=== PATIENT | male | born 1940 | race Caucasian/White ===

== ENCOUNTER 2018-04-14 22:26 | Emergency (ER) | payer MEDICARE, OTHER, SELFPAY ==
[2018-04-14 22:28] VITALS: BP 180/85; PULSE 66; RESP 18; TEMP 36.8; O2SAT 96; BMI 27.4
--- NOTE | 2018-04-14 22:33 | ED.RN ---
CALLED FOR EKG PER RN REQUEST, NO OLD EKG'S IN MUSE
--- NOTE | 2018-04-14 23:12 | EKG12_ITS ---
Test Reason : DIZZINESS Blood Pressure : / mmHG Vent. Rate : 067 BPM Atrial Rate : 067 BPM P-R Int : 178 ms QRS Dur : 096 ms QT Int : 416 ms P-R-T Axes : 013 018 026 degrees QTc Int : 439 ms Normal sinus rhythm Nonspecific ST abnormality Abnormal ECG Confirmed by DINESH STARKS, LUIS ([id number]), news editor SARAN MIN ([id number]) on 04/16/2018 3:02:18 PM Referred By: Confirmed By:LUIS MONTIEL MD
--- NOTE | 2018-04-14 23:12 | CT_ITS ---
STUDY: CT BRAIN WITHOUT CONTRAST REASON FOR EXAM: Male, 77 years old. Vertigo, nausea and elevated blood pressure. History of hypothyroidism. RADIATION DOSAGE (If Supplied By Facility): CTDIvol = ( 44.99 ) mGy, DLP = ( 846.73 ) mGycm TECHNIQUE: Transaxial CT imaging of the brain was performed without administration of intravenous contrast material. Individualized dose optimization techniques were used for this CT. COMPARISON: None. FINDINGS: Normal soft tissue structures. Normal calvarium. Normal size ventricles and extra-axial spaces for the patient's age. There are minimal areas of decreased attenuation within the white matter tracts of the supratentorial brain, consistent with microvascular disease changes. There are small punctate calcifications of the basal ganglia which are seen in the aging brain as a normal variant. Normal brainstem. Normal cerebellum. There is no intracranial hemorrhage. There are no findings of an acute ischemic infarction. Normal visualized paranasal sinuses. CT/Brain/Head without Contrast IMPRESSION: Normal unenhanced CT scan of the brain for age. Electronically Signed: Josie Mccarthy MD at 23:46 EDT , Service support ,
--- NOTE | 2018-04-14 23:15 | ED.DCSUM_ITS ---
- ER Visit Summary Date of Service: 04/14/18 Chief Complaint: [] Dizziness and vertigo History of Present Illness: The patient is a 77 M planing of vertigo that started an hour and a half ago lasted 5 minutes. It was sudden onset when he was trying to look for a screw at his work bench. He had 2 episodes of emesis and felt like the room was spinning. Currently his symptoms resolved. He has had benign vertigo in the past. 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 He has never had a stroke or TIA. No home treatment. Physical Examination: Vital signs reviewed General: Well-nourished well-developed Head: Normocephalic atraumatic Eyes: Pupils equal round and reactive to light extraocular movements intact ENT: TMs clear no hemotympanum no trauma Neck: Nontender full range of motion Cardiovascular: Regular rate rhythm no murmurs normal S1-S2 Respiratory: No distress clear to auscultation bilaterally chest nontender Abdomen: Soft nontender nondistended normal bowel sounds no masses Back: Nontender no CVA tenderness Extremities: Nontender active range of motion ?4 extremities no trauma Skin: Normal color no trauma Neuro alert oriented cranial nerves II through XII intact normal strength sensation reflexes Test Results: [] Emergency Department Course and Treatment: [] Patient ambulated without problem. At this time I think he likely had otolith that got blocked and semicircular canals of his inner ear. Symptoms are resolved likely dislodged. EKG shows sinus at 67 without ischemia. Lab work and CT head obtained. Lab work essentially normal except chloride 109. CT had showed nothing acute. Patient remains asymptomatic. Again I feel this is peripheral vertigo. Symptoms resolved. He will follow-up as an outpatient. Do not feel this is central Treatment Plan: [] Disposition: [] Impression: [] Peripheral vertigo This note was generated with [employer] dictation software. It may contain incorrect words, spelling, and punctuation that were not noted in review of the chart prior to signing ED Disposition - Plan for ED Patient: Chief Complaint: Dizziness
[2018-04-14 23:25] LABS: Absolute Lymphocyte Count 2.34 X10^3/ul (0.83-4.51); Anion Gap 4 (5-15); BUN 12 mg/dL (7-18); BUN/Creat Ratio 12.7 RATIO (10-20); Basophil# 0.04 X10^3/uL; Basophil% 0.5 % (0-1); Calcium,Total 8.7 mg/dL (8.5-10.1); Chloride 109 mmol/L (98-107); Creatinine, Serum 0.94 mg/dL (0.70-1.30); EST Glomerular Filtration Rate 83 mL/min (>60); Eosinophil# 0.27 X10^3/uL; Eosinophils% 3.7 % (0-5); Est Glom Filt Rate - Afr Amer 100 mL/min (>60); Estimated Creatinine Clearance 70.11 ml/min; Glucose 108 mg/dL (74-106); Hematocrit 43.7 % (40-54); Hemoglobin 14.1 g/dl (13.0-16.5); Lymphocyte # 2.34 X10^3/ul (4.0); Lymphocyte % 31.7 % (19-41); Mean Corp Hgb Conc 32.3 g/gl (32-36); Mean Corpuscular Hgb 27.7 pg (27.0-32.0); Mean Corpuscular Volume 85.9 fL (80-94); Mean Platelet Vol. 10.1 fl (6.2-12.0); Monocyte% 9.5 % (0-10); Neutrophil # 4.02 X10^3/uL (2.7-7.7); Neutrophil % 54.5 % (47-70); Platelet Count 299 K/mm3 (150-450); Potassium 3.5 mmol/L (3.5-5.1); RBC Distribution Width CV 13.7 % (11.6-14.6); RBC Distribution Width SD 43.4 fl (35.1-43.9); Red Blood Count 5.09 M/mm3 (4.6-6.2); Sodium Level 141 mmol/L (136-145); White Blood Count 7.4 K/mm3 (4.4-11.0)
[2018-04-14 23:26] LABS: POSITIVE COUNT NO; POSITIVE DIFFERENTIAL NO; POSITIVE MORPHOLOGY NO
--- NOTE | 2018-04-15 00:05 | ED.DEP ---
ED Disposition - Plan for ED Patient: Chief Complaint: Dizziness Instructions: ED Vertigo Unspecified Referrals: Care Physician,No Primary [Primary Care Provider] - Nayan Sagastume DO [NON CLINICAL AFFILIATE] -
[2018-04-15 00:25] VITALS: BP 163/79; PULSE 73; RESP 20; O2SAT 99
== END 2018-04-15 00:26 | disposition home or self-care (01) ==
LOC: ED 23:39
PROVIDERS: Emergency Provider Emergency Medicine
DX: H81.399 Other peripheral vertigo, unspecified ear (principal); K21.9 Gastro-esophageal reflux disease without esophagitis; E03.9 Hypothyroidism, unspecified; N40.0 Benign prostatic hyperplasia without lower urinary tract symptoms; I49.5 Sick sinus syndrome; Z95.0 Presence of cardiac pacemaker; Z79.899 Other long term (current) drug therapy
CPT/HCPCS: 70450; 80048; 85025; 93005; 99284; A4216

== ENCOUNTER 2018-07-03 15:24 | Emergency (ER) | payer MEDICARE, OTHER, SELFPAY ==
[2018-07-03 15:25] VITALS: BP 158/78; PULSE 73; RESP 18; TEMP 36.2; O2SAT 98; BMI 25.1
--- NOTE | 2018-07-03 15:42 | RAD_ITS ---
STUDY: X-RAY - LEFT HAND REASON FOR EXAM: Table saw injury of the distal ring finger. TECHNIQUE: 3 view(s) of the hand. COMPARISON: None. FINDINGS: Normal radiocarpal articulation. Normal distal radioulnar joint. Normal visualized carpal bones. Normal carpal articulations Normal carpometacarpal articulation of the thumb. Normal second through fifth carpometacarpal joints. Normal metacarpi. There is mild joint space narrowing of the metacarpophalangeal joint of the thumb. Normal interphalangeal joint of the thumb. Normal proximal and distal phalanges of the thumb. There is joint space narrowing and subchondral cystic change of the third metacarpophalangeal joint. There is flexion deformity of the fifth digit at the proximal interphalangeal joint. Normal phalanges of the second through fifth fingers. There is a soft tissue defect of the ulnar aspect of the distal ring finger. RAD/Hand Min 3 Views IMPRESSION: Soft tissue defect at the ulnar aspect of the distal ring finger without demonstrated fracture. 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 Flexion deformity of the fifth digit. Electronically Signed: Manny Dickey MD at 16:24 EDT Tel , Service support ,
--- NOTE | 2018-07-03 15:43 | ED.VISSUMM ---
- ER Visit Summary Date of Service: 07/03/18 Chief Complaint: Laceration History of Present Illness: The patient is a 78 M presenting with a laceration to the palmar surface of his left ring finger tip. This happened on a table saw at home 1 hour ago. He is visiting from [place]. Last tetanus unknown. Denies paresthesias or chance of foreign body. He went to the urgent care and a dressing was placed. Physical Examination: He has a 1 cm full-thickness laceration/skin avulsion with on the mid aspect of the left ring fingertip distal phalanx. No active bleeding. Normal 2 point examination at 6 mm distally. No evidence of foreign body when examined under direct lighting with good hemostasis. Test Results: Left hand x-ray was negative for fracture. Emergency Department Course and Treatment: No evidence of fracture. The wound was irrigated extensively and examined under direct lighting with good hemostasis. There is no evidence of foreign body. It was repaired with 3 size 5 nylon sutures simple interrupted without difficulty. No immediate complications. Normal distal neurovascular examination after repair. No evidence of flexor tendon laceration. Treatment Plan: Follow-up for suture removal Disposition: Home in stable condition Impression: Initial encounter complicated left ring finger laceration from table saw This note was generated with [employer] dictation software. It may contain incorrect words, spelling, and punctuation that were not noted in review of the chart prior to signing ED Disposition - Plan for ED Patient: Chief Complaint: Laceration Instructions: ED Laceration Hand Prescriptions: Cephalexin [Keflex] 500 mg PO Q6 3 Days #12 capsule Referrals: Lamont Myers [Primary Care Provider] -
[2018-07-03] MEDS: Cephalexin 250 MG Capsule 500 MG PO (15:46)
[2018-07-03] MEDS: Diphth,Pertuss(Acell),Tet Vac 0.5 ML Vial IM (15:46)
[2018-07-03 16:45] VITALS: PULSE 75; RESP 15; O2SAT 98
== END 2018-07-03 16:46 | disposition home or self-care (01) ==
PROVIDERS: Emergency Provider Emergency Medicine
DX: S61.215A Laceration without foreign body of left ring finger without damage to nail, initial encounter (principal); W27.0XXA Contact with workbench tool, initial encounter; Y93.9 Activity, unspecified; Y92.9 Unspecified place or not applicable
CPT/HCPCS: 12001; 73130; 90471; 90715; 99284; J7030

== ENCOUNTER 2018-09-03 10:30 | Outpatient (RCR) | payer MEDICARE, OTHER, SELFPAY ==
--- NOTE | 2018-08-08 16:44 | HP.PTEVAL_ITS ---
Patient's Visit Information CARLENE IRWIN is a 78 year old M referred to Physical Therapy by Sonia Hoyos MD with a diagnosis of VERTIGO. Date of Evaluation: 08/08/18 Physical Therapist: Sonia Velasco DPT, OC - Visit Plan Frequency: 2-3x /Week Duration: 4-6 Weeks Plan: POSTURE CORRECTION/STRENGTHENING. VESTIBULAR REHAB. BALANCE TRAINING. WILL CONSIDER NEUROCOM TESTING. Next session: test positional and FGA for balance, treat with positional and balance considering balance testing as needed. - Subjective Subjective: Diagnosis: VERTIGO. Work/Leisure: RETIRED ON DISABILY BUT NOT ON DISABILITY NOW. RECENTLY MOVED HERE FROM [facility]. Disability: NO. Present symptoms: VERTIGO AND BALANCE PROBLEMS. Present since: ABOUT 2-3 YEARS STARTED INCREASED BALANCE PROBLEMS AND VERTIGO RETURNED ABOUT 2 MONTHS AGO. Commenced as a result of: NO APPARENT REASON. Symptoms at onset: BALANCE BEING OFF. Disturbed sleep: NO. Previous history/Previous treatment: PT IN THE PAST. Dizziness: YES. Tinnitis: CONSTANT. Nausea: NO. Difficulty Swollowing: ALWAYS - ASPIRATES. Gait: NOT USING ANY ASSISTIVE DEVICES NOW BUT CANE RANDOMLY NEEDED FOR BALANCE. Accidents: NO. Unexplained weight loss: NO. Imaging: CAT SCAN IN ED ABOUT 2-3 WEEKS AGO - NORMAL. PMH/Recent major surgery: DEAFNESS. H/O POLIO (CHILDHOOD) AND POST POLIO SYNDROME (2000) . *PACEMAKER* - FOR SICK SA NODE. PATIENT SOMETIMES PASSES OUT BUT HASN'T SINCE PACEMAKER PLACEMENT. PATIENT REPORTS POSSIBLE NEURAL TUMOR CAUSING BALANCE /PROPRIOCEPTION CHANGES IN STANDING WITH EYES CLOSED. PROSTATE PROBLEMS, THRYROIDECTOMY, DEPRESSION, BARRETS REFLUX, NARCOLEPSY. - Objective EXAM INFORMATION, GOALS AND BILLING TO BE COMPLETED BY SONIA VELASCO DPT: Sonia Velasco pt COMPLETED THE FOLLOWING i HELPED WITH THE OBJECTIVE TREATMENT OF THIS PATIENT:]. - R HALLPIKE LEON TEST. + L hallpike leon test for up torsional 8 second nystagmus with dizzyness, treated with L lester then a negative test. Walked and transferred I out of room today without acute balance deficits. Cervical AROM WFL for positional testing at least 45 degrees rotation without pain. - Goals Goal 1:: Abolish dizzyness rolling in bed Goal Time Frame: 2 Weeks Goal 2:: Balance feel normal to patient and score at least 24/30 FGA to minimize fall risk. Goal Time Frame: 4-6 Weeks Goal 3:: I approp HEP as necessary for balance and/or positional vertigo. Goal Time Frame: 4-6 Weeks Goal 4:: Patient feel like his problem is 90% better overall. Goal Time Frame: 4-6 Weeks - Rehabilitation Potential Physical Therapy Diagnosis: BPPV Rehabilitation Potential: Questionable - Anticipated Interventions Patient/Client Instruction: Educate patient on: Condition, Plan of Care, Risk Factors, Benefits of Fitness Program For the Purpose of:: To improve self management Therapeutic Exercise to Include: Postural training, Gait and locomotor training , Neuromotor development, via [employer] Balance Mas Comment: VESTIBULAR REHAB For the Purpose of:: To increase tolerance to activity/condition/position, To improve gait and locomotor functions, To improve balance, To improve safety with gait Thank you for the opportunity to evaluate your patient. For Medicare and Medicare HMO plans, please review the plan of care and approve it. It will need to be FAXED BACK to us at [phone] for Medicare purposes. Please let me know if there are questions or concerns regarding this plan of care. Physician Signature: Date:
--- NOTE | 2018-08-20 10:39 | HP.PTCOM ---
PT Communication Note 08/20/[address] oJrge L Hoyos MD , Thank you for the referral of Minh to [facility] for vestibular and balance management. He has been treated with positional treatments and spinning is gone. Steadiness remains questionable for patient hence the attached balance test. In summation, he score low on the visual and vestibualr portions of the Sensory Organization Test. He scored low on the forward excursions on the Limits of Stability Test. With these results in mind, I plan to see him for 3-4 visits to instruct in a home ex program to address these deficits and monitor his dizzy/unsteady symptoms for need for further treatment. Please let me know if there are questions regarding his therapy or testing. Thank you. Sincerely, Jorge L Velasco DPT, OC Contact Information
--- NOTE | 2018-09-03 10:59 | HP.PTDCSUM ---
HP - PT D/C Summary It has been my pleasure to treat CARLENE IRWIN under orders from Jorge L Hoyos MD, for the diagnosis of VERTIGO for a total of 6 visit(s). Discharge Date: Please see the following information for a summary of their discharge status. - Subjective Subjective: No spinning for 3 weeks. Balance might be a little better. Doing exercises at home and they will help. No falls. activities are normal. Steep stairs require care. - Overall Improvement % Improvement: 60 - Objective Objective/Function: FGA is +4 and FW weight shift is noticeably better. Romberg ec on foam is improving. - Goals Goal 1:: Abolish dizzyness rolling in bed Goal Progress: Goal Met Goal 2:: Balance feel normal to patient and score at least 24/30 FGA to minimize fall risk. Goal Progress: Goal Met Goal 3:: I approp HEP as necessary for balance and/or positional vertigo. Goal Progress: Goal Met Goal 4:: Patient feel like his problem is 90% better overall. Goal Progress: Progressing - Plan Plan: D/C - D/C Information If there are questions or concerns regarding this patient's physical therapy, please feel free to call me at [phone]. Thank you for the referral of this patient. Sincerely, Jorge L Velasco, SINANT, OC
== END 2018-09-03 19:00 | disposition home or self-care (01) ==
LOC: PT 10:30
PROVIDERS: Visit Provider Otolaryngology
DX: R42 Dizziness and giddiness (principal)
CPT/HCPCS: 97110; 97162; 97530; 97750

== ENCOUNTER 2018-12-28 16:21 | Inpatient (IN) | payer MEDICARE, OTHER, SELFPAY ==
[2018-12-28] VITALS (10 sets, daily range): BP systolic 139–166; BP diastolic 61–96; PULSE 60–61; RESP 13–22; TEMP 35–37.2; O2SAT 93–99; BMI 27.1; BMI 24.8
--- NOTE | 2018-12-28 16:32 | EKG12_ITS ---
Test Reason : NEURO Blood Pressure : / mmHG Vent. Rate : 060 BPM Atrial Rate : 060 BPM P-R Int : 246 ms QRS Dur : 098 ms QT Int : 422 ms P-R-T Axes : 013 028 051 degrees QTc Int : 422 ms Atrial-paced rhythm with prolonged AV conduction Nonspecific ST abnormality Abnormal ECG Confirmed by DINESH STARKS, LUIS ([id number]), dictionary editor SARAN MIN ([id number]) on 01/01/2019 1:32:00 PM Referred By: EBENEZER Confirmed By:LUIS MONTIEL MD
--- NOTE | 2018-12-28 16:34 | CT_ITS ---
We are attempting to reach Ricardo Alfaro MD to discuss findings. An addendum with communication details will be sent when the communication is complete. STUDY: CT BRAIN WITHOUT CONTRAST REASON FOR EXAM: Male, 78 years old. CVA. RADIATION DOSAGE (If Supplied By Facility): CTDIvol = ( 44.99 ) mGy, DLP = ( 829.85 ) mGycm TECHNIQUE: Transaxial CT imaging of the brain was performed without administration of intravenous contrast material. Individualized dose optimization techniques were used for this CT. COMPARISON: 04/14/2018. FINDINGS: Normal soft tissue structures. Normal calvarium. Normal size ventricles and extra-axial spaces for the patient's age. There are areas of decreased attenuation within the white matter tracts of the supratentorial brain, consistent with microvascular disease changes. Normal basal ganglia and thalami. Normal brainstem. Normal cerebellum. There is no intracranial hemorrhage. There are no findings of an acute ischemic infarction. Normal visualized paranasal sinuses. CT/Brain/Head without Contrast IMPRESSION: No definite acute abnormality or change. Mild diffuse chronic white matter disease. This is stable. Electronically Signed: Reynaldo Singh MD at 16:58 EST , Service support ,
--- NOTE | 2018-12-28 16:38 | RAD_ITS ---
STUDY: X-RAY CHEST REASON FOR EXAM: Male, 78 years old. Stroke symptoms. Altered speech. TECHNIQUE: Portable chest. COMPARISON: None. FINDINGS: Dual lead cardiac pacemaker is noted on the left. The lungs are clear and expanded. There is no demonstrated pleural abnormality. Normal size heart. Normal mediastinum and jorge. Normal visualized pulmonary arteries. Normal visualized aortic arch and descending thoracic aorta. The patient is status post cervical discectomy and fusion with hardware in place. Moderate degenerative changes of the shoulders are noted bilaterally. Soft tissues are unremarkable. RAD/Chest 1 View IMPRESSION: No acute findings. Electronically Signed: Santa López MD at 18:11 EST Tel , Service support ,
[2018-12-28 16:52] LABS: Absolute Lymphocyte Count 1.65 X10^3/ul (0.83-4.51); Absolute Neutrophil Count 4.1 X10^3/uL (2.0-7.7); Basophil# 0.02 X10^3/uL; Basophil% 0.3 % (0-1); Eosinophil# 0.12 X10^3/uL; Eosinophils% 1.8 % (0-5); Hematocrit 42.5 % (40-54); Hemoglobin 14.7 g/dl (13.0-16.5); Lymphocyte # 1.65 X10^3/ul (4.0); Lymphocyte % 25.4 % (19-41); Mean Corp Hgb Conc 34.6 g/gl (32-36); Mean Corpuscular Hgb 29.3 pg (27.0-32.0); Mean Corpuscular Volume 84.7 fL (80-94); Monocyte# 0.64 X10^3/uL; Monocyte% 9.9 % (0-10); Neutrophil # 4.05 X10^3/uL (2.7-7.7); Neutrophil % 62.4 % (47-70); Platelet Count 261 K/mm3 (150-450); RBC Distribution Width CV 14.4 % (11.6-14.6); RBC Distribution Width SD 43.8 fl (35.1-43.9); Red Blood Count 5.02 M/mm3 (4.6-6.2); White Blood Count 6.5 K/mm3 (4.4-11.0)
[2018-12-28 16:53] LABS: POSITIVE COUNT NO; POSITIVE DIFFERENTIAL NO; POSITIVE MORPHOLOGY NO
[2018-12-28 17:00] LABS: Partial Thromboplast Time 27.5 Seconds (24.1-36.2)
[2018-12-28 17:12] LABS: Anion Gap 8 (5-15); BUN 16 mg/dL (7-18); BUN/Creat Ratio 13.3 RATIO (10-20); Calcium,Total 9.1 mg/dL (8.5-10.1); Chloride 102 mmol/L (98-107); EST Glomerular Filtration Rate 63 mL/min (>60); Est Glom Filt Rate - Afr Amer 76 mL/min (>60); Estimated Creatinine Clearance 54.07 ml/min; Glucose 110 mg/dL (74-106); Potassium 3.7 mmol/L (3.5-5.1); Sodium Level 136 mmol/L (136-145)
--- NOTE | 2018-12-28 17:52 | ED.DCSUM_ITS ---
- ER Visit Summary Date of Service: 12/28/18 Chief Complaint: Speech changes History of Present Illness: The patient is a 78 M with speech changes that started suddenly around 3:45 PM today. His noted that he was not making sense when he spoke. He denies any vision changes or facial droop. 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 He fell 2 days ago and thinks this is related to a vasovagal event. He injured his back and right arm but did not hit his head or neck. He has been having headaches ongoing for days. No history of stroke. Physical Examination: Afebrile and vital signs unremarkable. Alert and oriented but he does have some issues with a mild expressive aphasia. Cranial nerves otherwise unremarkable. No facial droop. Heart regular. Lungs clear. Abdomen soft. No focal or lateralizing neurologic abnormalities. NIH stroke scale is 1. Test Results: EKG showed a paced rhythm with nonspecific changes. No sign of ischemia or infarction. Chest x-ray pending. CT brain showed chronic changes. CBC, metabolic panel, coags, troponin unremarkable. Emergency Department Course and Treatment: Patient had an NIH stroke scale of 1. No indication for team. His symptoms were already improving per his on arrival to the ED. He was placed on a monitor. EKG, labs, imaging performed. Workup was fairly unremarkable. On reevaluation, his aphasia had improved. He did complain of some left side decreased sensation for nursing and he did not know where he was transiently for nursing, but this had resolved when I r eevaluated him. I discussed with the hospitalist for admission for further care. Treatment Plan: As above Disposition: Admission Impression: 1. Expressive aphasia This note was generated with [employer] dictation software. It may contain incorrect words, spelling, and punctuation that were not noted in review of the chart prior to signing ED Disposition - Plan for ED Patient: Referrals: Lamont Myers MD [Primary Care Provider] -
--- NOTE | 2018-12-28 17:59 | PCM.HP.STD ---
Problem List (1) Hypothyroidism Status: Chronic (2) BPH (benign prostatic hyperplasia) Status: Chronic (3) GERD (gastroesophageal reflux disease) Status: Chronic (4) Depression Status: Chronic (5) Anxiety Status: Chronic (6) Status post placement of cardiac pacemaker Status: Chronic History of Present Illness Date of Admission: 12/28/18 Chief Complaint: Speech difficulty. The patient is a 78 year old M who presents emergency room due to speech difficulty. Patient reports he had garbled speech and difficulty getting words out at approximately 3:45 this afternoon. Symptoms lasted until arriving in the emergency room. Symptoms have since resolved. witnessed this event. He denies other neurologic symptoms. Denies vision changes, slurred speech, weakness. No history of CVA. Patient reports he fell 2 days ago which he thinks was secondary to vasovagal event. He also reports intermittent sharp headaches over the past 2 weeks. Patient reports he recently moved to the area and is working on establishing with local physicians. He has a past medical history of hypothyroidism, BPH, GERD, anxiety, depression, status post pacemaker, post polio syndrome, TABATHA. Past Medical History Past Medical History (Chronic Problems): Chronic Problems Hypothyroidism (Chronic) BPH (benign prostatic hyperplasia) (Chronic) GERD (gastroesophageal reflux disease) (Chronic) Depression (Chronic) Anxiety (Chronic) Status post placement of cardiac pacemaker (Chronic) Allergies No Known Allergies Allergy (Verified 07/03/18 15:26) Home Medications: Ambulatory Orders Medication Instructions Recorded Alprazolam [Xanax] 0.5 mg PO Q12H PRN PRN 04/14/18 Esomeprazole Magnesium 40 mg PO DAILY 04/14/18 Levothyroxine [Synthroid] 88 mcg PO DAILY 04/14/18 Meloxicam 7.5 mg PO PRN PRN 04/14/18 Tamsulosin HCl [Flomax] 0.4 mg PO DAILY 04/14/18 Testosterone Cypionate 100 mg IM QWEEK 04/14/18 [Depo-Testosterone] Vortioxetine Hydrobromide 20 mg PO DAILY 04/14/18 [Brintellix] Nitroglycerin 0.4 mg SL X1 PRN 12/28/18 Ranitidine HCl [Acid Television Presenter] 150 mg PO DAILY 12/28/18 Surgical History: - - Bilateral cataract surgery, cervical spine fusion, thyroidectomy, sinus surgery, pacemaker. Psychiatric History: Anxiety, Depression Lives: Spouse/ Significant Other Smoking Status: Never smoker Alcohol: None Drugs: None - *Family History Maternal History Items: - - MVA Paternal History Items: - - COPD Review of Systems Constitutional: Denies: Chills, Fever, Weight Change HEENT: Denies: Head Aches, Sinus Congestion, Sinus Drainage Cardiovascular: Denies: Chest Pain, Palpitations Respiratory: Denies: Cough, Shortness of breath at rest, Sputum production Gastrointestinal: Denies: Abdominal Pain, Nausea, Vomiting Genitourinary: Denies: Dysuria Musculoskeletal: Denies: Joint Pain, Joint Tenderness Skin: Denies: Rash, Wounds Neurological: Reports: Change in Speech. Denies: Blurred vision, Confusion, Focal weakness, Numbness, Tingling Psychiatric: Reports: Anxiety, Depression Hematologic/ Lymphatic: Denies: Easy Bruising, Easy Bleeding VTE Information - Inpt Only VTE Present on Admission: No VTE Mechan Device Prophylaxis: None VTE Pharm Prophylaxis ordered?: Yes - Physical Exam General: Alert, Oriented x3, Cooperative HEENT: Atraumatic, PERRLA, EOMI, Normocephalic Neck: Supple, No JVD, Negative Carotid Bruits Lungs: Clear to auscultation, Normal air movement Cardiovascular: Regular rate, Regular Rhythm, Normal S1, Normal S2, No murmurs Abdomen: Bowel Sounds Present, Soft, Non Tender, Non-Distended Extremities: No clubbing, No cyanosis, No edema, Capillary Refill Less than 3 Seconds Skin: No rashes, No breakdown Musculoskeletal: No Tenderness to Palpation of Joints or Extremities Neurological: Cranial nerves II-XII grossly intact, Neuro grossly intact Psych/Mental Status: Normal Affect, Appropriate Vital Signs Temp Pulse Resp BP Pulse Ox 98.1 F 60 17 139/61 H 95 12/28/18 16:24 12/28/18 17:22 12/28/18 17:22 12/28/18 17:22 12/28/18 17:22 Oxygen Flow Rate (L/min) 97 Oxygen Delivery Method Room Air Weight: 188 lb 14.978 oz Body Mass Index (BMI) 27.1 Finger Stick Blood Glucose 112 Laboratory Tests Past 24 Hrs 12/28/18 12/28/18 12/28/18 16:35 16:35 16:35 WBC 6.5 RBC 5.02 Hgb 14.7 Hct 42.5 MCV 84.7 MCH 29.3 MCHC 34.6 RDW 14.4 RDW Differential 43.8 Plt Count 261 MPV 10.0 Immature Gran % (Auto) 0.200 Neut % (Auto) 62.4 Lymph % (Auto) 25.4 Archuleta % (Auto) 9.9 Eos % (Auto) 1.8 Baso % (Auto) 0.3 Absolute Neuts (auto) 4.1 Absolute Lymphs (auto) 1.65 Total Counted Not Reportable PT 13.0 INR 1.0 APTT 27.5 Sodium 136 Potassium 3.7 Chloride 102 Carbon Dioxide 26.0 Anion Gap 8 BUN 16 Creatinine 1.20 Estim Creat Clear Calc 54.07 Est GFR (MDRD) Af Amer 76 Est GFR (MDRD) Non-Af 63 BUN/Creatinine Ratio 13.3 Glucose 110 H Calcium 9.1 Troponin I < 0.015 Assessment/Plan 1. Speech difficulty-rule out CVA. Neurology consulted. Brain CT negative for acute process. Obtain CTA of head and neck. Aspirin, statin, Plavix. Obtain MRI of brain, MRA of head and neck if pacemaker is compatible. PT/OT/ST. lipid panel in a.m. [facility] Q4. 2. Elevated blood pressure without history of hypertension-permissive given #1. Continue to monitor. 3. 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 Acquired hypothyroidism status post thyroidectomy-continue Synthroid regimen. 5. BPH-continue Flomax. Follows with Dr. Ravi. 6. TABATHA-states he wore CPAP for 20 years. Working on repeat sleep study to obtain a new CPAP. 7. GERD-continue PPI 8. Anxiety/Depression-continue home regimen. 9. 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 Alarcon, [facility] cardiology. DVT prophylaxis-lovenox sc This patient was seen by aTlia New, [facility] under the supervision of Dr. Arboleda.
--- NOTE | 2018-12-28 18:42 | CT_ITS ---
STUDY: CTA NECK WITH CONTRAST REASON FOR EXAM: Male, 78 years old. TIA. Stroke. RADIATION DOSAGE (If Supplied By Facility): CTDIvol = ( 26.48 ) mGy, DLP = ( 1438.92 ) mGycm TECHNIQUE: CT angiography with multi-detector data acquisition was performed from the aortic arch to the skull base following intravenous administration of 100ml ml of Isovue 370 contrast. MIP images were reconstructed from the axial data set. Post-processing of the angiographic images was performed, with multiplanar reformation and 3D reconstruction. Individualized dose optimization techniques were used for this CT. COMPARISON: None. FINDINGS: AORTIC ARCH: Normal visualized aortic arch. Normal origins of the brachiocephalic, left common carotid, and left subclavian arteries. RIGHT CAROTID ARTERIES: Normal right common carotid artery (CCA). Normal right common carotid bulb. Normal origin of the right internal carotid (ICA) artery without a hemodynamically significant stenosis. Normal visualized cervical portion of the right internal carotid artery. Normal origin of the right external carotid artery (ECA). LEFT CAROTID ARTERIES: Normal left common carotid artery (CCA). Normal left common carotid bulb. Normal origin of the left internal carotid (ICA) artery without a hemodynamically significant stenosis. Normal visualized cervical portion of the left internal carotid artery. Normal origin of the left external carotid artery (ECA). VERTEBRAL ARTERIES: Normal bilateral vertebral arteries. CT/CTA Neck W/WO Contrast IMPRESSION: Normal bilateral cervical carotid and vertebral arteries. Electronically Signed: Reynaldo Singh MD at 20:38 EST , Service support ,
--- NOTE | 2018-12-28 18:42 | CT_ITS ---
STUDY: CTA OF THE BRAIN REASON FOR EXAM: Male, 78 years old. Stroke, garbled speech. RADIATION DOSAGE (If Supplied By Facility): CTDIvol = ( 26.48 ) mGy, DLP = ( 1438.92 ) mGycm TECHNIQUE: CT angiography was performed with a multi-detector CT scanner. Data acquisition was obtained from the skull base through the vertex following intravenous administration of ml of . MIP images were reconstructed from the axial data set. Post-processing of the angiographic images was performed, with multiplanar reformation and 3D reconstruction. Individualized dose optimization techniques were used for this CT. COMPARISON: CT brain 12/28/2018. FINDINGS: CT brain: There is no intracranial mass, hemorrhage, or acute territorial infarct. Ventricles are normal in size. There is no osseous abnormality. Sinuses are clear. CTA brain: Normal bilateral petrous carotid arteries. Normal right cavernous carotid artery with a normal supraclinoid bifurcation. Normal left cavernous carotid artery with a normal supraclinoid bifurcation. Normal right A1 segments of the anterior cerebral artery. Normal left A1 segments of the anterior cerebral artery. There is non-visualization of the anterior communicating artery (ACOM). Normal bilateral A2 segments of the anterior cerebral arteries. Normal right M1 and M2 segments of the middle cerebral arteries, with a normal M1 bifurcation. Normal left M1 and M2 segments of the middle cerebral arteries, with a normal M1 bifurcation. Normal right posterior communicating artery (PCOM). Normal left posterior communicating artery (PCOM). There is a dominant left vertebral artery. The right vertebral artery terminates as the posterior inferior cerebellar artery. This is a normal variant. Normal basilar artery with a normal basilar bifurcation. The visualized bilateral superior cerebellar (SCA) arteries are normal. There is a hypoplastic P1 segment of the right posterior cerebral artery, with a well demonstrated posterior communicating artery. Normal bilateral P2 and visualized P3 segments of the posterior cerebral arteries. There is no demonstrated aneurysm of the [place]. CT/CTA Head W/WO Contrast IMPRESSION: Normal [place] without a demonstrated aneurysm or significant stenosis. Electronically Signed: Santa López MD at 21:45 EST Tel , Service support ,
[2018-12-28] MEDS: Clopidogrel Bisulfate 75 MG Tablet PO (22:18)
[2018-12-28] MEDS: Aspirin 81 MG TAB.CHEW PO (22:18)
[2018-12-28] MEDS: Atorvastatin Calcium 80 MG Tablet PO (22:18)
[2018-12-29] VITALS (13 sets, daily range): BP systolic 121–158; BP diastolic 56–78; PULSE 60; RESP 16–18; TEMP 36.9–37.3; O2SAT 93–95; BMI 24.8
[2018-12-29] MEDS: Enoxaparin 40 MG/0.4 ML Syringe SC (06:08)
[2018-12-29] MEDS: Levothyroxine 88 MCG Tablet PO (06:08)
[2018-12-29 07:12] LABS: Cholesterol 138 mg/dL (200); High Density Lipoprotein 43 mg/dL; Thyroid Stim Hormone (TSH) 0.75 uIU/mL (0.358-3.74); Triglycerides 121 mg/dL; Very Low Density Lipoprotein 24 mg/dL (5-40)
--- NOTE | 2018-12-29 09:31 | CON.PCM_ITS ---
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 History is obtained from the patient as well as medical records. Per patient his speech disturbance started yesterday (12/28/2018) in the morning around 9 AM when he was talking to his and he was not making any sense, he thought he was making sense but actually he was not per patient, then he started to write something and he realized that he was not making any sense while writing and per patient the episode lasted until he came to the emergency room around 3:45 PM to 4 PM yesterday. But per documentation of the ED notes as well as hospitalist documentation speech disturbances started around 3:45 PM yesterday evening. And probably the speech disturbance lasted for more than 1 hour before resolving. There is no documentation of facial droop, new onset focal motor weakness, denies any sensory loss, visual disturbances. Patient has history of migraines in the past, at present does not get the headaches as he used to get in the past but sometimes gets visual aura. Per patient he is more forgetful, does not remember things and has memory issues for the past 6 months or so, also had some issues with driving and has not been driving for the past few weeks, complains of intermittent visual hallucinations, denies any resting tremors bradykinesia and gait difficulty or frequent falls. Denies any REM behavior sleep disorders, denies any vision loss, jaw claudication or temporal tenderness. Per patient he does not use any cane or walker to ambulate, denies any frequent falls and per patient recently has stopped driving. Per patient he had a history of vasovagal episodes in the past which improved following pacemaker insertion. CT head on admission reported nothing acute. The CT angiogram head and neck done on admission did not show any hemodynamically significant stenosis or occlusion. Per patient he does not take any aspirin at baseline. Past Medical History Past Medical History (Chronic Problems): Chronic Problems Hypothyroidism (Chronic) BPH (benign prostatic hyperplasia) (Chronic) GERD (gastroesophageal reflux disease) (Chronic) Depression (Chronic) Anxiety (Chronic) Status post placement of cardiac pacemaker (Chronic) Allergies No Known Allergies Allergy (Verified 07/03/18 15:26) Home Medications: Ambulatory Orders Medication Instructions Recorded Alprazolam [Xanax] 0.5 mg PO Q12H PRN PRN 04/14/18 Esomeprazole Magnesium 40 mg PO DAILY 04/14/18 Levothyroxine [Synthroid] 88 mcg PO DAILY 04/14/18 Meloxicam 7.5 mg PO PRN PRN 04/14/18 Tamsulosin HCl [Flomax] 0.4 mg PO DAILY 04/14/18 Testosterone Cypionate 100 mg IM QWEEK 04/14/18 [Depo-Testosterone] Vortioxetine Hydrobromide 20 mg PO DAILY 04/14/18 [Brintellix] Amoxicillin [Amoxil] 500 mg PO TID 12/28/18 Nitroglycerin 0.4 mg SL X1 PRN 12/28/18 Ranitidine HCl [Acid Electric Locomotive Firer/Fireman] 150 mg PO DAILY 12/28/18 Surgical History: - - Bilateral cataract surgery, cervical spine fusion, thyroidectomy, sinus surgery, pacemaker. Psychiatric History: Anxiety, Depression Lives: Spouse/ Significant Other Smoking Status: Never smoker Alcohol: None Drugs: None - *Family History Maternal History Items: - - MVA Paternal History Items: - - COPD Review of Systems Constitutional: Reports: - - Complete ROS negative except as documented in HPI Patient Problems: Active and Suspected Problems TIA (transient ischemic attack) (Acute) - Physical Exam General: Alert HEENT: Normocephalic Neck: Supple Lungs: Normal air movement Cardiovascular: Normal S1, Normal S2 Abdomen: Bowel Sounds Present Extremities: No cyanosis Neurological: - - Consious, alert, CN II-XII grossly intact, power 5/5 right UE/LE, left UE 4/5 strength, left LE -5/5, muscle wasting and atrophy noticed in the left arm (chronic due to polio), denies any sensory loss, no cerebellar signs, reflexes + B/L B/S/T/K/A, gait mildly wide-based, no rigidity or bradykinesia appreciated at present,? Mild fine tremors bilateral upper extremities on outstretched hands intermittently. NIHSS 0 at present, mRS 0 at baseline Psych/Mental Status: Normal Affect Vital Signs Temp Pulse Resp BP Pulse Ox 99.0 F 60 18 121/56 H 95 12/29/18 06:03 12/29/18 08:00 12/29/18 06:03 12/29/18 06:03 12/29/18 06:03 Oxygen Flow Rate (L/min) 97 Oxygen Delivery Method Room Air Weight: 78.471 kg Body Mass Index (BMI) 24.8 Finger Stick Blood Glucose 112 Intake and Output for Last 24 Hours 12/27/18 12/28/18 12/29/18 23:59 23:59 23:59 Intake Total 240 / 240 120 / 120 Balance 240 / 240 120 / 120 Laboratory Tests Past 24 Hrs 12/28/18 12/28/18 12/28/18 16:35 16:35 16:35 WBC 6.5 RBC 5.02 Hgb 14.7 Hct 42.5 MCV 84.7 MCH 29.3 MCHC 34.6 RDW 14.4 RDW Differential 43.8 Plt Count 261 MPV 10.0 Immature Gran % (Auto) 0.200 Neut % (Auto) 62.4 Lymph % (Auto) 25.4 [place] % (Auto) 9.9 Eos % (Auto) 1.8 Baso % (Auto) 0.3 Absolute Neuts (auto) 4.1 Absolute Lymphs (auto) 1.65 Total Counted Not Reportable PT 13.0 INR 1.0 APTT 27.5 Sodium 136 Potassium 3.7 Chloride 102 Carbon Dioxide 26.0 Anion Gap 8 BUN 16 Creatinine 1.20 Estim Creat Clear Calc 54.07 Est GFR (MDRD) Af Amer 76 Est GFR (MDRD) Non-Af 63 BUN/Creatinine Ratio 13.3 Glucose 110 H Calcium 9.1 Troponin I < 0.015 Triglycerides Cholesterol LDL Cholesterol VLDL Cholesterol HDL Cholesterol TSH 12/29/18 05:42 WBC RBC Hgb Hct MCV MCH MCHC RDW RDW Differential Plt Count MPV Immature Gran % (Auto) Neut % (Auto) Lymph % (Auto) [place] % (Auto) Eos % (Auto) Baso % (Auto) Absolute Neuts (auto) Absolute Lymphs (auto) Total Counted PT INR APTT Sodium Potassium Chloride Carbon Dioxide Anion Gap BUN Creatinine Estim Creat Clear Calc Est GFR (MDRD) Af Amer Est GFR (MDRD) Non-Af BUN/Creatinine Ratio Glucose Calcium Troponin I Triglycerides 121 Cholesterol 138 LDL Cholesterol 71 VLDL Cholesterol 24 HDL Cholesterol 43 TSH 0.75 Assessment/Plan All Active Problems TIA (transient ischemic attack) (Acute) Speech disturbance (Resolved) The patient is a 78 year old M with PMH of sick sinus syndrome status post cardiac pacemaker, history of poliomyelitis with left upper extremity weakness and left arm muscle wasting anxiety/depression, H/O migraines, hypothyroidism, BPH admitted with acute onset speech disturbances. History is obtained from the patient as well as medical records. Per patient his speech disturbance started yesterday (12/28/2018) in the morning around 9 AM when he was talking to his and he was not making any sense, he thought he was making sense but actually he was not per patient, then he started to write something and he realized that he was not making any sense while writing and per patient the episode lasted until he came to the emergency room around 3:45 PM to 4 PM yesterday. But per documentation of the ED notes as well as hospitalist documentation speech disturbances started around 3:45 PM yesterday evening. And probably the speech disturbance lasted for more than 1 hour before resolving. There is no documentation of facial droop, new onset focal motor weakness, denies any sensory loss, visual disturbances. Patient has history of migraines in the past, at present does not get the headaches as he used to get in the past but sometimes gets visual aura. Per patient he is more forgetful, does not remember things and has memory issues for the past 6 months or so, also had some issues with driving and has not been driving for the past few weeks, complains of intermittent visual hallucinations, denies any resting tremors bradykinesia and gait difficulty or frequent falls. Denies any REM behavior sleep disorders, denies any vision loss, jaw claudication or temporal tenderness. Per patient he does not use any cane or walker to ambulate, denies any frequent falls and per patient recently has stopped driving. Per patient he had a history of vasovagal episodes in the past which improved following pacemaker insertion. CT head on admission reported nothing acute. The CT angiogram head and neck done on admission did not show any hemodynamically significant stenosis or occlusion. Per patient he does not take any aspirin at baseline. Impression TIA vs rule out stroke Memory loss H/O migraines Plan ?Aspirin 81 mg p.o. once daily and Plavix 75 mg p.o. once daily. Dual antiplatelet for 3 weeks, then switch to single antiplatelet with aspirin. Bleeding risk discussed in detail with the patient. ABCD2 score atleast 5. ?Lipitor 40 mg p.o. nightly ?MRI brain without contrast if no contraindication. If MRI brain cannot be done given the history of pacemaker insertion repeat CT head in 24 hours. ?CT angiogram head and neck did not report to show any hemodynamically significant stenosis or occlusion ?LDL 71, HbA1c pending ?TSH 0.75, check vitamin B12 -Labs reviewed. Await UA ?Check TTE -Frequent neurochecks. ?Pacer interrogation by cardiology ?Would need neurocognitive evaluation as outpatient as well as possible PET scan evaluation for further determination of memory issues/dementia. ?Patient currently not driving. Would recommend not to drive. Per patient he had issues with driving recently. ?PT/OT/ST ?Fall precautions ?GI/DVT prophylaxis ?Further medical management per hospitalist team ?Follow-up with neurology as outpatient in 2-3 weeks. ?Please call with questions if any. -Thank you for allowing us to participate in patient's current management Code Visit Inpatient E&M: [id number] Init Hosp L3
--- NOTE | 2018-12-29 09:41 | ECHOD_ITS ---
Reason For Study: TIA/Stroke Procedure This was a 2D Doppler, Color Flow transthoracic echocardiogram. Exam performed portable in patient room. Left Ventricle Normal LV size. Left ventricular systolic function is normal. The estimated ejection fraction is 60 %. Stage 1 diastolic dysfunction. No regional wall motion abnormalities noted. Right Ventricle Normal RV size. ICD or pacer leads identified within the right ventricle. Normal systolic function. Atria Normal left atrium. Normal right atrium. Patent foramen ovale. Mitral Valve Normal mitral valve. Mild (1+) eccentric mitral valve insufficiency. Tricuspid Valve Normal tricuspid valve. Mild tricuspid valve insufficiency. Pulmonary artery systolic pressure is 22 mmHg. Aortic Valve Trisinus/trileaflet aortic valve. Mild-Moderate (1-2+) eccentric aortic valve insufficiency. Pulmonic Valve Normal pulmonic valve. Great Vessels Normal aortic root. The pulmonary artery is normal size. Inferior vena cava collapse with respiration. Pericardium/Pleural No pericardial effusion. Medication Performed a rapid injection of agitated mix of 9 cc saline and 1cc air to assess for atrial septal defect. MMode/2D Measurements & Calculations LVIDd: 3.7 cm IVSd: 1.2 cm Ao root diam: 3.2 cm LVIDs: 2.7 cm LVPWd: 0.94 cm RVDd: 4.1 cm FS: 27.8 % LAV(MOD-bp): 30.9 ml LVAd ap4: 28.4 cm2 SV(MOD-sp4): 53.7 ml LAV(MOD-bp) Indexed: 15.8 ml/m2 EDV(MOD-sp4): 84.0 ml LAV(MOD-sp2): 27.7 ml EDV(sp4-el): 86.9 ml LAV(MOD-sp4): 31.4 ml LVAs ap4: 14.8 cm2 ESV(MOD-sp4): 30.3 ml ESV(sp4-el): 30.3 ml EF(MOD-sp4): 64.0 % EF(sp4-el): 65.1 % SV(sp4-el): 56.6 ml LA A4 area: 13.6 cm2 LA dimension(2D): 3.1 cm RA A4 area: 18.3 cm2 Doppler Measurements & Calculations MV E max jose: 54.5 cm/sec Lat Peak E' Jose: 66.3 cm/sec Med Peak E' Jose: 3.7 cm/sec MV A max jose: 83.6 cm/sec E/E' lat: 0.82 E/E' med: 14.5 MV E/A: 0.65 Ao V2 max: 132.7 cm/sec AI max jose: 431.5 cm/sec PA V2 max: 86.8 cm/sec Ao max P.0 mmHg AI max P.5 mmHg Ao V2 mean: 93.7 cm/sec Ao mean P.9 mmHg AI dec slope: 203.9 cm/sec2 Ao V2 VTI: 26.3 cm AI P1/2t: 619.8 msec TR max jose: 214.8 cm/sec TR max P.5 mmHg Interpretation Summary Normal LV size. Left ventricular systolic function is normal. The estimated ejection fraction is 60 %. Stage 1 diastolic dysfunction. Patent foramen ovale. Ordering Physician: Clifford Ricardo Referring Physician: Lamont Myers Performed By: Sepideh Desai, STANTON, RVT
[2018-12-29 10:15] LABS: Erythrocyte Sedimentation Rate 7 mm/hr (0-20)
[2018-12-29] MEDS: Tamsulosin HCl 0.4 MG Capsule PO (10:25)
[2018-12-29] MEDS: Aspirin 81 MG TAB.CHEW PO (10:25)
[2018-12-29] MEDS: Famotidine 20 MG Tablet PO (10:25)
[2018-12-29] MEDS: Clopidogrel Bisulfate 75 MG Tablet PO (10:26)
[2018-12-29] MEDS: Pantoprazole Sodium 40 MG Tablet PO (10:26)
[2018-12-29 10:48] LABS: Hemoglobin A1c 5.8 % (4.2-6.3)
--- NOTE | 2018-12-29 12:45 | PN_ITS ---
Patient Problems: Active and Suspected Problems TIA (transient ischemic attack) (Acute) Subjective: Patient seen and examined. No acute events overnight. Denies further speech difficulties. - Physical Exam General: Alert, Oriented x3, Cooperative HEENT: Atraumatic, PERRLA, EOMI, Normocephalic Neck: Supple, No JVD, Negative Carotid Bruits Lungs: Clear to auscultation, Normal air movement Cardiovascular: Regular rate, Regular Rhythm, Normal S1, Normal S2, No murmurs Abdomen: Bowel Sounds Present, Soft, Non Tender Extremities: No clubbing, No cyanosis, No edema, Capillary Refill Less than 3 Seconds Skin: No rashes, No breakdown Musculoskeletal: No Tenderness to Palpation of Joints or Extremities Neurological: Cranial nerves II-XII grossly intact, Neuro grossly intact Psych/Mental Status: Normal Affect, Appropriate Vital Signs Temp Pulse Resp BP Pulse Ox 99.1 F 60 17 123/66 H 95 12/29/18 10:20 12/29/18 10:20 12/29/18 10:20 12/29/18 10:20 12/29/18 10:20 Oxygen Flow Rate (L/min) 97 Oxygen Delivery Method Room Air Weight: 173 lb Body Mass Index (BMI) 24.8 Finger Stick Blood Glucose 112 Intake and Output for Last 24 Hours 12/27/18 12/28/18 12/29/18 23:59 23:59 23:59 Intake Total 240 / 240 120 / 120 Balance 240 / 240 120 / 120 Laboratory Tests Past 24 Hrs 12/28/18 12/28/18 12/28/18 16:35 16:35 16:35 WBC 6.5 RBC 5.02 Hgb 14.7 Hct 42.5 MCV 84.7 MCH 29.3 MCHC 34.6 RDW 14.4 RDW Differential 43.8 Plt Count 261 MPV 10.0 Immature Gran % (Auto) 0.200 Neut % (Auto) 62.4 Lymph % (Auto) 25.4 [place] % (Auto) 9.9 Eos % (Auto) 1.8 Baso % (Auto) 0.3 Absolute Neuts (auto) 4.1 Absolute Lymphs (auto) 1.65 Total Counted Not Reportable ESR PT 13.0 INR 1.0 APTT 27.5 Sodium 136 Potassium 3.7 Chloride 102 Carbon Dioxide 26.0 Anion Gap 8 BUN 16 Creatinine 1.20 Estim Creat Clear Calc 54.07 Est GFR (MDRD) Af Amer 76 Est GFR (MDRD) Non-Af 63 BUN/Creatinine Ratio 13.3 Glucose 110 H Hemoglobin A1c Calcium 9.1 Troponin I < 0.015 Triglycerides Cholesterol LDL Cholesterol VLDL Cholesterol HDL Cholesterol TSH 12/29/18 12/29/18 12/29/18 05:42 05:42 05:42 WBC RBC Hgb Hct MCV MCH MCHC RDW RDW Differential Plt Count MPV Immature Gran % (Auto) Neut % (Auto) Lymph % (Auto) [place] % (Auto) Eos % (Auto) Baso % (Auto) Absolute Neuts (auto) Absolute Lymphs (auto) Total Counted ESR 7 PT INR APTT Sodium Potassium Chloride Carbon Dioxide Anion Gap BUN Creatinine Estim Creat Clear Calc Est GFR (MDRD) Af Amer Est GFR (MDRD) Non-Af BUN/Creatinine Ratio Glucose Hemoglobin A1c 5.8 Calcium Troponin I Triglycerides 121 Cholesterol 138 LDL Cholesterol 71 VLDL Cholesterol 24 HDL Cholesterol 43 TSH 0.75 Medical Necessity - Tobacco Use Smoking Status: Never smoker Assessment/Plan All Active Problems TIA (transient ischemic attack) (Acute) Speech disturbance (Resolved) 1. Speech difficulty-TIA vs rule out CVA. Neurology consulted. Brain CT negative for acute process. CTA of head and neck without acute process or significant stenosis. Aspirin, statin, Plavix. Obtain MRI of brain, MRA of head and neck if pacemaker is compatible. PT/OT/[facility] Q4. Pacer RN to confirm compatibility in the morning for MRI. Obtain echo. 2. Elevated blood pressure without history of hypertension-permissive given #1. Improved without intervention. 3. 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 Acquired hypothyroidism status post thyroidectomy-continue Synthroid regimen. 5. BPH-continue Flomax. Follows with Dr. Ravi. 6. TABATHA-states he wore CPAP for 20 years. Working on repeat sleep study to obtain a new CPAP. 7. GERD-continue PPI 8. Anxiety/Depression-continue home regimen. 9. 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 Alarcon, F cardiology. 10. Mild cognitive impairment- further outpatient work-up per neurology. DVT prophylaxis-lovenox sc This patient was seen by Talia New NP-Leatha under the supervision of Dr. Burton.
[2018-12-29 15:41] LABS: Bedside Glucose 112 mg/dL (70-110)
[2018-12-29 17:21] LABS: Red Blood Cells-Urine 0 SEEN /hpf (0-5); Squamous Epithelial Cells - UA 0 SEEN /hpf (0-5); White Blood Cells 0 SEEN /hpf (0-5)
[2018-12-29 17:27] LABS: Color, Urine Yellow (Yellow); Glucose, Dipstick Normal (Normal); Ketone-Dipstick Negative (Negative); Leukocyte Esterase-Dipstick 25 /ul (Negative); Nitrite-Dipstick Negative (Negative); Occult Blood-Urine Negative /ul (Negative); Protein-Dipstick 15 mg/dl (Negative); Specific Gravity, Urine 1.025 (1.002-1.030); Urine Bilirubin Dipstick Negative (Negative); Urine Clarity Clear (Clear); Urine Urobilinogen Normal (Normal)
[2018-12-29 17:33] LABS: Bacteria RARE /hpf (None Seen); Mucous, Urine RARE /hpf (<or=2+)
[2018-12-29] MEDS: VORTIOXETINE HYDROBROMIDE 20 MG TABLET PO (18:06)
[2018-12-29] MEDS: Atorvastatin Calcium 40 MG Tablet PO (22:29)
[2018-12-30] VITALS (12 sets, daily range): BP systolic 124–154; BP diastolic 59–70; PULSE 56–80; RESP 12–18; TEMP 36.6–37.1; O2SAT 91–94; BMI 24.8
[2018-12-30] MEDS: Levothyroxine 88 MCG Tablet PO (05:03)
[2018-12-30] MEDS: Enoxaparin 40 MG/0.4 ML Syringe SC (05:03)
[2018-12-30 06:12] LABS: Absolute Neutrophil Count 3.4 X10^3/uL (2.0-7.7); Basophil# 0.03 X10^3/uL; Basophil% 0.5 % (0-1); Eosinophil# 0.23 X10^3/uL; Eosinophils% 3.8 % (0-5); Hematocrit 41.7 % (40-54); Hemoglobin 14.2 g/dl (13.0-16.5); Lymphocyte % 29.9 % (19-41); Mean Corp Hgb Conc 34.1 g/gl (32-36); Mean Corpuscular Hgb 28.7 pg (27.0-32.0); Mean Corpuscular Volume 84.2 fL (80-94); Mean Platelet Vol. 10.1 fl (6.2-12.0); Monocyte# 0.61 X10^3/uL; Monocyte% 10.1 % (0-10); Neutrophil # 3.35 X10^3/uL (2.7-7.7); Neutrophil % 55.7 % (47-70); Platelet Count 272 K/mm3 (150-450); RBC Distribution Width CV 14.4 % (11.6-14.6); RBC Distribution Width SD 43.3 fl (35.1-43.9); Red Blood Count 4.95 M/mm3 (4.6-6.2)
[2018-12-30 06:15] LABS: POSITIVE COUNT NO; POSITIVE DIFFERENTIAL NO; POSITIVE MORPHOLOGY NO
[2018-12-30 06:36] LABS: Anion Gap 11 (5-15); BUN 14 mg/dL (7-18); BUN/Creat Ratio 14.5 RATIO (10-20); Calcium,Total 8.8 mg/dL (8.5-10.1); Chloride 105 mmol/L (98-107); Creatinine, Serum 0.97 mg/dL (0.70-1.30); EST Glomerular Filtration Rate 80 mL/min (>60); Est Glom Filt Rate - Afr Amer 97 mL/min (>60); Glucose 100 mg/dL (74-106); Potassium 3.7 mmol/L (3.5-5.1); Sodium Level 139 mmol/L (136-145)
--- NOTE | 2018-12-30 09:00 | MRI_ITS ---
STUDY: MRI BRAIN WITHOUT CONTRAST REASON FOR EXAM: Male, 78 years old. aphasia TECHNIQUE: Standardized multiplanar fat and water weighted pulse sequences were obtained. COMPARISON: CT the brain on December 28, 2018 FINDINGS: Moderate atrophy and periventricular white matter ischemic changes without mass effect or restricted diffusion There is a prominent perivascular space within the right pontine body Normal bilateral basal ganglia. Normal thalami. There is no extra-axial fluid accumulation. Normal flow voids within the major intracranial circulation suggesting patency by spin echo criteria. Normal sella turcica, pituitary gland, infundibular stalk, optic chiasm and hypothalamus. Normal tectal plate and pineal gland. Normal midbrain, and medulla. Normal cerebellum. Normal basal cisterns. Normal bilateral temporal bones. Normal bilateral internal auditory canals. There are postsurgical changes of the orbits. There is mild mucosal thickening within the ethmoid and frontal sinuses. Normal calvarium and skull base. Normal visualized soft tissue structures. Normal visualized upper cervical spine. MRI/Brain without Contrast IMPRESSION: Atrophy and periventricular white matter ischemic changes. No evidence for acute infarct Electronically Signed: Chepe Omalley MD at 16:09 EST , Service support ,
[2018-12-30] MEDS: VORTIOXETINE HYDROBROMIDE 20 MG TABLET PO (09:04)
[2018-12-30] MEDS: Tamsulosin HCl 0.4 MG Capsule PO (09:04)
[2018-12-30] MEDS: Clopidogrel Bisulfate 75 MG Tablet PO (09:04)
[2018-12-30] MEDS: Aspirin 81 MG TAB.CHEW PO (09:04)
[2018-12-30] MEDS: Pantoprazole Sodium 40 MG Tablet PO (09:04)
[2018-12-30] MEDS: Famotidine 20 MG Tablet PO (09:04)
[2018-12-30 09:17] LABS: Vitamin B12 402 pg/mL (211-911)
--- NOTE | 2018-12-30 12:00 | CASEMGMT ---
RN JENNIFER ANKLE PATCH MOLDER CM to room to meet with patient for initial transition planning/care coordination assessment. ORA RODRIGUEZ introduced self and role at [facility].? Pt voices understanding and consents to assessment at this time.? Pt resting in bed in no distress at this time.? Pt is A/O at this time and answers all questions appropriately.?? Care providers, pharmacy, and demographics verified/updated at this time. PCP: Lucia Specialists: Kamila: [place] press shop supervisor, Robert: dado operator, Dr Jimenez: EPS specialist, Trav: urologist, Dr Del Valle: Sleep specialist, Romain Raymundo. Preferred Pharmacy: [facility] [place] Insurance: [employer], [employer] Prescription Benefit:? [employer]. Living Will/HPOA:? Has both LW and HCPOA, who is his , [facility] Living Arrangements: Lives with his . Independent with most ADL's prior to admission. Transportation: Pt states was driving until about 3 weeks ago. provides transportation. DME: ? states pt has the following DME: Cane, grab bars, BIPAP. States has an appt 01/05 for new sleep study. Does not have home O2. ?Denies need for further DME at this time.? HHC/SNF: Has never been to a SNF or used HHC. PT eval reviewed. Pt and agreeable to Out-pt therapy. Pt wishes to return home and states has no concerns with going home at time of discharge.?CM to follow for any further discharge planning/needs.? Pt voices no further concerns/needs at this time.? Advised pt to ask for CM if any further questions/concerns/needs arise.? Voices understanding. PLAN: ?Home with spousal support and Out-pt therapy. Jamin PHILIP RN, CM
--- NOTE | 2018-12-30 13:11 | CASEMGMT ---
ORA CM NOTE: Script obtained for Out-pt PT eval and treat. Script given to pt and and they were made aware can take to Out-pt therapy location of their choice. Jamin PHILIP RN CM
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
--- NOTE | 2018-12-30 15:59 | NURSING ---
[id number] report called to Lashanda PAYAN, tolerating well, remained in NSR during MRI
--- NOTE | 2018-12-30 16:59 | PCM.DC ---
- Discharge Diagnoses Current Active Problems: Current Active and Chronic Problems Hypothyroidism (Chronic) BPH (benign prostatic hyperplasia) (Chronic) GERD (gastroesophageal reflux disease) (Chronic) Depression (Chronic) Anxiety (Chronic) Status post placement of cardiac pacemaker (Chronic) TIA (transient ischemic attack) (Acute) You will use the following diet at home:: No restrictions Discharge Activity: May Not Drive - Until cleared by neurology Call your doctor if you observe: Shortness of breath, Dizziness, Fainting spells, Chest pain Allergies/Adverse Reactions: Allergies No Known Allergies Allergy (Verified 07/03/18 15:26) Medications to take at Discharge Alprazolam [Xanax] 0.5 mg PO Q12H PRN PRN 04/14/18 Esomeprazole Magnesium 40 mg PO DAILY 04/14/18 Levothyroxine [Synthroid] 88 mcg PO DAILY 04/14/18 Tamsulosin HCl [Flomax] 0.4 mg PO DAILY 04/14/18 Testosterone Cypionate [Depo-Testosterone] 100 mg IM QWEEK 04/14/18 Vortioxetine Hydrobromide [Trintellix] 20 mg PO DAILY 04/14/18 Amoxicillin [Amoxil] 500 mg PO TID 12/28/18 Nitroglycerin 0.4 mg SL X1 PRN 12/28/18 Ranitidine HCl [Acid Leather Goods Maker] 150 mg PO DAILY 12/28/18 Aspirin [Aspirin, Baby] 81 mg PO DAILY@0800 #30 tab.chew 12/30/18 Atorvastatin Calcium [Lipitor] 40 mg PO QHS #30 tablet 12/30/18 Clopidogrel Bisulfate [Plavix] 75 mg PO DAILY #30 tablet 12/30/18 The following prescriptions were given: Aspirin [Aspirin, Baby] 81 mg PO DAILY@0800 #30 tab.chew Atorvastatin Calcium [Lipitor] 40 mg PO QHS #30 tablet Clopidogrel Bisulfate [Plavix] 75 mg PO DAILY #30 tablet Primary Care Physician: Lamont Myers MD [Primary Care Provider] - Please follow up with your Primary Care Physician in: 1 Week Test Results: Test results from this visit will be discussed in further detail at your follow-up appointment, if applicable. Please Follow Up With: Zander Ricardo MD When: 1-2 Weeks Please Follow Up With: Demario Rosa MD When: Patient would like to establish with [facility]. Please schedule. Proposed Discharge Date: 12/30/18
--- NOTE | 2018-12-30 17:03 | DCINST_ITS ---
- Discharge Diagnoses Current Active Problems: Current Active and Chronic Problems Hypothyroidism (Chronic) BPH (benign prostatic hyperplasia) (Chronic) GERD (gastroesophageal reflux disease) (Chronic) Depression (Chronic) Anxiety (Chronic) Status post placement of cardiac pacemaker (Chronic) TIA (transient ischemic attack) (Acute) You will use the following diet at home:: No restrictions Discharge Activity: May Not Drive - Until cleared by neurology Call your doctor if you observe: Shortness of breath, Dizziness, Fainting spells, Chest pain Allergies/Adverse Reactions: Allergies No Known Allergies Allergy (Verified 07/03/18 15:26) Medications to take at Discharge Alprazolam [Xanax] 0.5 mg PO Q12H PRN PRN 04/14/18 Esomeprazole Magnesium 40 mg PO DAILY 04/14/18 Levothyroxine [Synthroid] 88 mcg PO DAILY 04/14/18 Tamsulosin HCl [Flomax] 0.4 mg PO DAILY 04/14/18 Testosterone Cypionate [Depo-Testosterone] 100 mg IM QWEEK 04/14/18 Vortioxetine Hydrobromide [Trintellix] 20 mg PO DAILY 04/14/18 Amoxicillin [Amoxil] 500 mg PO TID 12/28/18 Nitroglycerin 0.4 mg SL X1 PRN 12/28/18 Ranitidine HCl [Acid Janitorial Services Supervisor] 150 mg PO DAILY 12/28/18 Aspirin [Aspirin, Baby] 81 mg PO DAILY@0800 #30 tab.chew 12/30/18 Atorvastatin Calcium [Lipitor] 40 mg PO QHS #30 tablet 12/30/18 Clopidogrel Bisulfate [Plavix] 75 mg PO DAILY #30 tablet 12/30/18 The following prescriptions were given: Aspirin [Aspirin, Baby] 81 mg PO DAILY@0800 #30 tab.chew Atorvastatin Calcium [Lipitor] 40 mg PO QHS #30 tablet Clopidogrel Bisulfate [Plavix] 75 mg PO DAILY #30 tablet Primary Care Physician: Lamont Myers MD [Primary Care Provider] - Please follow up with your Primary Care Physician in: 1 Week Test Results: Test results from this visit will be discussed in further detail at your follow- up appointment, if applicable. Please Follow Up With: Zander Ricardo MD When: 1-2 Weeks Please Follow Up With: Demario Rosa MD When: [facility] Please schedule. Proposed Discharge Date: 12/30/18
--- NOTE | 2018-12-30 17:04 | PCM.DC.SUM ---
<Talia New - Last Filed: 12/30/18 17:09> Discharge Date and Diagnosis - Problem List Patient Problems: Active and Suspected Problems TIA (transient ischemic attack) (Acute) Date of Admission: 12/28/18 Date of Discharge: 12/30/18 - Primary Discharge Diagnosis Active and Suspected Problems 1. Suspected TIA - Secondary Discharge Diagnosis Chronic Problems Hypothyroidism (Chronic) BPH (benign prostatic hyperplasia) (Chronic) GERD (gastroesophageal reflux disease) (Chronic) Depression (Chronic) Anxiety (Chronic) Status post placement of cardiac pacemaker (Chronic) Hospital Course and Treatment Imaging Results: Diagnostic Data Brain CT 12/28/18 16:34 IMPRESSION: No definite acute abnormality or change. Mild diffuse chronic white matter disease. This is stable. Electronically Signed: Reynaldo Singh MD at 16:58 EST , Service support , ADDENDUM: 12/28/18 1707 IMPRESSION: No definite acute abnormality or change. Mild diffuse chronic white matter disease. This is stable. N.B. : The above information has been verbally conveyed by Reynaldo Singh MD to Dr. Dominic MD, on 12/28/2018 17:00:55 (ET). Electronically Signed: Reynaldo Singh MD at 16:58 EST , Service support , Chest X-Ray 12/28/18 16:38 IMPRESSION: No acute findings. Electronically Signed: Santa López MD at 18:11 EST Tel , Service support , Head CTA 12/28/18 18:42 IMPRESSION: Normal [place] without a demonstrated aneurysm or significant stenosis. Electronically Signed: Santa López MD at 21:45 EST Tel , Service support , Neck CTA 12/28/18 18:42 IMPRESSION: Normal bilateral cervical carotid and vertebral arteries. Electronically Signed: Reynaldo Singh MD at 20:38 EST , Service support , Brain MRI 12/30/18 09:00 IMPRESSION: Atrophy and periventricular white matter ischemic changes. No evidence for acute infarct Electronically Signed: Chepe Omalley MD at 16:09 EST , Service support , Dr. Ricardo- Neurology Operations: None Procedures: 2-D Echocardiogram Summary of Care Provided: The patient is a 78 year old M admitted 12/28/18 due to speech difficulty. 1. Suspected TIA-Neurology consulted. Brain CT negative for acute process. CTA of head and neck without acute process or significant stenosis. Aspirin, statin, Plavix. Echocardiogram with EF 60%, stage 1 diastolic dysfunction, +PFO. MRI of brain showed no evidence of acute infarct. Acute CVA ruled out. Follow-up with primary care physician in 1 week. Follow-up with neurology in 1-2 weeks. 2. Elevated blood pressure without history of hypertension-Improved without intervention. 3. 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 Acquired hypothyroidism status post thyroidectomy-continue Synthroid regimen. 5. BPH-continue Flomax. Follows with Dr. Ravi. 6. TABATHA-states he wore CPAP for 20 years. Working on repeat sleep study to obtain a new CPAP. 7. GERD-continue PPI 8. Anxiety/Depression-continue home regimen. 9. 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 Alarcon, [facility]. Given upcoming [facility], patient would like to transfer to [facility]. 10. Mild cognitive impairment- further outpatient work-up per neurology. General: Alert, Oriented x3, Cooperative HEENT: Atraumatic, PERRLA, EOMI, Normocephalic Neck: Supple, No JVD, Negative Carotid Bruits Lungs: Clear to auscultation, Normal air movement Cardiovascular: Regular rate, Regular Rhythm, Normal S1, Normal S2, No murmurs Abdomen: Bowel Sounds Present, Soft, Non Tender Extremities: No clubbing, No cyanosis, No edema, Capillary Refill Less than 3 Seconds Skin: No rashes, No breakdown Musculoskeletal: No Tenderness to Palpation of Joints or Extremities Neurological: Cranial nerves II-XII grossly intact, Neuro grossly intact Psych/Mental Status: Normal Affect, Appropriate Patient seen and examined prior to discharge. Physical assessment as noted above. Patient is stable for discharge with follow up recommendations as noted above. This patient was seen by ZION Morales under the supervision of Dr. Marvin. Patient Problems: Active and Suspected Problems TIA (transient ischemic attack) (Acute) - Physical Exam Vital Signs Temp Pulse Resp BP Pulse Ox 98.5 F 56 L 16 126/59 H 94 12/30/18 16:30 12/30/18 16:30 12/30/18 16:30 12/30/18 16:30 12/30/18 16:30 Oxygen Flow Rate (L/min) 97 Oxygen Delivery Method Room Air Weight: 171 lb 15.369 oz Body Mass Index (BMI) 24.8 Finger Stick Blood Glucose 112 Intake and Output for Last 24 Hours 12/28/18 12/29/18 12/30/18 23:59 23:59 23:59 Intake Total 240 / 240 840 / 840 440 / 440 Balance 240 / 240 840 / 840 440 / 440 Laboratory Tests Past 24 Hrs 12/29/18 12/30/18 12/30/18 15:25 05:45 05:45 WBC 6.0 RBC 4.95 Hgb 14.2 Hct 41.7 MCV 84.2 MCH 28.7 MCHC 34.1 RDW 14.4 RDW Differential 43.3 Plt Count 272 MPV 10.1 Immature Gran % (Auto) 0.000 Neut % (Auto) 55.7 Lymph % (Auto) 29.9 [place] % (Auto) 10.1 H Eos % (Auto) 3.8 Baso % (Auto) 0.5 Absolute Neuts (auto) 3.4 Absolute Lymphs (auto) 1.80 Total Counted Not Reportable Sodium Potassium Chloride Carbon Dioxide Anion Gap BUN Creatinine Estim Creat Clear Calc Est GFR (MDRD) Af Amer Est GFR (MDRD) Non-Af BUN/Creatinine Ratio Glucose Calcium Vitamin B12 402 Urine Color Yellow Urine Clarity Clear Urine pH 6.0 Ur Specific [place] 1.025 Urine Protein 15 H Urine Glucose (UA) Normal Urine Ketones Negative Urine Occult Blood Negative Urine Nitrite Negative Urine Bilirubin Negative Urine Urobilinogen Normal Ur Leukocyte Esterase 25 H Urine RBC 0 SEEN Urine WBC 0 SEEN Ur Squamous Epith Cells 0 SEEN Urine Bacteria RARE Urine Mucus RARE 12/30/18 05:45 WBC RBC Hgb Hct MCV MCH MCHC RDW RDW Differential Plt Count MPV Immature Gran % (Auto) Neut % (Auto) Lymph % (Auto) [place] % (Auto) Eos % (Auto) Baso % (Auto) Absolute Neuts (auto) Absolute Lymphs (auto) Total Counted Sodium 139 Potassium 3.7 Chloride 105 Carbon Dioxide 23.0 Anion Gap 11 BUN 14 Creatinine 0.97 Estim Creat Clear Calc 66.90 Est GFR (MDRD) Af Amer 97 Est GFR (MDRD) Non-Af 80 BUN/Creatinine Ratio 14.5 Glucose 100 Calcium 8.8 Vitamin B12 Urine Color Urine Clarity Urine pH Ur Specific [place] Urine Protein Urine Glucose (UA) Urine Ketones Urine Occult Blood Urine Nitrite Urine Bilirubin Urine Urobilinogen Ur Leukocyte Esterase Urine RBC Urine WBC Ur Squamous Epith Cells Urine Bacteria Urine Mucus Discharge Diet: No Restrictions Discharge Activity: May Not Drive - Until cleared by neurology Call your doctor if you observe: Shortness of breath, Dizziness, Fainting spells, Chest pain Home Medications: Medications to take at Discharge Alprazolam [Xanax] 0.5 mg PO Q12H PRN PRN 04/14/18 Esomeprazole Magnesium 40 mg PO DAILY 04/14/18 Levothyroxine [Synthroid] 88 mcg PO DAILY 04/14/18 Tamsulosin HCl [Flomax] 0.4 mg PO DAILY 04/14/18 Testosterone Cypionate [Depo-Testosterone] 100 mg IM QWEEK 04/14/18 Vortioxetine Hydrobromide [Trintellix] 20 mg PO DAILY 04/14/18 Amoxicillin [Amoxil] 500 mg PO TID 12/28/18 Nitroglycerin 0.4 mg SL X1 PRN 12/28/18 Ranitidine HCl [Acid Disk Operator] 150 mg PO DAILY 12/28/18 Aspirin [Aspirin, Baby] 81 mg PO DAILY@0800 #30 tab.chew 12/30/18 Atorvastatin Calcium [Lipitor] 40 mg PO QHS #30 tablet 12/30/18 Clopidogrel Bisulfate [Plavix] 75 mg PO DAILY #30 tablet 12/30/18 Following Prescrptions Were Given to Patient: Aspirin [Aspirin, Baby] 81 mg PO DAILY@0800 #30 tab.chew Atorvastatin Calcium [Lipitor] 40 mg PO QHS #30 tablet Clopidogrel Bisulfate [Plavix] 75 mg PO DAILY #30 tablet Primary Care Physician: Lamont Myers MD [Primary Care Provider] - Please follow up with your Primary Care Physician in: 1 Week Please Follow Up With: Zander Ricardo MD When: 1-2 Weeks Please Follow Up With: Demario Rosa MD When: Patient would like to establish with [facility]. Please schedule. Disposition: Home Minutes spent on discharge:: 35 Patient Condition:: Stable Medical Necessity - Tobacco Use Smoking Status: Never smoker Meaningful Use Info Meaningful Use Diagnoses (Choose all that apply): None applicable <Jorge L Marvin - Last Filed: 12/30/18 17:28> Discharge Date and Diagnosis - Secondary Discharge Diagnosis Chronic Problems Hypothyroidism (Chronic) BPH (benign prostatic hyperplasia) (Chronic) GERD (gastroesophageal reflux disease) (Chronic) Depression (Chronic) Anxiety (Chronic) Status post placement of cardiac pacemaker (Chronic) Hospital Course and Treatment Imaging Results: 12/30/18 09:00 Brain without Contrast [MRI] Stat Operations: None Procedures: 2-D Echocardiogram Summary of Care Provided: Patient seen and examined independently. Data reviewed. I agree with the above note by the nurse practitioner. The patient is a 78 year old M presents with a aphasia. Patient is aphasia was receptive and primarily expressive a aphasia. Patient was evaluated and his workup was unremarkable. [place] to be related with TIA but the patient had similar, but less severe episodes. Patient will be on 20+ therapy as well as high intensity statin. He will follow-up with nephrology as outpatient for formal evaluation. [] - Physical Exam Vital Signs Temp Pulse Resp BP Pulse Ox 36.9 C 56 L 16 126/59 H 94 12/30/18 16:30 12/30/18 16:30 12/30/18 16:30 12/30/18 16:30 12/30/18 16:30 Oxygen Flow Rate (L/min) 97 Oxygen Delivery Method Room Air Weight: 78 kg Body Mass Index (BMI) 24.8 Finger Stick Blood Glucose 112 Intake and Output for Last 24 Hours 12/28/18 12/29/18 12/30/18 23:59 23:59 23:59 Intake Total 240 / 240 840 / 840 440 / 440 Balance 240 / 240 840 / 840 440 / 440 Laboratory Tests Past 24 Hrs 12/29/18 12/30/18 12/30/18 15:25 05:45 05:45 WBC 6.0 RBC 4.95 Hgb 14.2 Hct 41.7 MCV 84.2 MCH 28.7 MCHC 34.1 RDW 14.4 RDW Differential 43.3 Plt Count 272 MPV 10.1 Immature Gran % (Auto) 0.000 Neut % (Auto) 55.7 Lymph % (Auto) 29.9 [place] % (Auto) 10.1 H Eos % (Auto) 3.8 Baso % (Auto) 0.5 Absolute Neuts (auto) 3.4 Absolute Lymphs (auto) 1.80 Total Counted Not Reportable Sodium Potassium Chloride Carbon Dioxide Anion Gap BUN Creatinine Estim Creat Clear Calc Est GFR (MDRD) Af Amer Est GFR (MDRD) Non-Af BUN/Creatinine Ratio Glucose Calcium Vitamin B12 402 Urine Color Yellow Urine Clarity Clear Urine pH 6.0 Ur Specific [place] 1.025 Urine Protein 15 H Urine Glucose (UA) Normal Urine Ketones Negative Urine Occult Blood Negative Urine Nitrite Negative Urine Bilirubin Negative Urine Urobilinogen Normal Ur Leukocyte Esterase 25 H Urine RBC 0 SEEN Urine WBC 0 SEEN Ur Squamous Epith Cells 0 SEEN Urine Bacteria RARE Urine Mucus RARE 12/30/18 05:45 WBC RBC Hgb Hct MCV MCH MCHC RDW RDW Differential Plt Count MPV Immature Gran % (Auto) Neut % (Auto) Lymph % (Auto) [place] % (Auto) Eos % (Auto) Baso % (Auto) Absolute Neuts (auto) Absolute Lymphs (auto) Total Counted Sodium 139 Potassium 3.7 Chloride 105 Carbon Dioxide 23.0 Anion Gap 11 BUN 14 Creatinine 0.97 Estim Creat Clear Calc 66.90 Est GFR (MDRD) Af Amer 97 Est GFR (MDRD) Non-Af 80 BUN/Creatinine Ratio 14.5 Glucose 100 Calcium 8.8 Vitamin B12 Urine Color Urine Clarity Urine pH Ur Specific [place] Urine Protein Urine Glucose (UA) Urine Ketones Urine Occult Blood Urine Nitrite Urine Bilirubin Urine Urobilinogen Ur Leukocyte Esterase Urine RBC Urine WBC Ur Squamous Epith Cells Urine Bacteria Urine Mucus Discharge Diet: Low fat/ Low Cholesterol Discharge Activity: May Not Drive Call your doctor if you observe: Shortness of breath, Dizziness, Fainting spells, Chest pain Disposition: Home Minutes spent on discharge:: 35 Patient Condition:: Stable Medical Necessity - Tobacco Use Smoking Status: Never smoker Meaningful Use Info Meaningful Use Diagnoses (Choose all that apply): None applicable Code Visit Inpatient E&M: 61845 Disch Hosp
--- NOTE | 2018-12-30 17:09 | DS.PCM_ITS ---
<Talia New - Last Filed: 12/30/18 17:09> Discharge Date and Diagnosis - Problem List Patient Problems: Active and Suspected Problems TIA (transient ischemic attack) (Acute) Date of Admission: 12/28/18 Date of Discharge: 12/30/18 - Primary Discharge Diagnosis Active and Suspected Problems 1. Suspected TIA - Secondary Discharge Diagnosis Chronic Problems Hypothyroidism (Chronic) BPH (benign prostatic hyperplasia) (Chronic) GERD (gastroesophageal reflux disease) (Chronic) Depression (Chronic) Anxiety (Chronic) Status post placement of cardiac pacemaker (Chronic) Hospital Course and Treatment Imaging Results: Diagnostic Data Brain CT 12/28/18 16:34 IMPRESSION: No definite acute abnormality or change. Mild diffuse chronic white matter disease. This is stable. Electronically Signed: Reynaldo Singh MD at 16:58 EST , Service support , ADDENDUM: 12/28/18 1707 IMPRESSION: No definite acute abnormality or change. Mild diffuse chronic white matter disease. This is stable. N.B. : The above information has been verbally conveyed by Reynaldo Singh MD to Dr. Dominic MD, on 12/28/2018 17:00:55 (ET). Electronically Signed: Reynaldo Singh MD at 16:58 EST , Service support , Chest X-Ray 12/28/18 16:38 IMPRESSION: No acute findings. Electronically Signed: Santa López MD at 18:11 EST Tel , Service support , Head CTA 12/28/18 18:42 IMPRESSION: Normal ute of [place] without a demonstrated aneurysm or significant stenosis. Electronically Signed: Santa López MD at 21:45 EST Tel , Service support , Neck CTA 12/28/18 18:42 IMPRESSION: Normal bilateral cervical carotid and vertebral arteries. Electronically Signed: Reynaldo Singh MD at 20:38 EST , Service support , Brain MRI 12/30/18 09:00 IMPRESSION: Atrophy and periventricular white matter ischemic changes. No evidence for acute infarct Electronically Signed: Chepe Omalley MD at 16:09 EST , Service support , Dr. Ricardo- Neurology Operations: None Procedures: 2-D Echocardiogram Summary of Care Provided: The patient is a 78 year old M admitted 12/28/18 due to speech difficulty. 1. Suspected TIA-Neurology consulted. Brain CT negative for acute process. CTA of head and neck without acute process or significant stenosis. Aspirin, statin, Plavix. Echocardiogram with EF 60%, stage 1 diastolic dysfunction, +PFO. MRI of brain showed no evidence of acute infarct. Acute CVA ruled out. Follow-up with primary care physician in 1 week. Follow-up with neurology in 1- 2 weeks. 2. Elevated blood pressure without history of hypertension-Improved without intervention. 3. 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 Acquired hypothyroidism status post thyroidectomy-continue Synthroid regimen. 5. BPH-continue Flomax. Follows with Dr. Ravi. 6. TABATHA-states he wore CPAP for 20 years. Working on repeat sleep study to obtain a new CPAP. 7. GERD-continue PPI 8. Anxiety/Depression-continue home regimen. 9. 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 Alarcon, F cardiology. Given upcoming chcf, patient would like to transfer to [facility]. 10. Mild cognitive impairment- further outpatient work-up per neurology. General: Alert, Oriented x3, Cooperative HEENT: Atraumatic, PERRLA, EOMI, Normocephalic Neck: Supple, No JVD, Negative Carotid Bruits Lungs: Clear to auscultation, Normal air movement Cardiovascular: Regular rate, Regular Rhythm, Normal S1, Normal S2, No murmurs Abdomen: Bowel Sounds Present, Soft, Non Tender Extremities: No clubbing, No cyanosis, No edema, Capillary Refill Less than 3 Seconds Skin: No rashes, No breakdown Musculoskeletal: No Tenderness to Palpation of Joints or Extremities Neurological: Cranial nerves II-XII grossly intact, Neuro grossly intact Psych/Mental Status: Normal Affect, Appropriate Patient seen and examined prior to discharge. Physical assessment as noted above. Patient is stable for discharge with follow up recommendations as noted above. This patient was seen by ZION Morales under the supervision of Dr. Marvin. Patient Problems: Active and Suspected Problems TIA (transient ischemic attack) (Acute) - Physical Exam Vital Signs Temp Pulse Resp BP Pulse Ox 98.5 F 56 L 16 126/59 H 94 12/30/18 16:30 12/30/18 16:30 12/30/18 16:30 12/30/18 16:30 12/30/18 16:30 Oxygen Flow Rate (L/min) 97 Oxygen Delivery Method Room Air Weight: 171 lb 15.369 oz Body Mass Index (BMI) 24.8 Finger Stick Blood Glucose 112 Intake and Output for Last 24 Hours 12/28/18 12/29/18 12/30/18 23:59 23:59 23:59 Intake Total 240 / 240 840 / 840 440 / 440 Balance 240 / 240 840 / 840 440 / 440 Laboratory Tests Past 24 Hrs 12/29/18 12/30/18 12/30/18 15:25 05:45 05:45 WBC 6.0 RBC 4.95 Hgb 14.2 Hct 41.7 MCV 84.2 MCH 28.7 MCHC 34.1 RDW 14.4 RDW Differential 43.3 Plt Count 272 MPV 10.1 Immature Gran % (Auto) 0.000 Neut % (Auto) 55.7 Lymph % (Auto) 29.9 [place] % (Auto) 10.1 H Eos % (Auto) 3.8 Baso % (Auto) 0.5 Absolute Neuts (auto) 3.4 Absolute Lymphs (auto) 1.80 Total Counted Not Reportable Sodium Potassium Chloride Carbon Dioxide Anion Gap BUN Creatinine Estim Creat Clear Calc Est GFR (MDRD) Af Amer Est GFR (MDRD) Non-Af BUN/Creatinine Ratio Glucose Calcium Vitamin B12 402 Urine Color Yellow Urine Clarity Clear Urine pH 6.0 Ur Specific [place] 1.025 Urine Protein 15 H Urine Glucose (UA) Normal Urine Ketones Negative Urine Occult Blood Negative Urine Nitrite Negative Urine Bilirubin Negative Urine Urobilinogen Normal Ur Leukocyte Esterase 25 H Urine RBC 0 SEEN Urine WBC 0 SEEN Ur Squamous Epith Cells 0 SEEN Urine Bacteria RARE Urine Mucus RARE 12/30/18 05:45 WBC RBC Hgb Hct MCV MCH MCHC RDW RDW Differential Plt Count MPV Immature Gran % (Auto) Neut % (Auto) Lymph % (Auto) [place] % (Auto) Eos % (Auto) Baso % (Auto) Absolute Neuts (auto) Absolute Lymphs (auto) Total Counted Sodium 139 Potassium 3.7 Chloride 105 Carbon Dioxide 23.0 Anion Gap 11 BUN 14 Creatinine 0.97 Estim Creat Clear Calc 66.90 Est GFR (MDRD) Af Amer 97 Est GFR (MDRD) Non-Af 80 BUN/Creatinine Ratio 14.5 Glucose 100 Calcium 8.8 Vitamin B12 Urine Color Urine Clarity Urine pH Ur Specific [place] Urine Protein Urine Glucose (UA) Urine Ketones Urine Occult Blood Urine Nitrite Urine Bilirubin Urine Urobilinogen Ur Leukocyte Esterase Urine RBC Urine WBC Ur Squamous Epith Cells Urine Bacteria Urine Mucus Discharge Diet: No Restrictions Discharge Activity: May Not Drive - Until cleared by neurology Call your doctor if you observe: Shortness of breath, Dizziness, Fainting spells, Chest pain Home Medications: Medications to take at Discharge Alprazolam [Xanax] 0.5 mg PO Q12H PRN PRN 04/14/18 Esomeprazole Magnesium 40 mg PO DAILY 04/14/18 Levothyroxine [Synthroid] 88 mcg PO DAILY 04/14/18 Tamsulosin HCl [Flomax] 0.4 mg PO DAILY 04/14/18 Testosterone Cypionate [Depo-Testosterone] 100 mg IM QWEEK 04/14/18 Vortioxetine Hydrobromide [Trintellix] 20 mg PO DAILY 04/14/18 Amoxicillin [Amoxil] 500 mg PO TID 12/28/18 Nitroglycerin 0.4 mg SL X1 PRN 12/28/18 Ranitidine HCl [Acid Fundraising Specialist] 150 mg PO DAILY 12/28/18 Aspirin [Aspirin, Baby] 81 mg PO DAILY@0800 #30 tab.chew 12/30/18 Atorvastatin Calcium [Lipitor] 40 mg PO QHS #30 tablet 12/30/18 Clopidogrel Bisulfate [Plavix] 75 mg PO DAILY #30 tablet 12/30/18 Following Prescrptions Were Given to Patient: Aspirin [Aspirin, Baby] 81 mg PO DAILY@0800 #30 tab.chew Atorvastatin Calcium [Lipitor] 40 mg PO QHS #30 tablet Clopidogrel Bisulfate [Plavix] 75 mg PO DAILY #30 tablet Primary Care Physician: Lamont Myers MD [Primary Care Provider] - Please follow up with your Primary Care Physician in: 1 Week Please Follow Up With: Zander Ricardo MD When: 1-2 Weeks Please Follow Up With: Demario Rosa MD When: Patient would like to establish with [facility]. Please schedule. Disposition: Home Minutes spent on discharge:: 35 Patient Condition:: Stable Medical Necessity - Tobacco Use Smoking Status: Never smoker Meaningful Use Info Meaningful Use Diagnoses (Choose all that apply): None applicable <Jorge L Marvin - Last Filed: 12/30/18 17:28> Discharge Date and Diagnosis - Secondary Discharge Diagnosis Chronic Problems Hypothyroidism (Chronic) BPH (benign prostatic hyperplasia) (Chronic) GERD (gastroesophageal reflux disease) (Chronic) Depression (Chronic) Anxiety (Chronic) Status post placement of cardiac pacemaker (Chronic) Hospital Course and Treatment Imaging Results: 12/30/18 09:00 Brain without Contrast [MRI] Stat Operations: None Procedures: 2-D Echocardiogram Summary of Care Provided: Patient seen and examined independently. Data reviewed. I agree with the above note by the nurse practitioner. The patient is a 78 year old M presents with a aphasia. Patient is aphasia was receptive and primarily expressive a aphasia. Patient was evaluated and his workup was unremarkable. [place] to be related with TIA but the patient had similar, but less severe episodes. Patient will be on 20+ therapy as well as high intensity statin. He will follow-up with nephrology as outpatient for formal evaluation. [] - Physical Exam Vital Signs Temp Pulse Resp BP Pulse Ox 36.9 C 56 L 16 126/59 H 94 12/30/18 16:30 12/30/18 16:30 12/30/18 16:30 12/30/18 16:30 12/30/18 16:30 Oxygen Flow Rate (L/min) 97 Oxygen Delivery Method Room Air Weight: 78 kg Body Mass Index (BMI) 24.8 Finger Stick Blood Glucose 112 Intake and Output for Last 24 Hours 12/28/18 12/29/18 12/30/18 23:59 23:59 23:59 Intake Total 240 / 240 840 / 840 440 / 440 Balance 240 / 240 840 / 840 440 / 440 Laboratory Tests Past 24 Hrs 12/29/18 12/30/18 12/30/18 15:25 05:45 05:45 WBC 6.0 RBC 4.95 Hgb 14.2 Hct 41.7 MCV 84.2 MCH 28.7 MCHC 34.1 RDW 14.4 RDW Differential 43.3 Plt Count 272 MPV 10.1 Immature Gran % (Auto) 0.000 Neut % (Auto) 55.7 Lymph % (Auto) 29.9 [place] % (Auto) 10.1 H Eos % (Auto) 3.8 Baso % (Auto) 0.5 Absolute Neuts (auto) 3.4 Absolute Lymphs (auto) 1.80 Total Counted Not Reportable Sodium Potassium Chloride Carbon Dioxide Anion Gap BUN Creatinine Estim Creat Clear Calc Est GFR (MDRD) Af Amer Est GFR (MDRD) Non-Af BUN/Creatinine Ratio Glucose Calcium Vitamin B12 402 Urine Color Yellow Urine Clarity Clear Urine pH 6.0 Ur Specific [place] 1.025 Urine Protein 15 H Urine Glucose (UA) Normal Urine Ketones Negative Urine Occult Blood Negative Urine Nitrite Negative Urine Bilirubin Negative Urine Urobilinogen Normal Ur Leukocyte Esterase 25 H Urine RBC 0 SEEN Urine WBC 0 SEEN Ur Squamous Epith Cells 0 SEEN Urine Bacteria RARE Urine Mucus RARE 12/30/18 05:45 WBC RBC Hgb Hct MCV MCH MCHC RDW RDW Differential Plt Count MPV Immature Gran % (Auto) Neut % (Auto) Lymph % (Auto) [place] % (Auto) Eos % (Auto) Baso % (Auto) Absolute Neuts (auto) Absolute Lymphs (auto) Total Counted Sodium 139 Potassium 3.7 Chloride 105 Carbon Dioxide 23.0 Anion Gap 11 BUN 14 Creatinine 0.97 Estim Creat Clear Calc 66.90 Est GFR (MDRD) Af Amer 97 Est GFR (MDRD) Non-Af 80 BUN/Creatinine Ratio 14.5 Glucose 100 Calcium 8.8 Vitamin B12 Urine Color Urine Clarity Urine pH Ur Specific [place] Urine Protein Urine Glucose (UA) Urine Ketones Urine Occult Blood Urine Nitrite Urine Bilirubin Urine Urobilinogen Ur Leukocyte Esterase Urine RBC Urine WBC Ur Squamous Epith Cells Urine Bacteria Urine Mucus Discharge Diet: Low fat/ Low Cholesterol Discharge Activity: May Not Drive Call your doctor if you observe: Shortness of breath, Dizziness, Fainting spells, Chest pain Disposition: Home Minutes spent on discharge:: 35 Patient Condition:: Stable Medical Necessity - Tobacco Use Smoking Status: Never smoker Meaningful Use Info Meaningful Use Diagnoses (Choose all that apply): None applicable Code Visit Inpatient E&M: 20257 Disch Hosp
== END 2018-12-30 17:59 | disposition home or self-care (01) | DRG 69 ==
LOC: ED 17:37 → PCU 18:06
PROVIDERS: Family Medicine; Psychiatry & Neurology Neurology; Admitting Provider Internal Medicine; Emergency Provider Emergency Medicine; Family Provider Family Medicine; PCP Family Medicine
DX: G45.9 Transient cerebral ischemic attack, unspecified (principal); R47.01 Aphasia; K21.9 Gastro-esophageal reflux disease without esophagitis; G47.33 Obstructive sleep apnea (adult) (pediatric); N40.0 Benign prostatic hyperplasia without lower urinary tract symptoms; E89.0 Postprocedural hypothyroidism; B91 Sequelae of poliomyelitis; R53.1 Weakness; Z95.0 Presence of cardiac pacemaker; F41.9 Anxiety disorder, unspecified; F32.9 Major depressive disorder, single episode, unspecified; G31.84 Mild cognitive impairment of uncertain or unknown etiology; R03.0 Elevated blood-pressure reading, without diagnosis of hypertension
CPT/HCPCS: 36415; 70450; 70496; 70498; 70551; 71045; 80048; 80061; 81001; 82607; 82962; 83036; 84443; 84484; 85025; 85610; 85652; 85730; 92523; 93005; 93306; 97161; 97165; 97530; 99283; Q9967; A4216

== ENCOUNTER 2019-02-20 10:30 | Outpatient (RCR) | payer MEDICARE, OTHER, SELFPAY ==
[2018-12-30 13:35] VITALS: BMI 24.8
[2019-01-08 12:53] VITALS: BMI 25.9
--- NOTE | 2019-01-09 13:43 | HP.PTEVAL ---
Patient's Visit Information CARLENE IRWIN is a 78 year old M referred to Physical Therapy by ZION Morales with a diagnosis of TIA. Date of Evaluation: 01/09/19 Physical Therapist: Jorge L Velasco DPT, OCS, CSCS - Visit Plan Frequency: 3x /Week Duration: 4-6 Weeks Plan: Has pacemaker... 3x/week for 3-6 weeks... 1. ankle strength focussing on forward weight shift adn stretch gastroc. 2. stretch quads and hip flexors. 3. gym based machine strength for posture and LE and progress to I. - Subjective Findings: Was in for balance before and it helped but got worse again. Recent other health problems with Bipap and pacemaker made sedentary and now is worse. Had a TIA last week. balance is the main deficit adn not sure it is due to TIA. Balance has gotten worse over the last 3-4 weeks for no apparent reason. Was running into things and banging elbows which continues. Not currently dizzy but was for a few weeks and described as lightheaded. No spinning. Typically with walking at park or up stairs. Not happened in a few weeks. No idea the cause. Pace maker is now fixed to kicking in at a lower level. TIA changed meds last week but not prior to dizzyness/balance setting in. Basic aDLS are OK, but doesn't need to do a lot. He sleeps a helluva lot. No regular exercises. Not working outside of home. Very sedentary in winter. Fills day with sleep, TV, computer. - Objective Walks well and transfers easily. Steps are reciprocal with one rail descending for safety, ascending no rail needed. Poor FW weight shift with balance. Sensation In LE WNL to gross light touch. reflexes 2/3 patella and achilles. Strength LE: hips 4-, knees 4- adn ankles 3+. coordination to LE reciprocal tapping minor deficits. Slow to shift weight forward on foam stance, slow to detect adn hard to shift. - Balance Scores Functional Gait Assessment Score: 25 % Disability: 16.6700 CATSIB Score (Max score 120 seconds): 98 - Goals Goal 1:: FGA too diminish fall risk Goal Time Frame: 4-6 Weeks Goal 2:: Patient feel like he is 100% back to baseline balance and strength. Goal Time Frame: 4-6 Weeks Goal 3:: I approp Gym based ex program to minimize future problems Goal Time Frame: 4-6 Weeks Goal 4:: Patient not sleep more than 8 hours per day Goal Time Frame: 4-6 Weeks - Rehabilitation Potential Physical Therapy Diagnosis: Weakness from sedentarism casuing balance to worsen. Rehabilitation Potential: Fair - Anticipated Interventions Patient/Client Instruction: Educate patient on: Condition, Plan of Care For the Purpose of:: To improve muscle performance and motor function, To improve gait and locomotor functions Therapeutic Exercise to Include: Strength training, Balance training, Flexibilty training, Gait and locomotor training For the Purpose of:: To improve muscle performance and motor function, To improve ability to perform ADL's, To improve ability of physical actions for home/community/work/leisure Thank you for the opportunity to evaluate your patient. For Medicare and Medicare HMO plans, please review the plan of care and approve it. It will need to be FAXED BACK to us at [phone] for Medicare purposes. For Medicare only, by signing this I certify the plan of care. Please let me know if there are questions or concerns regarding this plan of care. Physician Signature: Date:
--- NOTE | 2019-01-31 14:54 | HP.PTREVAL ---
Talia New, CROW-C, It has been my pleasure to treat CARLENE IRWIN over the last 7 visits for TIA. Please see the progress note below for an update on the physical therapy plan of care! Subjective: Making progress. Still get sore after exercises which he likes. Knees wobbly after workout. Feels stronger outside of therapy getting up from chair and moving at home. Still veers at times. Has walked into wall a couple times. Still bored as hell. Objective/Function: Much improved balance and strength with trasnfers out of chair without UE adn steps without rail(slight unsteady descending.). Improving well. Plan Plan: 2x/week for 2-3 weeks, please gain I with gym ex log adn increase balance work with outdoor adn head moving ambulation, steps without support and SLS Goals Goal 1:: FGA too diminish fall risk Goal Time Frame: 4-6 Weeks Goal Progress: Goal Met Goal 2:: Patient feel like he is 100% back to baseline balance and strength. Goal Time Frame: 4-6 Weeks Goal Progress: Progressing Goal 3:: I approp Gym based ex program to minimize future problems Goal Time Frame: 4-6 Weeks Goal Progress: Progressing Goal 4:: Patient not sleep more than 8 hours per day Goal Time Frame: 4-6 Weeks Goal Progress: bored. Anticipated Interventions Patient/Client Instruction: Educate patient on: Condition, Plan of Care For the Purpose of:: To improve muscle performance and motor function, To improve gait and locomotor functions Therapeutic Exercise to Include: Strength training, Balance training, Flexibilty training, Gait and locomotor training For the Purpose of:: To improve muscle performance and motor function, To improve ability to perform ADL's, To improve ability of physical actions for home/community/work/leisure Please do not hesitate to contact me at [phone] by phone or if you have questions or concerns regarding this new plan of care! Sincerely, Jorge L Velasco, DPT, OCS, CSCS
--- NOTE | 2019-02-20 11:07 | HP.PTDCSUM ---
HP - PT D/C Summary It has been my pleasure to treat CARLENE IRWIN under orders from Lamont Myers MD, for the diagnosis of TIA for a total of 11 visit(s). Discharge Date: 02/20/19 Please see the following information for a summary of their discharge status. - Subjective Subjective: Dizzyness was just one day and now is gone. Has SPARROW today which he gets periodically. Balance feels better. Gained strength. If it wasn't SPARROW would be doing well. This is normal SPARROW that he gets a couple times per month. Taking BP meds regularly. Will contact doctor regarding high blood pressure later today. - Overall Improvement % Improvement: 80 - Objective Objective/Function: 185/87 BP today taken by mill and coal transport operator previous to PT recheck. Walking well, feeling good other than SPARROW. Transfers without hands easily, steps without UE. Pt in no acute distress and talking ,laughing normally. Highly recommended he contact his doctor regarding SPARROW and high blood pressure and go to ER if feels other symptoms. He is agreeable and did not want squad called today. OVERALL DOING VERY WELL FUNCTIONALLY - Goals Goal 1:: FGA too diminish fall risk Goal Progress: Goal Met Goal 2:: Patient feel like he is 100% back to baseline balance and strength. Goal Progress: Progressing Goal 3:: I approp Gym based ex program to minimize future problems Goal Progress: Progressing Goal 4:: Patient not sleep more than 8 hours per day Goal Progress: gets lots - Plan Plan: D/C. Pt doing well with mobility adn willc ontact doctor regarding recent symptoms of SPARROW and higher blood pressure today. - D/C Information Discharge Comments: Will continue via gym exercises. Copy given today. Recommended patient call doctor regarding elevated blood pressure which he is agreeable to doing. If there are questions or concerns regarding this patient's physical therapy, please feel free to call me at [phone]. Thank you for the referral of this patient. Sincerely, Jorge L Velasco, DPT, OCS, CSCS
--- NOTE | 2019-02-20 11:40 | HP.PTDCSUM_ITS ---
HP - PT D/C Summary It has been my pleasure to treat CARLENE IRWIN under orders from Lamont Myers MD, for the diagnosis of TIA for a total of 11 visit(s). Discharge Date: 02/20/19 Please see the following information for a summary of their discharge status. - Subjective Subjective: Dizzyness was just one day and now is gone. Has SPARROW today which he gets periodically. Balance feels better. Gained strength. If it wasn't SPARROW would be doing well. This is normal SPARROW that he gets a couple times per month. Taking BP meds regularly. Will contact doctor regarding high blood pressure later today. - Pain SPARROW Pain Intensity (Out of 10): 8 - Overall Improvement % Improvement: 80 - Objective Objective/Function: 185/87 BP today taken by laundry operator wash room previous to PT recheck. Walk ing well, feeling good other than SPARROW. Transfers without hands easily, steps without UE. Pt in no acute distress and talking ,laughing normally. Highly recommended he contact his doctor regarding SPARROW and high blood pressure and go to ER if feels other symptoms. He is agreeable and did not want squad called today. OVERALL DOING VERY WELL FUNCTIONALLY - Goals Goal 1:: FGA too diminish fall risk Goal Progress: Goal Met Goal 2:: Patient feel like he is 100% back to baseline balance and strength. Goal Progress: Progressing Goal 3:: I approp Gym based ex program to minimize future problems Goal Progress: Progressing Goal 4:: Patient not sleep more than 8 hours per day Goal Progress: gets lots - Plan Plan: D/C. Pt doing well with mobility adn willc ontact doctor regarding recent symptoms of SPARROW and higher blood pressure today. - D/C Information Discharge Comments: Will continue via gym exercises. Copy given today. Recommended patient call doctor regarding elevated blood pressure which he is agreeable to doing. If there are questions or concerns regarding this patient's physical therapy, please feel free to call me at [phone]. Thank you for the referral of this patient. Sincerely, Jorge L Velasco, DPT, OCS, CSCS
== END 2019-02-20 19:00 | disposition home or self-care (01) ==
LOC: PT 10:30
PROVIDERS: Family Provider Family Medicine; PCP Family Medicine; Visit Provider Family Medicine
DX: Z86.73 Personal history of transient ischemic attack (TIA), and cerebral infarction without residual deficits (principal)
CPT/HCPCS: 97110; 97162; 97530

== ENCOUNTER → 2019-12-04 13:17 | Outpatient (CLI) | payer MEDICARE, OTHER, SELFPAY ==
[2019-08-26 08:58] VITALS: BMI 27.7
[2019-12-04 14:56] LABS: PSA,Total- Diagnostic 3.95 ng/mL (0.0-4.0)
== END ==
PROVIDERS: Family Provider Family Medicine; PCP Family Medicine; Referring Provider Urology; Visit Provider Urology
DX: R97.20 Elevated prostate specific antigen [PSA] (principal)
CPT/HCPCS: 36415; 84153

== ENCOUNTER → 2020-07-28 12:42 | Outpatient (CLI) | payer MEDICARE, OTHER, SELFPAY ==
[2020-05-04 13:12] VITALS: BMI 26.7
--- NOTE | 2020-07-28 12:43 | ECHOD_ITS ---
Reason For Study: MURMUR Procedure This was a 2D Doppler, Color Flow transthoracic echocardiogram. Exam performed in department. Left Ventricle Normal LV size. Left ventricular systolic function is normal. The estimated ejection fraction is 65 %. Stage 1 diastolic dysfunction. No regional wall motion abnormalities noted. Right Ventricle Normal RV size. ICD or pacer leads identified within the right ventricle. Normal systolic function. Atria Normal left atrium. Normal right atrium. Mitral Valve Normal mitral valve. Tricuspid Valve Normal tricuspid valve. Mild (1+) tricuspid valve insufficiency. Pulmonary artery systolic pressure is 38 mmHg. Aortic Valve Trisinus/trileaflet aortic valve. Mild (1+) eccentric aortic valve insufficiency. Pulmonic Valve The pulmonic valve is not well visualized. Great Vessels Normal aortic root. The pulmonary artery is normal size. Normal inferior vena cava. Pericardium/Pleural No pericardial effusion. MMode/2D Measurements & Calculations LVIDd: 4.2 cm IVSd: 1.1 cm Ao root diam: 3.2 cm LVIDs: 3.0 cm LVPWd: 1.0 cm RVDd: 3.7 cm FS: 28.0 % LAV(MOD-bp): 45.6 ml LVAd ap4: 36.2 cm2 SV(MOD-sp4): 74.1 ml LAV(MOD-bp) Indexed: 22.3 ml/m2 EDV(MOD-sp4): 120.0 ml LAV(MOD-sp2): 55.2 ml EDV(sp4-el): 125.5 ml LAV(MOD-sp4): 36.0 ml LVAs ap4: 20.7 cm2 ESV(MOD-sp4): 45.9 ml ESV(sp4-el): 47.0 ml EF(MOD-sp4): 61.8 % EF(sp4-el): 62.5 % SV(sp4-el): 78.5 ml LA A4 area: 15.3 cm2 LA dimension(2D): 3.4 cm RA A4 area: 12.0 cm2 Time Measurements MV dec time: 0.35 sec Doppler Measurements & Calculations MV E max jose: 64.2 cm/sec Lat Peak E' Jose: 7.0 cm/sec Med Peak E' Jose: 6.2 cm/sec MV A max jose: 94.4 cm/sec E/E' lat: 9.2 E/E' med: 10.3 MV E/A: 0.68 Ao V2 max: 166.8 cm/sec AI max jose: 498.7 cm/sec LV V1 max: 124.1 cm/sec Ao max P.1 mmHg AI max P.5 mmHg LV V1 max P.2 mmHg AI dec slope: 426.0 cm/sec2 AI P1/2t: 342.9 msec PA V2 max: 94.8 cm/sec TR max jose: 290.9 cm/sec TR max P.9 mmHg Interpretation Summary Normal RV size. Normal LV size. Left ventricular systolic function is normal. The estimated ejection fraction is 65 %. Stage 1 diastolic dysfunction. ICD or pacer leads identified within the right ventricle. Ordering Physician: Ti Hoffman Referring Physician: RADHA READ Performed By: Kimberlee Varela RDCS
[2020-07-28 14:01] LABS: Anion Gap 3 (5-15); BUN 11 mg/dL (7-18); BUN/Creat Ratio 9.3 RATIO (10-20); Chloride 108 mmol/L (98-107); Creatinine, Serum 1.18 mg/dL (0.70-1.30); EST Glomerular Filtration Rate 63 mL/min (>60); Est Glom Filt Rate - Afr Amer 77 mL/min (>60); Glucose 116 mg/dL (74-106); Potassium 3.9 mmol/L (3.5-5.1); Sodium Level 141 mmol/L (136-145)
[2020-07-28 14:03] LABS: BNP,B-Type NATRIURETIC PEPTIDE 81.7 pg/mL (0-100)
== END ==
PROVIDERS: PCP Family Medicine; Referring Provider Internal Medicine Cardiovascular Disease; Visit Provider Internal Medicine Cardiovascular Disease
DX: I35.1 Nonrheumatic aortic (valve) insufficiency (principal); R01.1 Cardiac murmur, unspecified
CPT/HCPCS: 36415; 80048; 83880; 93306

== ENCOUNTER 2020-09-04 11:58 | Emergency (ER) | payer MEDICARE, OTHER, SELFPAY ==
[2020-05-04 13:12] VITALS: BMI 26.7
[2020-09-04 11:59] VITALS: BP 142/85; PULSE 81; RESP 18; TEMP 36.3; O2SAT 93; BMI 27.3
--- NOTE | 2020-09-04 12:16 | EKG12_ITS ---
Test Reason : Blood Pressure : / mmHG Vent. Rate : 065 BPM Atrial Rate : 065 BPM P-R Int : 194 ms QRS Dur : 096 ms QT Int : 380 ms P-R-T Axes : 059 018 032 degrees QTc Int : 395 ms Normal sinus rhythm Moderate voltage criteria for LVH, may be normal variant Nonspecific ST abnormality Abnormal ECG Confirmed by ALLAN STARKS, ELIZABETH ([id number]), editor magazine DARWIN BRICENO ([id number]) on 09/07/2020 12:31:39 PM Referred By: ALEJANDRO Confirmed By:ELIZABETH LEMUS MD
--- NOTE | 2020-09-04 12:16 | RAD_ITS ---
STUDY: X-RAY CHEST REASON FOR EXAM: Male, 80 years old. CP? NEURO? TECHNIQUE: Frontal view of the chest COMPARISON: December 28 2018 FINDINGS: Inspiratory volumes are low. There is no pneumothorax. There is possibly minimal pulmonary edema versus technical artifact. The heart is moderately enlarged. Cardiac device is present in the left upper chest with intact leads terminating in the right atrium and right ventricle. Osseous structures are intact with degenerative changes in the right shoulder and cervical ACDF. There is no gas under the diaphragms. RAD/Chest 1 View (Portable) IMPRESSION: Low inspiratory volumes, possibly mild pulmonary edema. Moderate cardiomegaly. Electronically Signed: Eliana Guzman, at 14:16 EDT Tel , Service support ,
--- NOTE | 2020-09-04 12:17 | CT_ITS ---
STUDY: CT BRAIN WITHOUT CONTRAST REASON FOR EXAM: Male, 80 years old. Confusion TIA hypertension pacemaker RADIATION DOSAGE (If Supplied By Facility): CTDIvol = ( 44.99 ) mGy, DLP = ( 846.73 ) mGycm TECHNIQUE: Transaxial CT imaging of the brain was performed without administration of intravenous contrast material. Individualized dose optimization techniques were used for this CT. COMPARISON: Every 2018 FINDINGS: Brain parenchyma is without focal lesions, mass effect, acute intracranial hemorrhage, extra parenchymal fluid collections, hydrocephalus or herniation. There are dilated perivascular spaces in the right cerebral peduncle, visualized as ill-defined hypodensity, corresponding to prior MR image. The skull is intact. CT/Brain/Head without Contrast IMPRESSION: 1. No acute findings. 2. Stable exam. Electronically Signed: Eliana Guzman, at 13:52 EDT Tel , Service support ,
--- NOTE | 2020-09-04 12:18 | ED.VIS.GEN ---
History of Present Illness Chief Complaint: Neuro S/Sx Informant: Patient, Family Onset: Days Maximum Severity: Mild Narrative: Patient presents with son who reports that for the last few days the father has had intermittent sense of confusion. His health is been very good but recently he developed an infection involving his right lower tooth he was really started on amoxicillin and [place] the tooth condition and the pain is improved there are times where he just seems to be confused seeing people in the house were not there. He has had no fever no cough no chest or abdominal pain no numbness weakness paresthesias he is able to execute all of his daily activities he has had poor p.o. intake because of the tooth given all the above he was brought in for evaluation Patient believes at one time he may have had a TIA,, history of cardiac pacemaker all of his general health conditions have been stable, he is awake and alert x3 moving all 4 extremities he has no complaints as he is placed in the bed he is no longer confused Past Medical History - Allergies and Home Meds Allergies/Adverse Reactions: Allergies No Known Allergies Allergy (Verified 09/04/20 11:59) Primary Care Physician: Momo Ureña MD [Primary Care Provider] - Past Medical History: - - Includes as above Surgical History: - - Bilateral cataract surgery, cervical spine fusion, thyroidectomy, sinus surgery, pacemaker. Smoking Status: Never smoker - Family History Maternal Family History: Family History (Last Reviewed 05/04/20 @ 14:[address] Ti Hoffman MD) Father Heart disease Brother Heart disease Mother Heart disease Family History: Reports: - - MVA Paternal Family History: Family History (Last Reviewed 05/04/20 @ 14:[address] Ti Hoffman MD) Father Heart disease Brother Heart disease Mother Heart disease Family History: Reports: - - COPD Review of Systems General: Denies: Chills, Fever, Sweats Eyes: Denies: Visual changes - bilaterally, Diplopia ENT: Denies: Rhinorrhea, Sore throat Cardiovascular: Denies: Chest pain, Palpitations Respiratory: Denies: Dyspnea, Cough, Dyspnea on exertion Gastrointestinal: Denies: Abdominal pain, Nausea, Vomiting, Diarrhea, Melena, Hematochezia Genitourinary: Denies: Dysuria, Hematuria, Frequency Musculoskeletal: Denies: Back pain, Extremity Pain Skin: Denies: Rash, Wounds Neurological: Reports: - - Transient confusion. Denies: Headache, Weakness, Numbness Physical Exam Vital Signs/Narrative: Vital Signs Temp Pulse Resp BP Pulse Ox 09/04/20 11:59 97.4 F L 81 18 142/85 H 93 General: Well nourished, Well developed, No Acute Distress Head: Normocephalic, Atraumatic Eyes: Perrl, EOMI ENT: Moist mucous membranes, No rhinorrhea Neck: Supple, Nontender Cardiovascular: Regular rate, Regular rhythm, No murmurs Respiratory: No distress, CTA bilaterally, Chest nontender Abdomen: Soft, Nontender, Nondistended, Normal bowel sounds Back: Nontender, Normal Inspection Extremities: Nontender, No edema Skin: Normal color, No rash Neurological: Alert, Oriented x3, Cranial nerves II-XII grossly intact, Normal Strength, Normal Sensation Psychological: Normal affect, Normal Mood Diagnostic/Tx/Re-eval - Medical Decision Making His vital signs are all unremarkable he is awake and alert he is oriented x3 to himself his son the president the [facility], he is able to stand and walk without difficulty, his NIH is 0 with no findings on physical exam he assures me there is nothing bothering him now. His HEENT oral cavity exam shows some decaying teeth but nothing acute his airways intact the neck is supple, he does indicate he is had poor p.o. intake because of the tooth, the family stopped the H[place] the other day concern that was causing the transient confusion The patient per the son has had no exposures to coronavirus he does not leave the house when he does he wears an and 95 mask they are not concerned for coronavirus and really do not want him tested Patient's EKG shows a sinus rhythm rate of 65 no acute injury Given the above ED screening evaluation IV fluids ED screening evaluation with labs chest x-ray are generally unremarkable see those reports Reevaluation he remains awake and alert x3 has no complaints no confusional episodes during observation, his MRI scan that he had about a year ago showed no signs of stroke or TIA discussed differential with the patient his son discussed inpatient versus outpatient management they are comfortable discharge home as he is feeling better with just IV fluids he will continue his antibiotics will not use Houghton unless at bedtime and follow-up with his outpatient providers for further management Home stable Final impression transient confusion ED Disposition - Plan for ED Patient: Diagnosis: Transient confusion Instructions: ED Confusion Referrals: Momo Ureña MD [Primary Care Provider] -
[2020-09-04] MEDS: 0.9% Normal Saline 1,000 ML 1000 ML IV (12:55)
--- NOTE | 2020-09-04 13:01 | NURSING ---
pt reports all over weakness and hallucinations - seeing people and having conversations with them on and off since .
[2020-09-04 13:03] LABS: Absolute Lymphocyte Count 1.21 X10^3/uL (0.83-4.51); Absolute Neutrophil Count 4.3 X10^3/uL (2.0-7.7); Basophil# 0.03 X10^3/uL; Basophil% 0.5 % (0-1); Eosinophil# 0.17 X10^3/uL; Eosinophils% 2.6 % (0-5); Hematocrit 44.7 % (40-54); Lymphocyte # 1.21 X10^3/ul (4.0); Lymphocyte % 18.8 % (19-41); Mean Corp Hgb Conc 31.3 g/dL (32-36); Mean Corpuscular Volume 86.3 fL (80-94); Mean Platelet Vol. 9.7 fl (6.2-12.0); Monocyte# 0.66 X10^3/uL; Monocyte% 10.3 % (0-10); NRBC Flagged by Analyzer 0 % (0-5); Neutrophil # 4.33 X10^3/uL (2.7-7.7); Neutrophil % 67.5 % (47-70); Platelet Count 220 K/mm3 (150-450); RBC Distribution Width CV 14.6 % (11.6-14.6); RBC Distribution Width SD 47.2 fl (35.1-43.9); Red Blood Count 5.18 M/mm3 (4.6-6.2); White Blood Count 6.4 K/mm3 (4.4-11.0)
[2020-09-04 13:13] VITALS: BP 149/72; PULSE 64; RESP 20; O2SAT 94
[2020-09-04 13:21] LABS: Color, Urine Yellow (Yellow); Glucose, Dipstick Normal (Normal); Ketone-Dipstick 5 mg/dl (Negative); Leukocyte Esterase-Dipstick 25 /ul (Negative); Nitrite-Dipstick Negative (Negative); Occult Blood-Urine Negative /ul (Negative); Protein-Dipstick 15 mg/dl (Negative); Specific Gravity, Urine 1.015 (1.002-1.030); Urine Clarity Clear (Clear); Urine Urobilinogen 8 mg/dl (Normal)
[2020-09-04 13:22] LABS: Anion Gap 2 (5-15); BUN 7 mg/dL (7-18); BUN/Creat Ratio 6.5 RATIO (10-20); Calcium,Total 9.6 mg/dL (8.5-10.1); Chloride 106 mmol/L (98-107); Creatinine, Serum 1.08 mg/dL (0.70-1.30); EST Glomerular Filtration Rate 70 mL/min (>60); Est Glom Filt Rate - Afr Amer 85 mL/min (>60); Glucose 99 mg/dL (74-106); Potassium 3.8 mmol/L (3.5-5.1); Sodium Level 138 mmol/L (136-145)
[2020-09-04 13:22] LABS: Urine Bilirubin Dipstick 1 mg/dL (Negative)
[2020-09-04 14:14] VITALS: BP 164/66; PULSE 65; RESP 20; O2SAT 95
[2020-09-04 14:29] VITALS: PULSE 68; RESP 16
[2020-09-04 14:40] VITALS: BMI 27.3
== END 2020-09-04 14:42 | disposition home or self-care (01) ==
LOC: ED 12:44
PROVIDERS: Emergency Provider Emergency Medicine; PCP Family Medicine
DX: R41.0 Disorientation, unspecified (principal); K02.9 Dental caries, unspecified; Z95.0 Presence of cardiac pacemaker
CPT/HCPCS: 70450; 71045; 80048; 81002; 84484; 85025; 93005; 96360; 96361; 99284

== ENCOUNTER 2020-09-06 21:48 | Emergency (ER) | payer MEDICARE, OTHER, SELFPAY ==
[2020-09-06 21:49] VITALS: BP 171/80; PULSE 79; RESP 20; TEMP 36.4; O2SAT 96; BMI 27.8
[2020-09-06 21:52] VITALS: BP 171/80; PULSE 79; RESP 20; TEMP 36.4; O2SAT 96
--- NOTE | 2020-09-06 22:15 | EKG12_ITS ---
Test Reason : CONFUSION Blood Pressure : / mmHG Vent. Rate : 075 BPM Atrial Rate : 075 BPM P-R Int : 174 ms QRS Dur : 094 ms QT Int : 370 ms P-R-T Axes : 051 003 049 degrees QTc Int : 413 ms Normal sinus rhythm Voltage criteria for left ventricular hypertrophy Nonspecific ST abnormality Abnormal ECG Confirmed by JEROME STARKS, ARMAAN ([id number]), assistant production editor DEE DEE POLLOCK ([id number]) on 09/13/2020 8:41:28 A M Referred By: YANA Confirmed By:REBEL CANO MD
--- NOTE | 2020-09-06 22:15 | RAD_ITS ---
STUDY: X-RAY CHEST REASON FOR EXAM: Male, 80 years old. CONFUSION TECHNIQUE: Single frontal view of the chest. COMPARISON: 09/04/2020 FINDINGS: There is no new focal consolidation. Normal size heart. There is a cardiac pacer device in place. Normal mediastinum and jorge. Normal visualized pulmonary arteries. Normal visualized aortic arch and descending thoracic aorta. Normal visualized thoracic spine. There are postsurgical changes of the visualized cervical spine. There is degenerative osteoarthritis of the bilateral shoulders. There is no demonstrated abnormality of the visualized soft tissue structures of the upper abdomen. RAD/Chest 1 View (Portable) IMPRESSION: No acute cardiopulmonary process. Electronically Signed: Arielle Roberts MD at 23:02 EDT Tel , Service support ,
--- NOTE | 2020-09-06 22:17 | ED.VIS.GEN ---
History of Present Illness Chief Complaint: Confusion Informant: Patient, Family Onset: Days Timing: Intermittent Narrative: Patient returns to the ER with his son secondary to continued confusion. Patient was diagnosed with a dental abscess on Sunday of last week. He was started on amoxicillin. Son states since that time he has had periods of confusion that would last for couple hours at a time. He was seen in the ER 2 days ago for the same. He was ANO x3 at that time and work-up was unremarkable. Son states that PCP told him of symptoms were not improving to go back to the emergency room so they returned tonight. Patient reportedly had a temperature of 100 at home prior to coming to the emergency room. Patient at this time has no complaints, however does report shortness of breath with mild cough. - Past Medical History (1) Essential (primary) hypertension Status: Chronic (2) History of permanent cardiac pacemaker placement Status: Chronic (3) Hyperlipidemia Status: Chronic (4) SSS (sick sinus syndrome) Status: Chronic (5) TIA (transient ischemic attack) Status: Chronic Past Medical History - Allergies and Home Meds Allergies/Adverse Reactions: Allergies No Known Allergies Allergy (Verified 09/04/20 11:59) Primary Care Physician: Momo Ureña MD [Primary Care Provider] - 3-5 Days if not improving Surgical History: - - Bilateral cataract surgery, cervical spine fusion, thyroidectomy, sinus surgery, pacemaker. Lives: With Family Smoking Status: Never smoker - Family History Maternal Family History: Family History (Last Reviewed 05/04/20 @ 14:[address] Ti Hoffman MD) Father Heart disease Brother Heart disease Mother Heart disease Family History: Reports: - - MVA Paternal Family History: Family History (Last Reviewed 05/04/20 @ 14:[address] Ti Hoffman MD) Father Heart disease Brother Heart disease Mother Heart disease Family History: Reports: - - COPD Review of Systems General: Reports: Fever - Temperature of 100 prior to arrival Eyes: Denies: Visual changes - bilaterally ENT: Denies: Bilateral ear pain Cardiovascular: Denies: Chest pain Respiratory: Reports: Dyspnea, Cough Gastrointestinal: Denies: Abdominal pain, Nausea, Vomiting, Diarrhea Genitourinary: Denies: Dysuria Musculoskeletal: Denies: Extremity Pain Neurological: Denies: Headache Hematologic: Denies: Easy bruising, Easy bleeding Allergy: Denies: Uticaria Physical Exam Vital Signs/Narrative: Vital Signs Temp Pulse Resp BP Pulse Ox 09/06/20 21:52 97.6 F L 79 20 H 171/80 H 96 09/06/20 21:49 97.6 F L 79 20 H 171/80 H 96 Inital Vital Signs reviewed: Yes General: Well nourished, Well developed Head: Normocephalic ENT: Moist mucous membranes Neck: Supple Cardiovascular: Regular rate, Regular rhythm Respiratory: No distress, CTA bilaterally, - - Tachypneic Abdomen: Soft, Nontender Skin: Normal color Neurological: Alert, Normal Strength, Normal Sensation Psychological: Normal affect Diagnostic/Tx/Re-eval Impressions Chest X-Ray 09/06/20 22:15 IMPRESSION: No acute cardiopulmonary process. Electronically Signed: Arielle Roberts MD at 23:02 EDT Tel , Service support , Brain CT 09/06/20 23:22 IMPRESSION: 1. Stable exam. No intracranial hemorrhage or acute intracranial disease identified. 2. Age-appropriate cerebral cortical atrophy. Individualized dose optimization techniques were used for this CT. at 0017 Reported and signed by: Sheng Patrick MD Electronically Signed: Sheng Patrick, at 0:16 EDT Tel , Service support , 09/06/20 22:15 Chest 1 View (Portable) [RAD] Stat 09/06/20 23:22 CT Head [Brain/Head without Contrast] [CT] Stat Laboratory Results 09/06/20 09/06/20 09/06/20 21:50 22:00 22:00 WBC 8.1 RBC 5.20 Hgb 14.3 Hct 44.6 MCV 85.8 MCH 27.5 MCHC 32.1 RDW Std Deviation 44.2 H RDW Coeff of Paulo 14.3 Plt Count 268 MPV 10.1 Immature Gran % (Auto) 0.200 Neut % (Auto) 66.3 Lymph % (Auto) 20.9 Gulf % (Auto) 10.2 H Eos % (Auto) 2.2 Baso % (Auto) 0.2 Absolute Neuts (auto) 5.4 Absolute Lymphs (auto) 1.70 Nucleated RBC % 0 D-Dimer Quant (PE/DVT) 0.35 Sodium Potassium Chloride Carbon Dioxide Anion Gap BUN Creatinine Estim Creat Clear Calc Est GFR (MDRD) Af Amer Est GFR (MDRD) Non-Af BUN/Creatinine Ratio Glucose Lactic Acid Calcium Total Bilirubin Direct Bilirubin AST ALT Alkaline Phosphatase Troponin I B-Natriuretic Peptide Total Protein Albumin Globulin TSH Urine Color Yellow Urine Clarity Clear Urine pH 6.5 Ur Specific [place] 1.010 Urine Protein 15 H Urine Glucose (UA) Normal Urine Ketones Negative Urine Occult Blood Negative Urine Nitrite Negative Urine Bilirubin Negative Urine Urobilinogen 4 H Ur Leukocyte Esterase 25 H Urine RBC 0 SEEN Urine WBC 0 SEEN Ur Squamous Epith Cells 0 SEEN Urine Bacteria 0 SEEN Urine Mucus 0 SEEN COVID-19 (HIRAM) 09/06/20 09/06/20 09/06/20 22:00 22:00 22:20 WBC RBC Hgb Hct MCV MCH MCHC RDW Std Deviation RDW Coeff of Paulo Plt Count MPV Immature Gran % (Auto) Neut % (Auto) Lymph % (Auto) Gulf % (Auto) Eos % (Auto) Baso % (Auto) Absolute Neuts (auto) Absolute Lymphs (auto) Nucleated RBC % D-Dimer Quant (PE/DVT) Sodium 135 L Potassium 3.6 Chloride 102 Carbon Dioxide 28.0 Anion Gap 5 BUN 7 Creatinine 1.14 Estim Creat Clear Calc 55.14 Est GFR (MDRD) Af Amer 80 Est GFR (MDRD) Non-Af 66 BUN/Creatinine Ratio 6.1 L Glucose 102 Lactic Acid Calcium 9.1 Total Bilirubin 1.80 H Direct Bilirubin 0.47 H AST 39 H ALT 27 Alkaline Phosphatase 119 H Troponin I < 0.015 B-Natriuretic Peptide 106.4 H Total Protein 7.2 Albumin 3.5 Globulin 3.7 TSH 0.35 L Urine Color Urine Clarity Urine pH Ur Specific [place] Urine Protein Urine Glucose (UA) Urine Ketones Urine Occult Blood Urine Nitrite Urine Bilirubin Urine Urobilinogen Ur Leukocyte Esterase Urine RBC Urine WBC Ur Squamous Epith Cells Urine Bacteria Urine Mucus COVID-19 (HIRAM) Not Detected 09/06/20 22:25 WBC RBC Hgb Hct MCV MCH MCHC RDW Std Deviation RDW Coeff of Paulo Plt Count MPV Immature Gran % (Auto) Neut % (Auto) Lymph % (Auto) Gulf % (Auto) Eos % (Auto) Baso % (Auto) Absolute Neuts (auto) Absolute Lymphs (auto) Nucleated RBC % D-Dimer Quant (PE/DVT) Sodium Potassium Chloride Carbon Dioxide Anion Gap BUN Creatinine Estim Creat Clear Calc Est GFR (MDRD) Af Amer Est GFR (MDRD) Non-Af BUN/Creatinine Ratio Glucose Lactic Acid 0.9 Calcium Total Bilirubin Direct Bilirubin AST ALT Alkaline Phosphatase Troponin I B-Natriuretic Peptide Total Protein Albumin Globulin TSH Urine Color Urine Clarity Urine pH Ur Specific [place] Urine Protein Urine Glucose (UA) Urine Ketones Urine Occult Blood Urine Nitrite Urine Bilirubin Urine Urobilinogen Ur Leukocyte Esterase Urine RBC Urine WBC Ur Squamous Epith Cells Urine Bacteria Urine Mucus COVID-19 (HIRAM) - Medical Decision Making Patient was observed on monitoring engineer throughout his ED stay. Covid test did return negative. Blood work including urinalysis are all unremarkable. Son describes intermittent periods of confusion, but no focal neuro symptoms such as slurred speech, difficulty with word finding, facial droop, etc. to indicate evidence of TIAs or stroke. It is suspicious that the patient's confusion started when he was diagnosed with a dental abscess and started on antibiotics. Patient has had 2 work-ups in 3 days with unremarkable findings. Patient is not able to undergo MRI secondary to having a pacemaker. I do not know that any further testing will be pertinent in the hospital if he were admitted. At this time we will switch his antibiotics to a different class of medication to see if this may be having some kind of an interaction with his home meds and causing intermittent confusion. Son is in agreement this plan and feels comfortable caring for him at home. ED Disposition - Plan for ED Patient: Disposition: Home or Assisted Living Diagnosis: Confusion Instructions: ED Confusion Prescriptions: Clindamycin [Cleocin] 300 mg PO 4X/DAY #40 cap Transmission Status: Pending to [facility] [place] Referrals: Momo Ureña MD [Primary Care Provider] - 3-5 Days if not improving
[2020-09-06 22:26] LABS: Bacteria 0 SEEN /hpf (None Seen); Mucous, Urine 0 SEEN /hpf (<or=2+); Red Blood Cells-Urine 0 SEEN /hpf (0-5); Squamous Epithelial Cells - UA 0 SEEN /hpf (0-5); White Blood Cells 0 SEEN /hpf (0-5)
[2020-09-06 22:30] LABS: Absolute Neutrophil Count 5.4 X10^3/uL (2.0-7.7); Basophil# 0.02 X10^3/uL; Basophil% 0.2 % (0-1); Eosinophil# 0.18 X10^3/uL; Eosinophils% 2.2 % (0-5); Hematocrit 44.6 % (40-54); Hemoglobin 14.3 g/dL (13.0-16.5); Lymphocyte % 20.9 % (19-41); Mean Corp Hgb Conc 32.1 g/dL (32-36); Mean Corpuscular Hgb 27.5 pg (27.0-32.0); Mean Corpuscular Volume 85.8 fL (80-94); Mean Platelet Vol. 10.1 fl (6.2-12.0); Monocyte# 0.83 X10^3/uL; Monocyte% 10.2 % (0-10); NRBC Flagged by Analyzer 0 % (0-5); Neutrophil # 5.39 X10^3/uL (2.7-7.7); Neutrophil % 66.3 % (47-70); Platelet Count 268 K/mm3 (150-450); RBC Distribution Width CV 14.3 % (11.6-14.6); RBC Distribution Width SD 44.2 fl (35.1-43.9); White Blood Count 8.1 K/mm3 (4.4-11.0)
[2020-09-06 22:35] LABS: Color, Urine Yellow (Yellow); Glucose, Dipstick Normal (Normal); Ketone-Dipstick Negative (Negative); Leukocyte Esterase-Dipstick 25 /ul (Negative); Nitrite-Dipstick Negative (Negative); Occult Blood-Urine Negative /ul (Negative); Protein-Dipstick 15 mg/dl (Negative); Urine Bilirubin Dipstick Negative (Negative); Urine Clarity Clear (Clear); Urine Urobilinogen 4 mg/dl (Normal); Urine pH 6.5 (5.0 - 8.0)
[2020-09-06 22:37] LABS: D-Dimer Quantitative (DVT/PE) 0.35 FEU/ug/m (0.27-0.49)
[2020-09-06 22:51] LABS: AST(SGOT) 39 U/L (15-37); Alanine Aminotransfer ALT/SGPT 27 U/L (16-61); Albumin, Serum 3.5 g/dL (3.2-5.0); Alkaline Phosphatase 119 U/L (45-117); Anion Gap 5 (5-15); BUN 7 mg/dL (7-18); BUN/Creat Ratio 6.1 RATIO (10-20); Bilirubin, Direct 0.47 mg/dL (0.00-0.30); Calcium,Total 9.1 mg/dL (8.5-10.1); Chloride 102 mmol/L (98-107); Creatinine, Serum 1.14 mg/dL (0.70-1.30); EST Glomerular Filtration Rate 66 mL/min (>60); Est Glom Filt Rate - Afr Amer 80 mL/min (>60); Estimated Creatinine Clearance 55.14 ml/min; Globulin 3.7 g/dL (2.2-4.2); Glucose 102 mg/dL (74-106); Potassium 3.6 mmol/L (3.5-5.1); Protein, Total 7.2 g/dL (6.4-8.2); Sodium Level 135 mmol/L (136-145); Thyroid Stim Hormone (TSH) 0.35 uIU/mL (0.358-3.74)
[2020-09-06 22:52] VITALS: BP 151/56; PULSE 81; RESP 22; TEMP 37.2; O2SAT 96
[2020-09-06 22:56] LABS: BNP,B-Type NATRIURETIC PEPTIDE 106.4 pg/mL (0-100)
[2020-09-06 23:00] VITALS: BP 151/56; PULSE 81; RESP 22; TEMP 37.2; O2SAT 96
[2020-09-06 23:04] LABS: Lactic Acid 0.9 mmol/L (0.4-1.9)
--- NOTE | 2020-09-06 23:22 | CT_ITS ---
HISTORY: INCREASED CONFUSION SINCE SUNDAY EXAMINATION: CT Head or Brain W/O Contrast Injection TECHNIQUE: Multiple axial images were obtained of the brain without intravenous contrast. A radiation dose optimization technique was used for this scan. IV Contrast dosage and agent: None COMPARISON: 09/04/2020 FINDINGS: No significant change. Normal ventricles. Age appropriate cerebral cortical atrophy. No intracranial mass, hemorrhage, or acute parenchymal abnormality. Posterior fossa structures are unremarkable. No suspicious extra-axial fluid collection. As visualized, and the mastoids are clear. CT/Brain/Head without Contrast IMPRESSION: 1. Stable exam. No intracranial hemorrhage or acute intracranial disease identified. 2. Age-appropriate cerebral cortical atrophy. Individualized dose optimization techniques were used for this CT. at 0017 Reported and signed by: Sheng Patrick MD Electronically Signed: Sheng Patrick, at 0:16 EDT Tel , Service support ,
[2020-09-06 23:49] VITALS: BP 163/73; PULSE 80; RESP 24; O2SAT 94
[2020-09-07] VITALS: BP 163/73; PULSE 80; RESP 24; TEMP 37.2; O2SAT 94
[2020-09-07 01:07] VITALS: BP 126/82; PULSE 71; RESP 18; O2SAT 98
== END 2020-09-07 01:12 | disposition home or self-care (01) ==
PROVIDERS: Emergency Provider Emergency Medicine; PCP Family Medicine
DX: R41.0 Disorientation, unspecified (principal); R06.00 Dyspnea, unspecified; R05 Cough; R50.9 Fever, unspecified; I10 Essential (primary) hypertension; E78.5 Hyperlipidemia, unspecified; I49.5 Sick sinus syndrome; Z86.73 Personal history of transient ischemic attack (TIA), and cerebral infarction without residual deficits; Z95.0 Presence of cardiac pacemaker; Z79.82 Long term (current) use of aspirin; Z79.899 Other long term (current) drug therapy
CPT/HCPCS: 36415; 70450; 71045; 80048; 80076; 81001; 83605; 83880; 84443; 84484; 85025; 85379; 87040; 87635; 93005; 99281; 99285; A4216; U0003

== ENCOUNTER → 2020-10-06 08:16 | Outpatient (CLI) | payer MEDICARE, OTHER, SELFPAY ==
[2020-09-06 21:49] VITALS: BMI 27.8
--- NOTE | 2020-10-06 08:22 | MRI_ITS ---
STUDY: MRI BRAIN WITHOUT CONTRAST REASON FOR EXAM: Male, 80 years old. delirium, fall, confusion TECHNIQUE: Standardized multiplanar fat and water weighted pulse sequences were obtained. COMPARISON: CT 09/06/2020, MRI FINDINGS: There is mild cerebral atrophy with widening of the extra-axial spaces and ventricular dilatation. There are a limited number of small white matter hyperintensities, distributed throughout the deep white matter tracts of the cerebral hemispheres, consistent with mild chronic white matter ischemic changes. There is no evidence for recent intracranial ischemia or other cause of cytotoxic edema on diffusion weighted imaging (DWI). Normal T2* images of the brain without demonstrated susceptibility artifact. There is no demonstrated hemosiderin stain. Normal bilateral basal ganglia. Normal thalami. There is no extra-axial fluid accumulation. Normal flow voids within the major intracranial circulation suggesting patency by spin echo criteria. Normal sella turcica, pituitary gland, infundibular stalk, optic chiasm and hypothalamus. Normal tectal plate and pineal gland. Normal midbrain, rachell and medulla. Normal cerebellum. Normal basal cisterns. Normal bilateral temporal bones. Normal bilateral internal auditory canals. There are bilateral ocular lens implants with otherwise normal intraorbital contents. Normal visualized paranasal sinuses. Normal calvarium and skull base. Normal visualized soft tissue structures. Normal visualized upper cervical spine. MRI/Brain without Contrast IMPRESSION: Involutional changes of the brain, as described above. No acute infarct. Electronically Signed: Dwight Fountain MD at 9:59 EST Tel , Service support ,
[2020-10-06 08:59] VITALS: BP 127/71; PULSE 80; RESP 14; O2SAT 95
[2020-10-06 09:18] VITALS: BP 123/68; PULSE 79; RESP 14; O2SAT 96
== END ==
PROVIDERS: PCP Family Medicine; Referring Provider Psychiatry & Neurology Neurology; Visit Provider Psychiatry & Neurology Neurology
DX: R41.0 Disorientation, unspecified (principal); W19.XXXD Unspecified fall, subsequent encounter
CPT/HCPCS: 70551

== ENCOUNTER → 2020-10-12 08:48 | Outpatient (CLI) | payer MEDICARE, OTHER, SELFPAY ==
--- NOTE | 2020-10-12 11:16 | TELEMED_ITS ---
[facility] Tele[facility] has confirmed receipt of a request for visit. This document confirms receipt of the order initiating the consult. To find the results of the consultation, please view the patient's reports for the scanned Telemed Consult.
== END ==
PROVIDERS: PCP Family Medicine; Referring Provider Psychiatry & Neurology Neurology; Visit Provider Psychiatry & Neurology Neurology
DX: R41.0 Disorientation, unspecified (principal); W19.XXXD Unspecified fall, subsequent encounter
CPT/HCPCS: 95819

== ENCOUNTER 2020-11-17 13:01 | Emergency (ER) | payer MEDICARE, OTHER, SELFPAY ==
[2020-11-17 13:01] VITALS: BP 149/70; PULSE 63; RESP 17; TEMP 36.4; O2SAT 99; BMI 25.8
--- NOTE | 2020-11-17 13:16 | CT_ITS ---
STUDY: CT ABDOMEN AND PELVIS WITHOUT CONTRAST REASON FOR EXAM: Male, 80 years old. Constipation x 9 days. RADIATION DOSAGE (If Supplied By Facility): CTDIvol = ( 9.90 ) mGy, DLP = ( 482.53 ) mGycm TECHNIQUE: Transaxial images were obtained from the dome of the diaphragm to the symphysis pubis without oral contrast, and without intravenous contrast. Sagittal and coronal images were reconstructed. Individualized dose optimization techniques were used for this CT. COMPARISON: None. FINDINGS: Hyperinflation. Mild scarring at the lung bases. Minimal pericardial thickening. Dual-chamber pacemaker is seen. Normal liver. Multiple small layering gallstones. Normal spleen. Normal pancreas. Normal bilateral adrenal glands. Punctate calculus in the upper pole of the right kidney. There is a 4.9 mm calculus in the upper pole calyx of the left kidney. There is a 1 cm hypodensity in the posterior inferior pole of the left kidney most likely representing a small cyst. Normal visualized stomach. Normal small intestine. There are multiple colonic diverticula consistent with diverticulosis. The appendix is visualized and appears normal. There is diffuse atherosclerotic calcification of the abdominal aorta, without a demonstrated aneurysm. Normal inferior vena cava. Normal retroperitoneum. Mild degree of the bladder wall thickening although the bladder is not completely distended. There is enlargement of the prostate gland. It measures 5.3 cm x 4.5 cm. This causes indentation at the bladder base. Normal abdominal wall. There are mild degenerative changes of the visualized lumbar spine. CT/Abdomen/Pelvis without Cont IMPRESSION: Sigmoid diverticulosis. Nonobstructive bilateral intrarenal calculi. Multiple small gallstones. Electronically Signed: Brenden Kang, at 14:23 EST , Service support ,
--- NOTE | 2020-11-17 13:21 | ED.VISSUMM ---
- ER Visit Summary Date of Service: 11/17/20 Chief Complaint: Constipation History of Present Illness: The patient is a [address] Ureña. He has never had a colonoscopy. He reports that typically has a bowel movement every other day. He is now not had a bowel movement for 9 days. Denies any change in his diet. No new medications. Patient denies abdominal pain. He does report that he has a sensation of fullness. He denies any nausea, vomiting, dysuria, or frequency. His review of systems is negative. Physical Examination: Vitals: Stable. Afebrile. General: Well-nourished and well-developed. Head: Normocephalic atraumatic. Neck: Supple, no lymphadenopathy. No JVD. Nontender. Cardiovascular: Regular rate and rhythm. 2 out of 6 systolic murmur. Respiratory: No respiratory distress. Clear to auscultation bilaterally. Abdominal: Soft, nontender, nondistended, normal bowel sounds. No guarding, rebound, or peritoneal signs. Rectal: No stool in the vault. Nontender. Back: Nontender. Extremities: Nontender, no edema. Skin: Normal color, no rash. Neurologic: Alert and oriented ?3. Cranial nerves II through XII are intact. Normal strength and sensation. Psych: Normal affect. Test Results: CBC is normal. Chem-7 is normal. Clinical Impression(s) from Imaging Studies Abdomen/Pelvis CT 11/17/20 13:16 IMPRESSION: Sigmoid diverticulosis. Nonobstructive bilateral intrarenal calculi. Multiple small gallstones. Electronically Signed: Brenden Kang, at 14:23 EST , Service support , Emergency Department Course and Treatment: Patient is resting comfortably without complaint. Treatment Plan: Patient will be discharged with magnesium citrate and instructed to follow-up with his primary care physician in 1 to 2 days if not improving. Follow-up with Dr. Carranza as soon as possible to have a colonoscopy. Return to the emergency department for any worsening symptoms. Disposition: To home in improved and stable condition. Impression: 1. Constipation. This note was generated with [employer] software. It may contain incorrect words, spelling, and punctuation that were not noted in review of the chart prior to signing ED Disposition - Plan for ED Patient: Instructions: ED Constipation (Adult) Prescriptions: Magnesium Citrate [Citrate Of Magnesia] 300 ml PO X1 #1 bottle Referrals: Momo Ureña MD [Primary Care Provider] - 1-2 Days if not improving Sheela Carranza MD [STAFF PHYSICIAN] - As soon as possible
[2020-11-17 13:42] LABS: Absolute Lymphocyte Count 1.66 X10^3/uL (0.83-4.51); Absolute Neutrophil Count 3.4 X10^3/uL (2.0-7.7); Basophil# 0.03 X10^3/uL; Basophil% 0.5 % (0-1); Eosinophil# 0.16 X10^3/uL; Eosinophils% 2.8 % (0-5); Hematocrit 46.1 % (40-54); Lymphocyte # 1.66 X10^3/ul (4.0); Lymphocyte % 28.8 % (19-41); Mean Corp Hgb Conc 32.5 g/dL (32-36); Mean Corpuscular Hgb 28.2 pg (27.0-32.0); Mean Corpuscular Volume 86.8 fL (80-94); Mean Platelet Vol. 10.2 fl (6.2-12.0); Monocyte% 8.7 % (0-10); NRBC Flagged by Analyzer 0 % (0-5); Neutrophil # 3.39 X10^3/uL (2.7-7.7); Neutrophil % 58.9 % (47-70); Platelet Count 266 K/mm3 (150-450); RBC Distribution Width CV 14.5 % (11.6-14.6); RBC Distribution Width SD 45.6 fl (35.1-43.9); Red Blood Count 5.31 M/mm3 (4.6-6.2); White Blood Count 5.8 K/mm3 (4.4-11.0)
[2020-11-17 13:55] LABS: Anion Gap 6 (5-15); BUN 11 mg/dL (7-18); BUN/Creat Ratio 8.5 RATIO (10-20); Calcium,Total 9.8 mg/dL (8.5-10.1); Chloride 103 mmol/L (98-107); Creatinine, Serum 1.29 mg/dL (0.70-1.30); EST Glomerular Filtration Rate 57 mL/min (>60); Est Glom Filt Rate - Afr Amer 69 mL/min (>60); Estimated Creatinine Clearance 48.73 ml/min; Glucose 105 mg/dL (74-106); Potassium 3.9 mmol/L (3.5-5.1); Sodium Level 138 mmol/L (136-145)
[2020-11-17 14:41] VITALS: BP 131/64; PULSE 61; RESP 18; O2SAT 99
== END 2020-11-17 14:42 | disposition home or self-care (01) ==
PROVIDERS: Emergency Provider Emergency Medicine; PCP Family Medicine
DX: K59.00 Constipation, unspecified (principal); I49.5 Sick sinus syndrome; Z86.73 Personal history of transient ischemic attack (TIA), and cerebral infarction without residual deficits; Z79.82 Long term (current) use of aspirin; Z79.899 Other long term (current) drug therapy
CPT/HCPCS: 74176; 80048; 85025; 99282; A4216

== ENCOUNTER → 2021-02-15 11:19 | Outpatient (CLI) | payer MEDICARE, OTHER, SELFPAY ==
[2020-12-02 08:34] VITALS: BMI 25.4
[2021-02-15 12:12] LABS: PSA,Total - Annual Screen 5.48 ng/mL (0.00-4.00)
== END ==
PROVIDERS: PCP Family Medicine; Referring Provider Urology; Visit Provider Urology
DX: Z12.5 Encounter for screening for malignant neoplasm of prostate (principal)
CPT/HCPCS: 36415; 84153; G0103

== ENCOUNTER → 2021-04-29 14:02 | Outpatient (CLI) | payer MEDICARE, OTHER, SELFPAY ==
[2020-12-02 08:34] VITALS: BMI 25.4
[2021-04-29 15:10] LABS: PSA,Total- Diagnostic 6.55 ng/mL (0.0-4.0)
== END ==
PROVIDERS: PCP Family Medicine; Visit Provider Urology
DX: R97.20 Elevated prostate specific antigen [PSA] (principal)
CPT/HCPCS: 36415; 84153

== ENCOUNTER 2021-06-21 09:33 | Emergency (ER) | payer MEDICARE, OTHER, SELFPAY ==
[2021-06-01 11:37] VITALS: BMI 27.8
[2021-06-21 09:33] VITALS: BP 137/59; PULSE 66; RESP 16; TEMP 37.7; O2SAT 93; BMI 26.1
--- NOTE | 2021-06-21 09:57 | RAD_ITS ---
STUDY: X-RAY CHEST REASON FOR EXAM: Male, 81 years old. Fever and cough TECHNIQUE: Single AP portable view of the chest. COMPARISON: 09/06/2020 FINDINGS: Stable appearance of a left subclavian pacemaker There are interstitial changes of the lungs. There is no demonstrated pleural abnormality. Normal size heart. Normal mediastinum and jorge. Normal visualized pulmonary arteries. Normal visualized aortic arch and descending thoracic aorta. There are diffuse degenerative changes of the visualized thoracic spine. There is degenerative osteoarthritis of the bilateral shoulders. There is no demonstrated abnormality of the visualized soft tissue structures of the upper abdomen. RAD/Chest 1 View (Portable) IMPRESSION: Chronic interstitial changes, no superimposed acute pulmonary process Electronically Signed: Michael Smith MD at 10:57 EDT , Service support ,
--- NOTE | 2021-06-21 09:57 | CT_ITS ---
STUDY: CT BRAIN WITHOUT CONTRAST REASON FOR EXAM: Male, 81 years old. Altered Mental Status RADIATION DOSAGE (If Supplied By Facility): CTDIvol = ( 44.99 ) mGy, DLP = ( 846.73 ) mGycm TECHNIQUE: Transaxial CT imaging of the brain was performed without administration of intravenous contrast material. Individualized dose optimization techniques were used for this CT. COMPARISON: MR brain from 10/06/2020 FINDINGS: Normal soft tissue structures. Normal calvarium. Normal size ventricles and extra-axial spaces for the patient''s age. Normal white matter tracts of the cerebral hemispheres. Normal basal ganglia and thalami. Normal brainstem. Normal cerebellum. There is no intracranial hemorrhage. There are no findings of an acute ischemic infarction. Normal visualized paranasal sinuses. CT/Brain/Head without Contrast IMPRESSION: Chronic involutional changes of the brain. No acute hemorrhage or significant interval change Electronically Signed: Michael Smith MD at 11:06 EDT , Service support ,
--- NOTE | 2021-06-21 09:57 | EX.ED.DYSGE1 ---
HPI History of Present Illness Chief Complaint: Confusion Narrative Narrative: 81-year-old male presents for evaluation with his son. 3 days ago patient started having headache behind his eyes. His son also states that he has been a little bit more confused intermittently. This does appear to be worse in the evenings. Patient has been sleeping more as well. At times the patient has uncontrolled shaking of his arms and his son states that he will talk to him while he is doing this and it does not appear to be a seizure. Patient does have history of TIA but there has been no facial droop, slurred speech, loss of arm or leg sensation or mobility other than the shaking. Patient's temperature at the highest has been 99.8. 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 He does not complain of shortness of breath. Patient does complain of increased urination and his son states he had to help him to the restroom 6 times last night. He does state that it does burn but he has dysuria frequently. His son does state that he has been weaker and needed more assistance. In addition to this the patient had been seen 6 months ago for similar symptoms and at that time he was being treated for dental infection with Augmentin. After 2 work-ups his antibiotics were changed and the son states that once he was placed on clindamycin the symptoms did resolve. In the interim patient has followed up with his neurologist who has concern for Lewy body dementia as well as possibly early Parkinson's. [facility] Medical History Anxiety and depression Ryder's esophagus BPH (benign prostatic hyperplasia) Essential (primary) hypertension GERD (gastroesophageal reflux disease) Hyperlipidemia Hypothyroidism Narcolepsy Obstructive sleep apnea Patent foramen ovale Post-polio syndrome SSS (sick sinus syndrome) TIA (transient ischemic attack) Vasovagal syncope Home Medications levothyroxine 88 mcg PO DAILY 04/14/18 [History Last Taken Unknown] tamsulosin 0.8 mg PO DAILY 04/14/18 [History Last Taken Unknown] aspirin 81 mg PO DAILY@0800 #30 tab.chew 12/30/18 [Rx Last Taken Unknown] testosterone cypionate 100 mg/mL intramuscular oil 200 mg IM Q3W ml 01/08/19 [History Last Taken Unknown] esomeprazole magnesium 40 mg capsule,delayed release 40 mg PO DAILY 05/04/20 [History Last Taken Unknown] nitroglycerin 0.4 mg sublingual tablet 0.4 mg SUBLINGUAL Q5-15M PRN tab 05/04/20 [History Last Taken Unknown] atorvastatin 40 mg tablet 40 mg PO QHS #90 tab 07/16/20 [Rx Last Taken Unknown] cholecalciferol (vitamin D3) 50 mcg (2,000 unit) tablet 50 mcg PO DAILY 06/01/21 [History Last Taken Unknown] citalopram 20 mg tablet 20 mg PO DAILY tab 06/01/21 [History Last Taken Unknown] hydroxyzine pamoate 25 mg capsule 25 mg PO QHS PRN cap 06/01/21 [History Last Taken Unknown] loratadine 10 mg tablet 10 mg PO DAILY 06/01/21 [History Last Taken Unknown] wheat dextrin 3 gram/3.5 gram oral powder packet 1.5 g PO TID ea 06/01/21 [History Last Taken Unknown] clindamycin HCl 450 mg PO TID 7 Days #63 capsule 06/21/21 [Rx Last Taken Unknown] Allergy/AdvReac Type Severity Reaction Status Date / Time No Known Allergies Allergy Verified 06/21/21 09:39 Family History Father Heart disease Brother Heart disease Mother Heart disease Surgical History History of left heart catheterization (02/2016) History of permanent cardiac pacemaker placement (03/03/16) History of thyroidectomy Social History Smoking Status: Never smoker alcohol intake: current alcohol intake frequency: a few times a month substance use type: does not use caffeine: Yes Type: carbonated beverages and coffee ROS ROS ED Constitutional Constitutional ED: Reports daytime sleepiness, fatigue, headache(s) and weakness; Denies chills or fever(s) Eyes Eyes: Denies blurry vision or diplopia ENT ENT ED: Denies rhinorrhea or sore throat Cardiovascular Cardiovascular: Denies chest pain, palpitations or racing heartbeat Respiratory/Chest Respiratory/Chest: Reports cough; Denies dyspnea, dyspnea on exertion or sputum Gastrointestinal Gastrointestinal: Denies abdominal pain, nausea or vomiting Genitourinary Genitourinary ED: Reports dysuria and urinary frequency Musculoskeletal Musculoskeletal: Denies arthralgias or myalgias Integumentary Denies Abrasions or rash Neurologic Neurologic: Reports headache(s); Denies paresthesias Psychiatric Psychiatric: Denies anxiety or depression EXAM Physical Exam Const Vital Signs: 06/21/21 09:33 06/21/21 12:01 06/21/21 12:41 Temperature 99.8 F H Temperature Source Oral Pulse Rate 66 68 82 Respiratory Rate 16 17 16 Blood Pressure 137/59 H 138/77 H 128/77 H Blood Pressure Mean 85 97 Pulse Ox 93 96 97 Oxygen Delivery Method Room Air Room Air Positive well nourished General Appearance ED: NAD HEENT Reports moist mucous membranes Negative for trauma Eyes PERRL and EOMs intact bilaterally Resp normal respiratory effort and clear to auscultation bilaterally Cardio regular rate and regular rhythm GI normal to inspection, nondistended, normoactive bowel sounds Back/Spine no CVA tenderness Extremity normal to inspection General Extremety ED: Negative for edema or tenderness General Extremity: Negative for edema Neuro oriented x3, CN's II-XII intact bilaterally and no sensory deficits noted Sensorium / Orientation: alert Motor Exam: strength 5/5 throughout Psych mental status grossly normal Skin no rashes or lesions noted, no wounds and skin turgor normal MDM MDM MDM Narrative Medical decision making narrative: Patient presenting with multiple symptoms. He does have history of similar symptoms with Augmentin and he is currently on Augmentin from his dentist and states his dentist told him all of his teeth were infected. On examination his dentition do not appear to be tender to palpation. He does have dentures in place of maxillary teeth. He does not have any tongue swelling, sublingual edema, buccal mucosal abnormalities. Patient's headache will be treated with Reglan and Benadryl. CT brain is negative for acute findings. Chest x-ray on my interpretation shows no acute cardiopulmonary process and the radiologist does agree. Patient's lab work is otherwise unremarkable. Urinalysis negative for infection. Troponin is negative. EKG on my interpretation shows an atrial paced rhythm at [address] elevation, depression. Patient and son counseled on findings and since he has similar symptoms to the last time he is on Augmentin we will switch him to clindamycin. He is counseled to follow-up with his PCP to ensure resolution. I do not believe this sounds like stroke. Patient's son also counseled that given concern for Lewy body dementia as well as Parkinson's this could also be a source of his symptoms. Impression: 1. Confusion 2. Medication side effect Lab Data Attestation: I reviewed the patient's lab results. Labs: Laboratory Results - last 24 hr 06/21/21 06/21/21 06/21/21 10:16 10:16 10:16 WBC 8.3 RBC 4.83 Hgb 12.9 L Hct 40.6 MCV 84.1 MCH 26.7 L MCHC 31.8 L RDW Std Deviation 47.5 H RDW Coeff of Paulo 15.5 H Plt Count 221 MPV 10.4 Immature Gran % (Auto) 0.400 Neut % (Auto) 70.1 H Lymph % (Auto) 17.7 L Ward % (Auto) 9.3 Eos % (Auto) 2.1 Baso % (Auto) 0.4 Absolute Neuts (auto) 5.8 Absolute Lymphs (auto) 1.46 Nucleated RBC % 0 Sodium 136 Potassium 3.8 Chloride 104 Carbon Dioxide 27.0 Anion Gap 5 BUN 7 Creatinine 1.17 Estim Creat Clear Calc 52.86 Est GFR (MDRD) Af Amer 77 Est GFR (MDRD) Non-Af 64 BUN/Creatinine Ratio 6.0 L Glucose 102 Calcium 8.5 Total Bilirubin 1.80 H AST 15 ALT 17 Alkaline Phosphatase 92 Troponin I High Sens 12.2 Total Protein 6.3 L Albumin 3.3 Globulin 3.0 Albumin/Globulin Ratio 1.1 Urine Color Yellow Urine Clarity Clear Urine pH 7.0 Ur Specific [place] 1.010 Urine Protein Negative Urine Glucose (UA) Normal Urine Ketones Negative Urine Occult Blood Negative Urine Nitrite Negative Urine Bilirubin Negative Urine Urobilinogen 4 H Ur Leukocyte Esterase 25 H Urine RBC 0 SEEN Urine WBC 0-5 SEEN Ur Squamous Epith Cells 0 SEEN Urine Bacteria 0 SEEN Urine Mucus RARE Radiography Diagnostic Testing: Radiology Impression Brain CT 06/21/21 09:57 IMPRESSION: Chronic involutional changes of the brain. No acute hemorrhage or significant interval change Electronically Signed: Michael Smith MD at 11:06 EDT , Service support , Chest X-Ray 06/21/21 09:57 IMPRESSION: Chronic interstitial changes, no superimposed acute pulmonary process Electronically Signed: Michael Smith MD at 10:57 EDT , Service support , Discharge Plan Triage Chief Complaint: Confusion ED Provider: Jose Daniel Kramer Dx/Rx/DC Orders Instructions: ED ALOC Prescriptions: New clindamycin HCl 150 mg capsule 450 mg PO TID 7 Days Qty: 63 RF: 0 No Action hydroxyzine pamoate 25 mg capsule 25 mg PO QHS PRNRF: 0 Benefiber Clear SF (dextrin) 3 gram/3.5 gram powder in packet 1.5 g PO TID RF: 0 citalopram 20 mg tablet 20 mg PO DAILY RF: 0 loratadine 10 mg tablet 10 mg PO DAILY RF: 0 cholecalciferol (vitamin D3) 50 mcg (2,000 unit) tablet 50 mcg PO DAILY RF: 0 levothyroxine 88 MCG tablet 88 mcg PO DAILY RF: 0 tamsulosin 0.4 MG capsule 0.8 mg PO DAILY RF: 0 testosterone cypionate 100 mg/mL oil 200 mg IM Q3W RF: 0 esomeprazole magnesium 40 mg capsule,delayed release(DR/EC) 40 mg PO DAILY RF: 0 aspirin 81 MG tablet,chewable 81 mg PO DAILY@0800 Qty: 30 RF: 0 nitroglycerin 0.4 mg tablet, sublingual 0.4 mg SUBLINGUAL Q5-15M PRN (Reason: Cardiac/Chest Pain) RF: 0 atorvastatin 40 mg tablet 40 mg PO QHS Qty: 90 RF: 3 Primary Care Provider: Momo Ureña Referrals: Momo Ureña MD [Primary Care Provider] - Disposition Disposition: Home, Self Care Discharge Date/Time: 06/21/21 12:42
--- NOTE | 2021-06-21 09:58 | EKG12_ITS ---
Test Reason : CONFUSON Blood Pressure : / mmHG Vent. Rate : 060 BPM Atrial Rate : 060 BPM P-R Int : 258 ms QRS Dur : 084 ms QT Int : 408 ms P-R-T Axes : -01 009 030 degrees QTc Int : 408 ms Atrial-paced rhythm with prolonged AV conduction Minimal voltage criteria for LVH, may be normal variant Nonspecific ST abnormality Abnormal ECG Confirmed by ALLAN STARKS, ELIZABETH ([id number]), photograph editor DEE DEE POLLOCK ([id number]) on 06/23/2021 9:55:26 AM Referred By: SHAQUILLE Confirmed By:ELIZABETH LEMUS MD
[2021-06-21] MEDS: DiphenhydrAMINE 50 MG/ML Syringe 25 MG IV (10:14)
[2021-06-21] MEDS: Metoclopramide 10 MG/2 ML Vial IV (10:14)
[2021-06-21 10:20] LABS: Bacteria 0 SEEN /hpf (None Seen); Red Blood Cells-Urine 0 SEEN /hpf (0-5); Squamous Epithelial Cells - UA 0 SEEN /hpf (0-5)
[2021-06-21 10:21] LABS: Color, Urine Yellow (Yellow); Glucose, Dipstick Normal (Normal); Ketone-Dipstick Negative (Negative); Leukocyte Esterase-Dipstick 25 /ul (Negative); Nitrite-Dipstick Negative (Negative); Occult Blood-Urine Negative /ul (Negative); Protein-Dipstick Negative (Negative); Urine Bilirubin Dipstick Negative (Negative); Urine Clarity Clear (Clear); Urine Urobilinogen 4 mg/dl (Normal)
[2021-06-21 10:22] LABS: Absolute Lymphocyte Count 1.46 X10^3/uL (0.83-4.51); Absolute Neutrophil Count 5.8 X10^3/uL (2.0-7.7); Basophil# 0.03 X10^3/uL; Basophil% 0.4 % (0-1); Eosinophil# 0.17 X10^3/uL; Eosinophils% 2.1 % (0-5); Hematocrit 40.6 % (40-54); Hemoglobin 12.9 g/dL (13.0-16.5); Lymphocyte # 1.46 X10^3/ul (0.83-4.51); Lymphocyte % 17.7 % (19-41); Mean Corp Hgb Conc 31.8 g/dL (32-36); Mean Corpuscular Hgb 26.7 pg (27.0-32.0); Mean Corpuscular Volume 84.1 fL (80-94); Mean Platelet Vol. 10.4 fl (6.2-12.0); Monocyte# 0.77 X10^3/uL; Monocyte% 9.3 % (0-10); NRBC Flagged by Analyzer 0 % (0-5); Neutrophil # 5.81 X10^3/uL (2.7-7.7); Neutrophil % 70.1 % (47-70); Platelet Count 221 K/mm3 (150-450); RBC Distribution Width CV 15.5 % (11.6-14.6); RBC Distribution Width SD 47.5 fl (35.1-43.9); Red Blood Count 4.83 M/mm3 (4.6-6.2); White Blood Count 8.3 K/mm3 (4.4-11.0)
[2021-06-21 10:29] LABS: Mucous, Urine RARE /hpf (<or=2+); White Blood Cells 0-5 SEEN /hpf (0-5)
[2021-06-21 10:39] LABS: ALB/GLOB Ratio 1.1 RATIO (0.9-2.4); AST(SGOT) 15 U/L (15-37); Alanine Aminotransfer ALT/SGPT 17 U/L (16-61); Albumin, Serum 3.3 g/dL (3.2-5.0); Alkaline Phosphatase 92 U/L (45-117); Anion Gap 5 (5-15); BUN 7 mg/dL (7-18); Calcium,Total 8.5 mg/dL (8.5-10.1); Chloride 104 mmol/L (98-107); Creatinine, Serum 1.17 mg/dL (0.70-1.30); EST Glomerular Filtration Rate 64 mL/min (>60); Est Glom Filt Rate - Afr Amer 77 mL/min (>60); Estimated Creatinine Clearance 52.86 ml/min; Glucose 102 mg/dL (74-106); Potassium 3.8 mmol/L (3.5-5.1); Protein, Total 6.3 g/dL (6.4-8.2); Sodium Level 136 mmol/L (136-145); Troponin-I HS 12.2 pg/mL (3.0-78.5)
[2021-06-21 12:01] VITALS: BP 138/77; PULSE 68; RESP 17; O2SAT 96
[2021-06-21 12:41] VITALS: BP 128/77; PULSE 82; RESP 16; O2SAT 97
== END 2021-06-21 12:42 | disposition home or self-care (01) ==
PROVIDERS: Emergency Provider Student in an Organized Health Care Education/Training Program; PCP Family Medicine
DX: R41.0 Disorientation, unspecified (principal); T50.905A Adverse effect of unspecified drugs, medicaments and biological substances, initial encounter; Z86.73 Personal history of transient ischemic attack (TIA), and cerebral infarction without residual deficits
CPT/HCPCS: 70450; 71045; 80053; 81001; 84484; 85025; 93005; 96374; 96375; 99283; A4216

== ENCOUNTER 2021-07-27 11:14 | Outpatient (RCR) | payer MEDICARE, OTHER, SELFPAY ==
--- NOTE | 2021-07-27 12:24 | HP.PTEVAL_ITS ---
Patient's Visit Information CARLENE IRWIN is a 81 year old M referred to Physical Therapy by Dr. Jason Matos MD with a diagnosis of PD, B shoulder pain. Date of Evaluation: 07/27/21 Physical Therapist: PO Wilcox - Visit Plan Frequency: 2x /Week Duration: 4 Weeks Plan: 2X/ week starting with 30 min and progressing to 60 for B shoulder AROM, stretching, strengthening, scapular strength, gait training, balance, dual tasking for PD, with HEP. HEP: B shoulder supine wand flexion and seated opp arm and leg - Subjective Pt reports that Both shoulders hurt but his R is getting worse now. He can not reach behind his back and struggles with lifting his arms. He reports that his cartilage is gone in his shoulders. He is R handed. At night when he sleeps he has trouble sleeping and he has to lay on either side due to having to wear a c- pap. He has been recently diagnosed with PD. He was diagnosed by Dr Matos. He does not believe that he has it. 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 he could not lift his head or turn and he still has dysphasia. His L arm started to go out again several years ago and he has no strength. He has B hand tremors. He reports that he has more weakness on the L side than the R side. He has broken his legs a few times and now his legs are even in height now. He does not have trouble getting up out of a chair. Stairs: alternates with 1 handrail up and two feet to a stair going down. He has fallen... 2 weeks ago he was kicking gravel and he fell on his head, hip and shoulder. He has had a series of seizures due to dental antibiotic. He falls approx couple times a month. He does get dizzy. His dizziness just comes on random. His son feels that he is dehydrated and he gets a SPARROW across his eyebrows and then he feels really weak but does not pass out. He drives some. He is not on PD meds. He reports that he can not walk as far as he used to. His legs feel weak and draggy - Objective Gait: Pt was SOB after walking and took a few minutes to recover. Pt has good step length. He has decrease all arm swing. He struggles to cook pickled meat his L foot. FGA: 15. LE MMT: R hip flex 4-/5 and L 4/5, R knee ext 4/5 and L knee ext 4-/5, R knee flex 4/5 and L knee flex 4-/5, R hip abd 3+/5 and L hip abd 4/5, pt is able to due a 3/4 normal ROM bridge. Pt has tight gastroc tightness. Pt is able to walk on heels and toes. UE AROM: R shoulder Flexion approx 120 degrees and L flexion approx 150 degrees, R abd approx 120 degrees and started with pain but could go to approx 160 degrees, and L shld abd 160 degrees, R IR to PSIS and L IR to L1.... with increase pain on the R, R ER 20 degrees and L ER 32 degrees. UE MMT: R shoulder flexion 3+/5, L shoulder flex 4-/5, R shld abd 3+/5 and L shld abd 4-/5, B shld IR and ER 4-/5. R shoulder PROM: More ROM Passivly B with less pain. TUG 10.23 - Balance/Special Test Scores Functional Gait Assessment Score: 15 % Disability: 50.0000 Quick DASH Score: 43.1800 - Goals Goal 1:: I HEP Goal 2:: Increase FGA by 5 points to decrease fall risk (score was 15 at time of the eval) Goal Time Frame: 4-6 Weeks Goal 3:: Increase B pain free UE AROM (at time of eval: UE AROM: R shoulder Flexion approx 120 degrees and L flexion approx 150 degrees, R abd approx 120 degrees and started with pain but could go to approx 160 degrees, and L shld abd 160 degrees, R IR to PSIS and L IR to L1.... with increase pain on the R, R ER 20 degrees and L ER 32 degrees). Goal Time Frame: 4-6 Weeks Goal 4:: Increase LE strength by 1/2 muscle grade (at time of the eval: LE MMT: R hip flex 4-/5 and L 4/5, R knee ext 4/5 and L knee ext 4-/5, R knee flex 4/5 and L knee flex 4-/5, R hip abd 3+/5 and L hip abd 4/5, pt is able to due a 3/4 normal ROM bridge). Goal Time Frame: 4-6 Weeks - Rehabilitation Potential Rehabilitation Potential: Good - Anticipated Interventions Patient/Client Instruction: Educate patient on: Condition For the Purpose of:: To decrease pain, To increase ROM, To improve nutrient delivery to tissue, To improve muscle performance and motor function, To improve ability to perform ADL's, To increase tolerance to activity/condition/position, To improve performance and independence with ADL's, To decrease level of supervision to perform tasks, To improve ability of physical actions for home/community/work/leisure, To improve gait and locomotor functions, To improve health of tissue, To increase flexibility/ROM, To improve endurance, To improve balance, To improve safety with gait Therapeutic Exercise to Include: Strength training, Endurance training, Balance training, Coordination, Body mechanics, Postural training, Flexibilty training, Gait and locomotor training, Neuromotor development, Active ROM, Dynamic Lumbar Stabilization, Scapular Strength/Stabilization For the Purpose of:: To decrease pain, To increase ROM, To improve nutrient deli very to tissue, To improve muscle performance and motor function, To improve ability to perform ADL's, To increase tolerance to activity/condition/position, To improve performance and independence with ADL's, To decrease level of supervision to perform tasks, To improve ability of physical actions for home/community/work/leisure, To improve gait and locomotor functions, To improve health of tissue, To decrease soft tissue restriction, To increase flexibility/ROM, To improve balance, To improve safety with gait Functional Training to Include: Gait training For the Purpose of:: To improve gait and locomotor functions Manual Therapy Techniques to Include: Mobilization, Passive ROM For the Purpose of:: To decrease pain, To increase ROM, To improve nutrient delivery to tissue Thank you for the opportunity to evaluate your patient. For Medicare and Medicare HMO plans, please review the plan of care and approve it. It will need to be FAXED BACK to us at [phone] for Medicare purposes. For Medicare only, by signing this I certify the plan of care. Please let me know if there are questions or concerns regarding this plan of care. Physician Signature: Date:
--- NOTE | 2021-08-09 12:42 | HP.PTDCSUM ---
It has been my pleasure to treat CARLENE IRWIN referred by Dr. Jason Matos MD, with the diagnosis of PD, B shoulder pain for a total of 1 visit(s). Discharge Date: 08/09/21 Please see the following information for a summary of their discharge status. Goal 1:: I HEP Goal 2:: Increase FGA by 5 points to decrease fall risk (score was 15 at time of the eval) Goal 3:: Increase B pain free UE AROM (at time of eval: UE AROM: R shoulder Flexion approx 120 degrees and L flexion approx 150 degrees, R abd approx 120 degrees and started with pain but could go to approx 160 degrees, and L shld abd 160 degrees, R IR to PSIS and L IR to L1.... with increase pain on the R, R ER 20 degrees and L ER 32 degrees). Goal 4:: Increase LE strength by 1/2 muscle grade (at time of the eval: LE MMT: R hip flex 4-/5 and L 4/5, R knee ext 4/5 and L knee ext 4-/5, R knee flex 4/5 and L knee flex 4-/5, R hip abd 3+/5 and L hip abd 4/5, pt is able to due a 3/4 normal ROM bridge). Plan: 2X/ week starting with 30 min and progressing to 60 for B shoulder AROM, stretching, strengthening, scapular strength, gait training, balance, dual tasking for PD, with HEP. HEP: B shoulder supine wand flexion and seated opp arm and leg Discharge Comments: DC PT due to COVID If there are questions or concerns regarding this patient's physical therapy, please feel free to call me at [phone]. Thank you for the referral of this patient. Sincerely, Nona Wilcox, MPT Balance/Gait/Functional tests - Balance/Special Test Scores Functional Gait Assessment Score: 15 % Disability: 50.0000 Quick DASH Score: 43.1800
== END 2021-07-27 19:00 | disposition home or self-care (01) ==
LOC: PT 11:14
PROVIDERS: PCP Family Medicine; Referring Provider Psychiatry & Neurology Neurology; Visit Provider Psychiatry & Neurology Neurology
DX: G20 Parkinson's disease (principal); G89.29 Other chronic pain; M25.512 Pain in left shoulder
CPT/HCPCS: 97162

== ENCOUNTER → 2021-11-01 15:11 | Outpatient (CLI) | payer MEDICARE, OTHER, SELFPAY ==
[2021-11-01 16:57] LABS: PSA,Total- Diagnostic 7.71 ng/mL (0.0-4.0)
[2021-11-03 13:13] LABS: PSA, Free 1.94 ng/mL; PSA, Free % 27.3 % (.); PSA, Total Ultrasensitive 7.1 ng/mL (0.0-4.0)
== END ==
PROVIDERS: PCP Family Medicine; Visit Provider Urology
DX: R97.20 Elevated prostate specific antigen [PSA] (principal)
CPT/HCPCS: 36415; 84153; 84154

== ENCOUNTER 2022-07-01 21:57 | Observation (INO) | payer MEDICARE, OTHER, SELFPAY ==
[2022-07-01 21:59] VITALS: BP 139/73; PULSE 73; RESP 15; TEMP 36.6; O2SAT 97; BMI 29.5
[2022-07-01 22:05] VITALS: BP 162/68; PULSE 71; RESP 18; O2SAT 98
--- NOTE | 2022-07-01 22:05 | EKG12_ITS ---
Test Reason : Blood Pressure : / mmHG Vent. Rate : 074 BPM Atrial Rate : 074 BPM P-R Int : 186 ms QRS Dur : 090 ms QT Int : 402 ms P-R-T Axes : 059 029 041 degrees QTc Int : 446 ms Normal sinus rhythm Minimal voltage criteria for LVH, may be normal variant ( Sokolow-Richter ) Nonspecific ST abnormality Abnormal ECG Confirmed by DINESH STARKS, LUIS ([id number]), editorial specialist DEE DEE POLLOCK ([id number]) on 07/03/2022 1:17:16 PM Referred By: Confirmed By:LUIS MONTIEL MD
--- NOTE | 2022-07-01 22:05 | CT_ITS ---
STUDY: CT HEAD STROKE PROTOCOL W/O CONTRAST INJECTION REASON FOR EXAM: Male, 82 years old. Neuro deficit, acute, stroke suspected RADIATION DOSAGE (If Supplied By Facility): CTDIvol = ( ) mGy, DLP = ( ) mGycm TECHNIQUE: Transaxial CT imaging of the brain was performed without administration of intravenous contrast material. Individualized dose optimization techniques were used for this CT. COMPARISON: 06/21/2021 FINDINGS: Normal soft tissue structures. Normal calvarium. There is mild cerebral atrophy with widening of the extra-axial spaces and ventricular dilatation. There are areas of decreased attenuation within the white matter tracts of the supratentorial brain, consistent with microvascular disease changes. Normal basal ganglia and thalami. Normal brainstem. Normal cerebellum. There is no intracranial hemorrhage. There are no findings of an acute ischemic infarction. Normal visualized paranasal sinuses. ASPECT score: CT/STROKE Brain/Head without Cont IMPRESSION: Chronic involutional changes of the brain. N.B. : The above Results were Read Back by Dwight Fountain MD to Paddy Jimenez and understanding confirmed on 07/01/2022 22:31:23 (ET). Electronically Signed: Dwight Fountain MD at 22:32 EDT ,
--- NOTE | 2022-07-01 22:05 | CT_ITS ---
STUDY: CTA HEAD AND NECK WITH CONTRAST REASON FOR EXAM: Male, 82 years old. Neuro deficit, acute, stroke suspected RADIATION DOSAGE (If Supplied By Facility): CTDIvol = ( ) mGy, DLP = ( ) mGycm TECHNIQUE: CT angiography was performed with a multi-detector CT scanner. Data acquisition was obtained from the skull base through the vertex following intravenous administration of IV 100mL [id number]-[id number]. MIP images were reconstructed from the axial data set. Post-processing of the angiographic images was performed, with multiplanar reformation and 3D reconstruction. Individualized dose optimization techniques were used for this CT. COMPARISON: No relevant priors. FINDINGS: Normal bilateral petrous carotid arteries. Normal right cavernous carotid artery with a normal supraclinoid bifurcation. Normal left cavernous carotid artery with a normal supraclinoid bifurcation. Normal right A1 segments of the anterior cerebral artery. Normal left A1 segments of the anterior cerebral artery. Normal intact anterior communicating artery (ACOM). Normal bilateral A2 segments of the anterior cerebral arteries. Normal right M1 and M2 segments of the middle cerebral arteries, with a normal M1 bifurcation. Normal left M1 and M2 segments of the middle cerebral arteries, with a normal M1 bifurcation. There is a persistent origin of the right posterior cerebral artery with absence of the posterior communicating artery (PCOM). Normal left posterior communicating artery (PCOM). There is a small atretic right vertebral artery with a dominant left vertebral artery. Normal basilar artery with a normal basilar bifurcation. The visualized bilateral superior cerebellar (SCA) arteries are normal. Normal bilateral P1, P2 and visualized P3 segments of the posterior cerebral arteries. There is no demonstrated aneurysm of the ambler of [place]. There is no demonstrated abnormality of the visualized brain. AORTIC ARCH: Normal visualized aortic arch. Normal origins of the brachiocephalic, left common carotid, and left subclavian arteries. RIGHT CAROTID ARTERIES: Normal right common carotid artery (CCA). Normal right common carotid bulb. Normal origin of the right internal carotid (ICA) artery without a hemodynamically significant stenosis. Normal visualized cervical portion of the right internal carotid artery. Normal origin of the right external carotid artery (ECA). LEFT CAROTID ARTERIES: Normal left common carotid artery (CCA). Normal left common carotid bulb. Normal origin of the left internal carotid (ICA) artery without a hemodynamically significant stenosis. Normal visualized cervical portion of the left internal carotid artery. Normal origin of the left external carotid artery (ECA). VERTEBRAL ARTERIES: There is enhancement within the bilateral vertebral arteries with a small right vertebral artery, and a dominant left vertebral artery. CT/STROKE CTA Head AND Neck W/Con IMPRESSION: Normal CTA Head and neck with contrast. N.B. : The above Results were Read Back by Dwight Fountain MD to Paddy Jimenez and understanding confirmed on 07/01/2022 22:57:50 (ET). Electronically Signed: Dwight Fountain MD at 22:59 EDT ,
--- NOTE | 2022-07-01 22:06 | ED.VIS.STROK ---
HPI History of Present Illness Chief Complaint: Neuro S/Sx Informant: patient and family Narrative Narrative: Patient seen out in triage initially as a walk-in for concerns for stroke symptoms. Half hour ago [id number], this patient having trouble getting his words out. They were fishing earlier, state he was not feeling well possibly 90 minutes ago report had dizziness and a fall. No trauma from fall. Was talking normally. Went home half hour ago trouble with words. No stroke history. He is on baby aspirin. He does have Lewy body dementia working diagnosis additional Parkinson's with chronic upper extremity tremors. Patient normally talks normal per son. History of pacemaker from sick sinus syndrome placed in 2015. Reported cystoscopy performed this past Sunday with no surgical interventions. He is currently on Cipro for prophylaxis. Son reported previously from an antibiotic with Augmentin he had confusion from it therefore was placed as an allergy. [facility] Medical History (Updated 07/02/22 @ 01:[address] Paddy Jimenez, DO) Anxiety and depression Ryder's esophagus BPH (benign prostatic hyperplasia) CPAP (continuous positive airway pressure) dependence Essential (primary) hypertension GERD (gastroesophageal reflux disease) Hyperlipidemia Hypothyroidism Lewy body dementia Migraines Narcolepsy Obstructive sleep apnea Pacemaker Parkinson's disease Patent foramen ovale Post-polio syndrome SSS (sick sinus syndrome) TIA (transient ischemic attack) Vasovagal syncope Home Medications levothyroxine 88 mcg tablet 88 mcg PO DAILY thyroid 04/14/18 [History Last Taken Unknown] tamsulosin 0.4 mg capsule 0.4 mg PO DAILY prostate 04/14/18 [History Last Taken Unknown] aspirin 81 mg chewable tablet 81 mg PO DAILY@0800 ##30 12/30/18 [Rx Last Taken Unknown] testosterone cypionate 100 mg/mL intramuscular oil 200 mg IM Q3W hormones 01/08/19 [History Last Taken Unknown] esomeprazole magnesium 40 mg capsule,delayed release 40 mg PO DAILY reflux 05/04/20 [History Last Taken Unknown] cholecalciferol (vitamin D3) 50 mcg (2,000 unit) tablet 25 mcg PO DAILY 06/01/21 [History Last Taken Unknown] citalopram 20 mg tablet 20 mg PO DAILY 06/01/21 [History Last Taken Unknown] loratadine 10 mg tablet 10 mg PO DAILY 06/01/21 [History Last Taken Unknown] wheat dextrin 3 gram/3.5 gram oral powder packet (Benefiber Clear Sugar Free(dextrin)) 1.5 g PO TID 06/01/21 [History Last Taken Unknown] atorvastatin 40 mg tablet 40 mg PO QHS #90 tabs 06/06/22 [Rx Last Taken Unknown] ciprofloxacin HCl 500 mg tablet (Cipro) 500 mg PO BID 07/01/22 [History Last Taken Unknown] Allergy/AdvReac Type Severity Reaction Status Date / Time amoxicillin Allergy Severe Convulsions, Verified 07/02/22 00:54 SOB, Hallucinations clavulanic acid Allergy Severe Convulsions, Verified 07/02/22 00:55 [From Augmentin] SOB, Hallucinations Family History Father Heart disease Brother Heart disease Mother Heart disease Surgical History (Updated 07/02/22 @ 01:[address] Paddy Jimenez DO) History of left heart catheterization (02/2016) History of permanent cardiac pacemaker placement (03/03/16) History of thyroidectomy Social History Smoking Status: Never smoker alcohol intake: current alcohol intake frequency: a few times a month substance use type: does not use caffeine: Yes Type: carbonated beverages and coffee ROS ROS ED Constitutional Constitutional ED: Denies chills, fever(s) or sweats Eyes Eyes: Denies change in vision ENT ENT ED: Denies dysphagia or sore throat Cardiovascular Cardiovascular: Denies chest pain, leg edema, palpitations or racing heartbeat Respiratory/Chest Respiratory/Chest: Denies cough, dyspnea or dyspnea on exertion Gastrointestinal Gastrointestinal: Denies abdominal pain, diarrhea, nausea or vomiting Genitourinary Genitourinary ED: Denies dysuria, hematuria or urinary frequency Musculoskeletal Musculoskeletal: Denies back pain, extremity pain or neck pain Integumentary Denies rash or wounds Neurologic Neurologic: Reports other Details: Trouble with speech. ; Denies headache(s), paresthesias or weakness EXAM Physical Exam Const Vital Signs: 07/01/22 21:59 07/01/22 22:16 07/01/22 22:05 Temperature 97.9 F Temperature Source Temporal Pulse Rate 73 71 Respiratory Rate 15 18 Blood Pressure 139/73 H 162/68 H Blood Pressure Mean 95 99 Pulse Ox 97 98 Oxygen Delivery Method Room Air Room Air Room Air 07/01/22 22:35 07/01/22 23:05 07/01/22 23:30 Temperature 97.9 F Temperature Source Temporal Pulse Rate 67 60 60 Respiratory Rate 18 24 H 16 Blood Pressure 159/70 H 159/72 H 159/69 H Blood Pressure Mean 99 101 99 Pulse Ox 98 97 95 Oxygen Delivery Method Room Air Room Air Room Air Positive well nourished and well developed Constitutional Narrative: Stuttering slow speech, new per son. General Appearance ED: well developed and NAD HEENT Reports moist mucous membranes normocephalic and atraumatic Eyes PERRL, EOMs intact bilaterally and conjunctivae normal General Eye ED: Yes normal appearance of both eyes Neck no lymphadenopathy and supple General: Negative for tenderness Chest Wall Chest: Negative for tenderness Resp normal respiratory effort and normal air movement Effort and Inspection: symmetric chest movement; Negative for respiratory distress Cardio regular rate, regular rhythm and no murmurs Peripheral Pulses: pulses 2+ throughout GI normal to inspection, nondistended, normoactive bowel sounds and non-tender Palpation: Negative for guarding or rebound tenderness present Back/Spine no CVA tenderness and no thoracic nor lumbar tenderness Extremity normal to inspection General Extremety ED: Negative for edema or tenderness General Extremity: Negative for edema Neuro Neuro Narrative: Patient with active tremors of upper extremities. Sensorium / Orientation: awake and alert Skin no rashes or lesions noted and no wounds STROKE Vital Signs/Narrative: Vital Signs Temp Pulse Resp BP Pulse Ox O2 Del Method 07/01/22 23:30 97.9 F 60 16 159/69 H 95 Room Air 07/01/22 23:05 60 24 H 159/72 H 97 Room Air 07/01/22 22:35 67 18 159/70 H 98 Room Air 07/01/22 22:05 71 18 162/68 H 98 Room Air 07/01/22 22:16 Room Air 07/01/22 21:59 97.9 F 73 15 139/73 H 97 Room Air Inital Vital Signs reviewed: Yes NIHSS Initial: 1a Level of Consciousness: 0 1b LOC Questions (Score 2 if aphasic/stupor): 1 1c LOC Commands (Only score 1st attempt): 0 2 Best Gaze (If aphasic, use reflexive mvmts.): 0 3 Visual: 0 4 Facial Palsy: 1 5 Motor Arm Right (UN = amputation/fusion): 0 5 Motor Arm Left: 0 6 Motor Leg Right: 0 6 Motor Leg Left: 0 7 Limb ataxia (Only + if out of proportion): 1 8 Sensory (Aphasia/stupor=0 or 1, coma=2): 0 9 Best Language: 1 10 Dysarthria (mute, coma=2, intubated=UN): 1 11 Extinction and Inattention (only scored if +): 0 Total Score: 5 MDM MDM MDM Narrative Medical decision making narrative: Stroke team was activated due to onset of symptoms with new dysarthria. NIH of 5 however there is some chronic component with ataxia with his tremors history. CT head and CTA discussed with radiology returned negative. Upon returning from CAT scan his speech was improving more at baseline. He was eval by stroke neurologist feels with improving symptoms recommend tPA specially with speech improving. He has a pacemaker. Therefore recommended repeat CT in the morning with an echocardiogram. Urine was added due to reported cystoscopy. Urine noted signs of infection culture sent he is asymptomatic. Currently on Cipro. I discussed with hospitalist, Dr. Orr for admission to PCU. Lab Data Attestation: I reviewed the patient's lab results. Labs: Laboratory Results - last 24 hr 07/01/22 07/01/22 07/01/22 22:05 22:05 22:05 WBC 11.1 H RBC 5.22 Hgb 14.9 Hct 46.3 MCV 88.7 MCH 28.5 MCHC 32.2 RDW Std Deviation 45.6 H RDW Coeff of Paulo 14.0 Plt Count 245 MPV 10.9 Immature Gran % (Auto) 0.400 Neut % (Auto) 79.9 H Lymph % (Auto) 11.8 L [place] % (Auto) 7.0 Eos % (Auto) 0.6 Baso % (Auto) 0.3 Absolute Neuts (auto) 8.8 H Absolute Lymphs (auto) 1.31 Nucleated RBC % 0 PT 13.3 INR 1.0 APTT 27.2 Sodium 136 Potassium 4.9 Chloride 105 Carbon Dioxide 27.0 Anion Gap 4 L BUN 12 Creatinine 1.60 H Estim Creat Clear Calc 36.82 Est GFR (MDRD) Af Amer 54 L Est GFR (MDRD) Non-Af 44 L BUN/Creatinine Ratio 7.5 L Glucose 144 H Calcium 9.9 Troponin I High Sens 8 TSH Urine Color Urine Clarity Urine pH Ur Specific [place] Urine Protein Urine Glucose (UA) Urine Ketones Urine Occult Blood Urine Nitrite Urine Bilirubin Urine Urobilinogen Ur Leukocyte Esterase Urine RBC Urine WBC Ur Squamous Epith Cells Urine Bacteria Urine Mucus 07/01/22 07/01/22 22:05 22:55 WBC RBC Hgb Hct MCV MCH MCHC RDW Std Deviation RDW Coeff of Paulo Plt Count MPV Immature Gran % (Auto) Neut % (Auto) Lymph % (Auto) [place] % (Auto) Eos % (Auto) Baso % (Auto) Absolute Neuts (auto) Absolute Lymphs (auto) Nucleated RBC % PT INR APTT Sodium Potassium Chloride Carbon Dioxide Anion Gap BUN Creatinine Estim Creat Clear Calc Est GFR (MDRD) Af Amer Est GFR (MDRD) Non-Af BUN/Creatinine Ratio Glucose Calcium Troponin I High Sens TSH 0.46 Urine Color Yellow Urine Clarity Sl. Cloudy Urine pH 6.0 Ur Specific [place] 1.010 Urine Protein 30 H Urine Glucose (UA) Normal Urine Ketones Negative Urine Occult Blood 10 H Urine Nitrite Negative Urine Bilirubin Negative Urine Urobilinogen Normal Ur Leukocyte Esterase 500 H Urine RBC 0-5 SEEN Urine WBC 10-25 SEEN Ur Squamous Epith Cells 0 SEEN Urine Bacteria 1+ Urine Mucus 0 SEEN Radiography Diagnostic Testing: Clinical Impression(s) from Imaging Studies Brain CT 07/01/22 22:05 IMPRESSION: Chronic involutional changes of the brain. N.B. : The above Results were Read Back by Dwight Fountain MD to Paddy Jimenez and understanding confirmed on 07/01/2022 22:31:23 (ET). Electronically Signed: Dwight Fountain MD at 22:32 EDT Reading Location ID and State: [id number] / [employer] , Service support , ADDENDUM: 07/01/229 IMPRESSION: Chronic involutional changes of the brain. N.B. : The above Results were Read Back by Dwight Fountain MD to Paddy Jimenez and understanding confirmed on 07/01/2022 22:31:23 (ET). Electronically Signed: Dwight Fountain MD at 22:32 EDT Reading Location ID and State: [id number] / [employer] , Service support , Head/Neck CTA 07/01/22 22:05 IMPRESSION: Normal CTA Head and neck with contrast. N.B. : The above Results were Read Back by Dwight Fountain MD to Paddy Jimenez and understanding confirmed on 07/01/2022 22:57:50 (ET). Electronically Signed: Dwight Fountain MD at 22:59 EDT Reading Location ID and State: [id number] , Service support , ADDENDUM: 07/01/22 2305 IMPRESSION: Normal CTA Head and neck with contrast. N.B. : The above Results were Read Back by Dwight Fountain MD to Paddy Jimenez and understanding confirmed on 07/01/2022 22:57:50 (ET). Electronically Signed: Dwight Fountain MD at 22:59 EDT Reading Location ID and State: [id number] / [employer] , Service support , Chest X-Ray 07/01/22 23:00 IMPRESSION: No active disease. Electronically Signed: Dwight Fountain MD at 23:10 EDT Reading Location ID and State: [email or web address] / [employer] , Service support , Critical Care Time Critical Care Time: Yes Critical care time (excluding procedures): 30-74 minutes, Discussing w/Patient &/or Family/[employer]ice [employer], Discussing w/Consultants, Arranging Admission or Transfer, Performing Direct Patient Care at Bedside and - (35 minutes) Discharge Plan Dx/Rx/DC Orders Clinical Impression: Dysarthria, SSS (sick sinus syndrome), History of permanent cardiac pacemaker placement, Lewy body dementia Disposition Disposition: Acute Care Hospital [facility] Discharge Date/Time: 07/02/22 00:28
[2022-07-01 22:21] VITALS: BMI 28.7
[2022-07-01 22:24] LABS: Absolute Lymphocyte Count 1.31 X10^3/uL (0.83-4.51); Absolute Neutrophil Count 8.8 X10^3/uL (2.0-7.7); Basophil# 0.03 X10^3/uL; Basophil% 0.3 % (0-1); Eosinophil# 0.07 X10^3/uL; Eosinophils% 0.6 % (0-5); Hematocrit 46.3 % (40-54); Hemoglobin 14.9 g/dL (13.0-16.5); Lymphocyte # 1.31 X10^3/ul (0.83-4.51); Lymphocyte % 11.8 % (19-41); Mean Corp Hgb Conc 32.2 g/dL (32-36); Mean Corpuscular Hgb 28.5 pg (27.0-32.0); Mean Corpuscular Volume 88.7 fL (80-94); Mean Platelet Vol. 10.9 fl (6.2-12.0); Monocyte# 0.78 X10^3/uL; NRBC Flagged by Analyzer 0 % (0-5); Neutrophil # 8.84 X10^3/uL (2.7-7.7); Neutrophil % 79.9 % (47-70); Platelet Count 245 K/mm3 (150-450); RBC Distribution Width SD 45.6 fl (35.1-43.9); Red Blood Count 5.22 M/mm3 (4.6-6.2); White Blood Count 11.1 K/mm3 (4.4-11.0)
--- NOTE | 2022-07-01 22:24 | ED.RN ---
[facility] paging neurologist and states they will call us back
[2022-07-01 22:27] LABS: Prothrombin Time (Protime)PT. 13.3 SECONDS (11.7-14.9)
[2022-07-01 22:29] LABS: Partial Thromboplast Time 27.2 Seconds (24.1-36.2)
[2022-07-01 22:35] VITALS: BP 159/70; PULSE 67; RESP 18; O2SAT 98
[2022-07-01 22:37] LABS: Anion Gap 4 (5-15); BUN 12 mg/dL (7-18); BUN/Creat Ratio 7.5 RATIO (10-20); Calcium,Total 9.9 mg/dL (8.5-10.1); Chloride 105 mmol/L (98-107); EST Glomerular Filtration Rate 44 mL/min (>60); Est Glom Filt Rate - Afr Amer 54 mL/min (>60); Estimated Creatinine Clearance 36.82 ml/min; Glucose 144 mg/dL (74-106); Potassium 4.9 mmol/L (3.5-5.1); Sodium Level 136 mmol/L (136-145); Troponin-I HS 8 pg/mL (3.0-78.0)
[2022-07-01 22:58] LABS: Mucous, Urine 0 SEEN /hpf (<or=2+); Squamous Epithelial Cells - UA 0 SEEN /hpf (0-5)
--- NOTE | 2022-07-01 23:00 | RAD_ITS ---
STUDY: X-RAY CHEST REASON FOR EXAM: Male, 82 years old. Neuro deficit, acute, stroke suspected TECHNIQUE: Single AP portable view of the chest. COMPARISON: 06/21/2021 FINDINGS: Left subclavian pacemaker. The lungs are clear and expanded. There is no demonstrated pleural abnormality. Normal size heart. Normal mediastinum and jorge. Normal visualized pulmonary arteries. Normal visualized aortic arch and descending thoracic aorta. Normal visualized thoracic spine. Normal visualized ribs, clavicles, and shoulders. There is no demonstrated abnormality of the visualized soft tissue structures of the upper abdomen. RAD/Chest 1 View IMPRESSION: No active disease. Electronically Signed: Dwight Fountain MD at 23:10 EDT ,
[2022-07-01 23:05] VITALS: BP 159/72; PULSE 60; RESP 24; O2SAT 97
[2022-07-01 23:22] LABS: Color, Urine Yellow (Yellow); Glucose, Dipstick Normal (Normal); Ketone-Dipstick Negative (Negative); Leukocyte Esterase-Dipstick 500 /ul (Negative); Nitrite-Dipstick Negative (Negative); Occult Blood-Urine 10 /ul (Negative); Protein-Dipstick 30 mg/dl (Negative); Urine Bilirubin Dipstick Negative (Negative); Urine Clarity Sl. Cloudy (Clear); Urine Urobilinogen Normal (Normal)
[2022-07-01 23:28] LABS: Bacteria 1+ /hpf (None Seen); Red Blood Cells-Urine 0-5 SEEN /hpf (0-5); White Blood Cells 10-25 SEEN /hpf (0-5)
[2022-07-01 23:30] VITALS: BP 159/69; PULSE 60; RESP 16; TEMP 36.6; O2SAT 95
--- NOTE | 2022-07-01 23:47 | HP.PCM.HOS_ITS ---
HPI - General General Date of Admission: 07/01/22 Date of Service: 07/01/22 Chief Complaint: Word finding difficulty - 1 day HPI Narrative CARLENE IRWIN, is a 82 M who presents with the above. Patient is an 82-year-old male with past medical history of Lewy body dementia, hypertension who recently had a cystoscopy done in Dr. Gu's office. Patient stated that he had dysuria, frequency and lower abdominal discomfort after the procedure. He was discharged with oral Cipro. He had gone fishing with his family. He did not feel well, felt dizzy after a while, could not stand, fell, did not hit his head, seen to have trouble speaking. He was rushed to the emergency room when his son carried him to the car. He has had similar episodes like this before. This is her third episode. The previous 2 were related to infections; dental infection versus referral to Augmentin allergy. He stated that he seems to be getting better as he was in the emergency room. He was slowly able to talk. Patient was seen by teleneurology and felt not to be a tPA candidate as he appeared almost recovered at the time he was being seen. Vitals in the ED showed blood pressure 153/83, heart rate 87, SPO2 was 95% on room air, temperature 97.7 F. WBC count 11.1, hemoglobin 14.9, platelet count 245. INR 1.0. Sodium 136, potassium 4.9, chloride 105, bicarbonate 27, BUN 12, creatinine 1.60, previous creatinine a year ago was 1.27. UA was slightly cloudy, nitrite negative, leukocyte esterase 500, +1 bacteria, 10-20 WBCs. \ Initial brain CT showed chronic ambulatory changes. CT of the head is unremarkable. Chest x-ray is negative. COUNTS INCLUDE 234 BEDS AT THE [facility] Medical History Anxiety and depression Ryder's esophagus BPH (benign prostatic hyperplasia) CPAP (continuous positive airway pressure) dependence Essential (primary) hypertension GERD (gastroesophageal reflux disease) Hyperlipidemia Hypothyroidism Lewy body dementia Migraines Narcolepsy Obstructive sleep apnea Pacemaker Parkinson's disease Patent foramen ovale Post-polio syndrome SSS (sick sinus syndrome) TIA (transient ischemic attack) Vasovagal syncope Home Medications levothyroxine 88 mcg tablet 88 mcg PO DAILY thyroid 04/14/18 [History Last Taken Unknown] tamsulosin 0.4 mg capsule 0.4 mg PO DAILY prostate 04/14/18 [History Last Taken Unknown] aspirin 81 mg chewable tablet 81 mg PO DAILY@0800 ##30 12/30/18 [Rx Last Taken Unknown] testosterone cypionate 100 mg/mL intramuscular oil 200 mg IM Q3W hormones 01/08/19 [History Last Taken Unknown] esomeprazole magnesium 40 mg capsule,delayed release 40 mg PO DAILY reflux 05/04/20 [History Last Taken Unknown] cholecalciferol (vitamin D3) 50 mcg (2,000 unit) tablet 25 mcg PO DAILY 06/01/21 [History Last Taken Unknown] citalopram 20 mg tablet 20 mg PO DAILY 06/01/21 [History Last Taken Unknown] loratadine 10 mg tablet 10 mg PO DAILY 06/01/21 [History Last Taken Unknown] wheat dextrin 3 gram/3.5 gram oral powder packet (Benefiber Clear Sugar Free(dextrin)) 1.5 g PO TID 06/01/21 [History Last Taken Unknown] atorvastatin 40 mg tablet 40 mg PO QHS #90 tabs 06/06/22 [Rx Last Taken Unknown] ciprofloxacin HCl 500 mg tablet (Cipro) 500 mg PO BID 07/01/22 [History Last Taken Unknown] Allergy/AdvReac Type Severity Reaction Status Date / Time amoxicillin Allergy Severe Convulsions, Verified 07/02/22 00:54 SOB, Hallucinations clavulanic acid Allergy Severe Convulsions, Verified 07/02/22 00:55 [From Augmentin] SOB, Hallucinations Family History Father Heart disease Brother Heart disease Mother Heart disease Surgical History History of left heart catheterization (02/2016) History of permanent cardiac pacemaker placement (03/03/16) History of thyroidectomy Social History (Updated 07/02/22 @ 04:[address] Yulia Orr MD) household members: family Smoking Status: Never smoker alcohol intake: current alcohol intake frequency: a few times a month substance use type: does not use caffeine: Yes Type: carbonated beverages and coffee ROS ROS Narrative Constitutional: Reports: Malaise, Weakness, Fatigue. Denies: Anorexia, Chills, Fever, Night Sweats, Weight Change Eyes: Denies: Blurred vision, Cataracts, Conjunctivae Inflammation, Pain, Redness, Vision Change HEENT: Denies: Difficulty Hearing, Difficulty Swallowing, Head Aches, Hearing Changes, Sinus Congestion, Sinus Drainage Cardiovascular: Denies: Chest Pain, Orthopnea, Palpitations Respiratory: Denies: Cough, Shortness of breath at rest, Sputum production Gastrointestinal: Denies: Abdominal Pain, Nausea, Vomiting Genitourinary: See HPI Musculoskeletal: Denies: Joint Pain, Joint stiffness, Joint swelling, Joint Tenderness Skin: Denies: Rash, Wounds Neurological: See HPI Vital Signs Vital Signs Vital Signs: 07/01/22 21:59 07/01/22 22:16 07/01/22 22:05 Temperature 97.9 F Temperature Source Temporal Pulse Rate 73 71 Respiratory Rate 15 18 Blood Pressure 139/73 H 162/68 H Blood Pressure Mean 95 99 Pulse Ox 97 98 Oxygen Delivery Method Room Air Room Air Room Air 07/01/22 22:35 07/01/22 23:05 Temperature Temperature Source Pulse Rate 67 60 Respiratory Rate 18 24 H Blood Pressure 159/70 H 159/72 H Blood Pressure Mean 99 101 Pulse Ox 98 97 Oxygen Delivery Method Room Air Room Air Weight Weight: 88.3 kg Body Mass Index (BMI) 28.7 Physical Exam Narrative Physical exam: General: Alert, Oriented x2/3, not to year, Cooperative, No apparent distress HEENT: Atraumatic Oral: Moist Mucosa Neck: Supple Lungs:Diminished to auscultation Cardiovascular: HS I+II, regular, no murmurs Abdomen: Bowel Sounds Present, Soft, Non Tender Extremities: No edema Skin: No rashes, No breakdown Neurological:CN II-XII intact, decreased sensation to touch on right side of face and upper extremity, power is 5/5 in all extremities, normal tone, right upper extremity resting tremor Psych/Mental Status: Appropriate Results Lab / Micro Data Result Diagrams: 07/01/22 22:05 07/01/22 22:05 Labs: Laboratory Results - last 24 hr 07/01/22 22:05: WBC 11.1 H, RBC 5.22, Hgb 14.9, Hct 46.3, MCV 88.7, MCH 28.5, MCHC 32.2, RDW Std Deviation 45.6 H, RDW Coeff of Paulo 14.0, Plt Count 245, MPV 10.9, Immature Gran % (Auto) 0.400, Neut % (Auto) 79.9 H, Lymph % (Auto) 11.8 L, Luce % (Auto) 7.0, Eos % (Auto) 0.6, Baso % (Auto) 0.3, Absolute Neuts (auto) 8.8 H, Absolute Lymphs (auto) 1.31, Nucleated RBC % 0 07/01/22 22:05: PT 13.3, INR 1.0, APTT 27.2 07/01/22 22:05: Sodium 136, Potassium 4.9, Chloride 105, Carbon Dioxide 27.0, Anion Gap 4 L, BUN 12, Creatinine 1.60 H, Estim Creat Clear Calc 36.82, Est GFR (MDRD) Af Amer 54 L, Est GFR (MDRD) Non-Af 44 L, BUN/Creatinine Ratio 7.5 L, Glucose 144 H, Calcium 9.9, Troponin I High Sens 8 07/01/22 22:55: Urine Color Yellow, Urine Clarity Sl. Cloudy, Urine pH 6.0, Ur Specific [place] 1.010, Urine Protein 30 H, Urine Glucose (UA) Normal, Urine Ketones Negative, Urine Occult Blood 10 H, Urine Nitrite Negative, Urine Bilirubin Negative, Urine Urobilinogen Normal, Ur Leukocyte Esterase 500 H, Urine RBC 0-5 SEEN, Urine WBC 10-25 SEEN, Ur Squamous Epith Cells 0 SEEN, Urine Bacteria 1+, Urine Mucus 0 SEEN Radiology Impression Brain CT 07/01/22 22:05 IMPRESSION: Chronic involutional changes of the brain. N.B. : The above Results were Read Back by Dwight Fountain MD to Paddy Jimenez and understanding confirmed on 07/01/2022 22:31:23 (ET). Electronically Signed: Dwight Fountain MD at 22:32 EDT , ADDENDUM: 07/01/22 0816 IMPRESSION: Chronic involutional changes of the brain. N.B. : The above Results were Read Back by Dwight Fountain MD to Paddy Jimenez and understanding confirmed on 07/01/2022 22:31:23 (ET). Electronically Signed: Dwight Fountain MD at 22:32 EDT Reading Location ID and State: [id number] / [employer] Tel , Service support , Head/Neck CTA 07/01/22 22:05 IMPRESSION: Normal CTA Head and neck with contrast. N.B. : The above Results were Read Back by Dwight Fountain MD to Paddy Jimenez and understanding confirmed on 07/01/2022 22:57:50 (ET). Electronically Signed: Dwight Fountain MD at 22:59 EDT Reading Location ID and State: [employer] Tel , Service support , ADDENDUM: 07/01/22 2305 IMPRESSION: Normal CTA Head and neck with contrast. N.B. : The above Results were Read Back by Dwight Fountain MD to Paddy Jimenez and understanding confirmed on 07/01/2022 22:57:50 (ET). Electronically Signed: Dwight Fountain MD at 22:59 EDT Reading Location ID and State: [employer] Tel , Service support , Chest X-Ray 07/01/22 23:00 IMPRESSION: No active disease. Electronically Signed: Dwight Fountain MD at 23:10 EDT Reading Location ID and State: [id number] / [employer] Tel , Service support , Assessment & Plan Assessment/Plan (1) Near syncope: PLAN: Plan 1. Acute onset of word finding difficulty likely secondary to TIA versus acute metabolic encephalopathy This appears to be improving was in the emergency room Not a tPA candidate Admit to PCU, stroke work-up, PT/OT/ST, MRI brain (patient has a pacemaker, recently had an MRI couple weeks ago) Continue prophylaxis for postprocedure UTI with oral Cipro Follow-up on current urine culture 2. Recent cystoscopy, UTI, continue on oral cipro, reported allergy to Augmentin 3. Status post pacemaker, stable 4. Hyperlipidemia, continue on statin 6. TABATHA/narcolepsy 7. Lewy body dementia, complicates care 8. DVT ppx- Heparin SC I discussed and explained in details the various types of CODE STATUS-full code, DNR CCA, DNR CC. Patient chose full code and what aggressive cardiopulmonary resuscitation in the event of cardiopulmonary arrest. Time spent discussing CODE STATUS 16 minutes Charges/Coding Visit Charges OBSV E&M: 70416 Initial observation care L3 Procedures Hospitalists Procedures: 28145 Advncd Care Plan 30 Min
[2022-07-01 23:49] VITALS: BP 159/69; PULSE 60; RESP 16; TEMP 36.6; O2SAT 95
[2022-07-02] VITALS (18 sets, daily range): BP systolic 114–181; BP diastolic 56–87; PULSE 60–104; RESP 18–19; TEMP 36.5–37.5; O2SAT 93–95; BMI 26.9
[2022-07-02 00:40] LABS: Thyroid Stim Hormone (TSH) 0.46 uIU/mL (0.358-3.74)
[2022-07-02] MEDS: 0.9% Normal Saline 1,000 ML 75 ML IV ×2 (01:12→13:07)
[2022-07-02] MEDS: Heparin Injection (Vial) 5,000 UNIT/ML VIAL 5000 UNIT SC ×3 (05:25→21:03)
[2022-07-02] MEDS: Levothyroxine 88 MCG Tablet PO (05:25)
[2022-07-02 06:11] LABS: Absolute Neutrophil Count 6.1 X10^3/uL (2.0-7.7); Basophil# 0.03 X10^3/uL; Basophil% 0.3 % (0-1); Eosinophil# 0.17 X10^3/uL; Hematocrit 40.4 % (40-54); Hemoglobin 13.1 g/dL (13.0-16.5); Lymphocyte % 17.3 % (19-41); Mean Corp Hgb Conc 32.4 g/dL (32-36); Mean Corpuscular Hgb 28.9 pg (27.0-32.0); Mean Corpuscular Volume 89.2 fL (80-94); Monocyte# 0.87 X10^3/uL; NRBC Flagged by Analyzer 0 % (0-5); Neutrophil # 6.06 X10^3/uL (2.7-7.7); Neutrophil % 69.9 % (47-70); Platelet Count 212 K/mm3 (150-450); RBC Distribution Width CV 13.9 % (11.6-14.6); RBC Distribution Width SD 45.1 fl (35.1-43.9); Red Blood Count 4.53 M/mm3 (4.6-6.2); White Blood Count 8.7 K/mm3 (4.4-11.0)
[2022-07-02 06:49] LABS: ALB/GLOB Ratio 1.1 RATIO (0.9-2.4); AST(SGOT) 17 U/L (15-37); Alanine Aminotransfer ALT/SGPT 22 U/L (16-61); Alkaline Phosphatase 89 U/L (45-117); Anion Gap 5 (5-15); BUN 10 mg/dL (7-18); BUN/Creat Ratio 8.5 RATIO (10-20); Calcium,Total 8.7 mg/dL (8.5-10.1); Chloride 105 mmol/L (98-107); Cholesterol 80 mg/dL (200); Creatinine, Serum 1.18 mg/dL (0.70-1.30); EST Glomerular Filtration Rate 63 mL/min (>60); Est Glom Filt Rate - Afr Amer 76 mL/min (>60); Estimated Creatinine Clearance 51.55 ml/min; Globulin 2.8 g/dL (2.2-4.2); Glucose 88 mg/dL (74-106); High Density Lipoprotein 46 mg/dL; Potassium 3.8 mmol/L (3.5-5.1); Protein, Total 5.8 g/dL (6.4-8.2); Sodium Level 137 mmol/L (136-145); Triglycerides 74 mg/dL; Very Low Density Lipoprotein 15 mg/dL (5-40)
--- NOTE | 2022-07-02 08:08 | NURSING ---
Called CT to have MRI staff come in to do MRI. Yari from MRI called back to inform RN that pt has a pacemaker, requested copy of pacemaker card be faxed to MRI, and that MRI could not be done until tomorrow d/t needing to coordinate with a pacemaker rep. Primary RN aware, family to bring in pacemaker card.
[2022-07-02] MEDS: Cholecalciferol (VIT D3) 25 MCG TABLET (1,000 UNITS) PO (09:35)
[2022-07-02] MEDS: Pantoprazole Sodium 40 MG Tablet PO (09:35)
[2022-07-02] MEDS: Ciprofloxacin 500 MG Tablet PO ×2 (09:35→21:01)
[2022-07-02] MEDS: Aspirin 81 MG TAB.CHEW PO (09:35)
[2022-07-02] MEDS: Tamsulosin HCl 0.4 MG Capsule PO (09:35)
[2022-07-02] MEDS: Citalopram 20 MG Tablet PO (09:35)
--- NOTE | 2022-07-02 13:19 | PCM.PN.HOSP ---
Subjective Subjective Patient was seen and examined today, he has no evidence of slurred speech or focal neurological deficits. Objective Data Objective Data Vital Signs: Vital Signs Temp Pulse Resp BP Pulse Ox O2 Del Method 99.0 F 71 18 155/56 H 94 Room Air 07/02/22 13:00 07/02/22 13:00 07/02/22 13:00 07/02/22 13:00 07/02/22 13:00 07/02/22 13:00 Oxygen Delivery Method Room Air Weight: 85.2 kg Body Mass Index (BMI) 26.9 Intake & Output: Intake and Output for Last 24 Hours 06/30/22 07/01/22 07/02/22 23:59 23:59 23:59 Intake Total 1413.75 / 1413.75 Output Total 350 / 350 Balance 1063.75 / 1063.75 Lab / Micro Data Result Diagrams: 07/02/22 05:04 07/02/22 05:04 Labs: Laboratory Results - last 24 hr 07/01/22 22:05: WBC 11.1 H, RBC 5.22, Hgb 14.9, Hct 46.3, MCV 88.7, MCH 28.5, MCHC 32.2, RDW Std Deviation 45.6 H, RDW Coeff of Paulo 14.0, Plt Count 245, MPV 10.9, Immature Gran % (Auto) 0.400, Neut % (Auto) 79.9 H, Lymph % (Auto) 11.8 L, [place] % (Auto) 7.0, Eos % (Auto) 0.6, Baso % (Auto) 0.3, Absolute Neuts (auto) 8.8 H, Absolute Lymphs (auto) 1.31, Nucleated RBC % 0 07/01/22 22:05: PT 13.3, INR 1.0, APTT 27.2 07/01/22 22:05: Sodium 136, Potassium 4.9, Chloride 105, Carbon Dioxide 27.0, Anion Gap 4 L, BUN 12, Creatinine 1.60 H, Estim Creat Clear Calc 36.82, Est GFR (MDRD) Af Amer 54 L, Est GFR (MDRD) Non-Af 44 L, BUN/Creatinine Ratio 7.5 L, Glucose 144 H, Calcium 9.9, Troponin I High Sens 8 07/01/22 22:05: TSH 0.46 07/01/22 22:55: Urine Color Yellow, Urine Clarity Sl. Cloudy, Urine pH 6.0, Ur Specific [place] 1.010, Urine Protein 30 H, Urine Glucose (UA) Normal, Urine Ketones Negative, Urine Occult Blood 10 H, Urine Nitrite Negative, Urine Bilirubin Negative, Urine Urobilinogen Normal, Ur Leukocyte Esterase 500 H, Urine RBC 0-5 SEEN, Urine WBC 10-25 SEEN, Ur Squamous Epith Cells 0 SEEN, Urine Bacteria 1+, Urine Mucus 0 SEEN 07/02/22 05:04: WBC 8.7, RBC 4.53 L, Hgb 13.1, Hct 40.4, MCV 89.2, MCH 28.9, MCHC 32.4, RDW Std Deviation 45.1 H, RDW Coeff of [place] 13.9, Plt Count 212, MPV 11.0, Immature Gran % (Auto) 0.500, Neut % (Auto) 69.9, Lymph % (Auto) 17.3 L, [place] % (Auto) 10.0, Eos % (Auto) 2.0, Baso % (Auto) 0.3, Absolute Neuts (auto) 6.1, Absolute Lymphs (auto) 1.50, Nucleated RBC % 0 07/02/22 05:04: Sodium 137, Potassium 3.8, Chloride 105, Carbon Dioxide 27.0, Anion Gap 5, BUN 10, Creatinine 1.18, Estim Creat Clear Calc 51.55, Est GFR (MDRD) Af Amer 76, Est GFR (MDRD) Non-Af 63, BUN/Creatinine Ratio 8.5 L, Glucose 88, Calcium 8.7, Total Bilirubin 1.80 H, AST 17, ALT 22, Alkaline Phosphatase 89, Total Protein 5.8 L, Albumin 3.0 L, Globulin 2.8, Albumin/Globulin Ratio 1.1, Triglycerides 74, Cholesterol 80, LDL Cholesterol 19, VLDL Cholesterol 15, HDL Cholesterol 46 Radiography Diagnostic Testing: Radiology Impression Brain CT 07/01/22 22:05 IMPRESSION: Chronic involutional changes of the brain. N.B. : The above Results were Read Back by Dwight Fountain MD to Paddy Jimenez and understanding confirmed on 07/01/2022 22:31:23 (ET). Electronically Signed: Dwight Fountain MD at 22:32 EDT Reading Location ID and State: [id number] / [employer] Tel , Service support , ADDENDUM: 07/01/22 2239 IMPRESSION: Chronic involutional changes of the brain. N.B. : The above Results were Read Back by Dwight Fountain MD to Paddy Jimenez and understanding confirmed on 07/01/2022 22:31:23 (ET). Electronically Signed: Dwight Fountain MD at 22:32 EDT Reading Location ID and State: [id number] / [employer] Tel , Service support , Head/Neck CTA 07/01/22 22:05 IMPRESSION: Normal CTA Head and neck with contrast. N.B. : The above Results were Read Back by Dwight Fountain MD to Paddy Jimenez and understanding confirmed on 07/01/2022 22:57:50 (ET). Electronically Signed: Dwight Fountain MD at 22:59 EDT Reading Location ID and State: [id number] / [employer] Tel , Service support , ADDENDUM: 07/01/22 2305 IMPRESSION: Normal CTA Head and neck with contrast. N.B. : The above Results were Read Back by Dwight Fountain MD to Paddy Jimenez and understanding confirmed on 07/01/2022 22:57:50 (ET). Electronically Signed: Dwight Fountain MD at 22:59 EDT Reading Location ID and State: [id number] / [employer] Tel , Service support , Chest X-Ray 07/01/22 23:00 IMPRESSION: No active disease. Electronically Signed: Dwight Fountain MD at 23:10 EDT Reading Location ID and State: [id number] / [employer] Tel , Service support , Physical Exam Const alert, oriented x3, no apparent distress and healthy appearing General Appearance: cooperative, well kempt and well developed Orientation / Consciousness: awake, oriented to person, oriented to place and oriented to time HEENT normocephalic and moist oral mucous membranes Eyes PERRL, EOMs intact bilaterally and conjunctivae normal Neck supple, no JVD and thyroid normal General: trachea midline Resp normal respiratory effort, no retractions, no use of accessory muscles and clear to auscultation bilaterally Auscultation: Negative for rales, rhonchi or wheezes Cardio regular rate, regular rhythm, S1 normal heart sound, S2 normal heart sound, no murmurs, no rub and no gallops GI normal to inspection, nondistended, normoactive bowel sounds, soft to palpation, non-tender and non-distended Extremity no clubbing, cyanosis or edema Skin no rashes or lesions noted General Skin Exam: no breakdown Neuro oriented x3, CN's II-XII intact bilaterally, moves all extremities, no focal motor deficits and no sensory deficits noted Sensorium / Orientation: awake and alert Speech: speech normal Psych affect normal Assessment & Plan Assessment/Plan (1) Dysarthria: PLAN: Plan 1. Dysarthria-resolved at this time, etiology unclear, patient will undergo an MRI of the brain tomorrow, I have canceled the patient's echocardiogram due to the fact that he had an echocardiogram in 2019 which showed a patent foramen ovale which was small. #2 Lewy body dementia-complicates care, medical management, recovery and prognosis, patient today is alert, he appears oriented, and he is appropriate. #3 Parkinson's disease-patient is currently on no medication for this #4 hyperlipidemia-patient is on atorvastatin #5 history of sick sinus syndrome-status post pacemaker insertion 2015 #6 hypothyroidism-patient is on Synthroid Charges/Coding Visit Charges OBSV E&M: 34077 Subsequent observation care L2
--- NOTE | 2022-07-02 20:37 | CT_ITS ---
We are attempting to reach an attending provider to discuss findings. An addendum with communication details will be sent when the communication is complete. INDICATION: Altered mental status EXAMINATION: CT BRAIN - CT Head or Brain W/O Contrast Injection TECHNIQUE: Multiple axial images were obtained of the head without intravenous contrast. A radiation dose optimization technique was used for this scan. IV Contrast dosage and agent: None. COMPARISON: 07/01/2022 CT angiography and unenhanced CT head and brain. FINDINGS: BRAIN PARENCHYMA: No intra- or extra-axial hemorrhage. No intracranial mass or mass effect. Hogan/white matter differentiation is maintained and there is no blurring of the basal ganglia. There is no hyperdense vessel. Mild asymmetric left-sided anterior internal capsule increased hypodensity without obscuration of the adjacent caudate lobe is unchanged compared to prior exam. This likely represents chronic involutional changes. No corollary abnormality on comparison CT angiography. Posterior fossa structures are unremarkable. CSF SPACES: Appropriate for age. No hydrocephalus. Basal cisterns are patent. CALVARIUM, SKULL BASE, PARANASAL SINUSES AND MASTOID AIR CELLS: Clear. No discrete lytic or blastic abnormalities. ORBITS: Both globes, extraocular muscles, optic nerves and retrobulbar fat appear unremarkable. ASPECTS Score for Acute Strokes: 10 CT/STROKE Brain/Head without Cont IMPRESSION: Mild asymmetric left-sided anterior internal capsule increased hypodensity compared to the contralateral right side does not obscure the caudate and this finding likely represents chronic small vessel ischemic changes and is unchanged compared to recent comparison exam 07/01/2022. No acute intracranial pathology. Electronically Signed: Ba Haywood DO at 21:02 EDT ,
--- NOTE | 2022-07-02 20:44 | PCM.PN.BLA ---
Progress Note A stroke alert was called at 20:28 for worsening NIHSS of 7 from a previous of 3. He had worsening confusion, blurred vision, slight drift in the right leg. Patient was LKW at that time. His NIHSS during the day has been about 3 BP 154/73. Blood sugar 110 Patient was alert, other x3. No drift was seen in the upper extremities or lower extremities. Patient stated that he was seeing a tao to purple dog ran through the room. He was seen the sun shining through the room. Suspect patient is sundowning Stroke alert protocol followed -stat CT of the brain has been unremarkable [facility] teleneurology recommended monitoring, delirium protocol Continue on oral Cipro
[2022-07-02] MEDS: Atorvastatin Calcium 40 MG Tablet PO (21:02)
[2022-07-02 22:25] LABS: Bedside Glucose 110 mg/dL (74-106)
[2022-07-03] VITALS (11 sets, daily range): BP systolic 158–181; BP diastolic 47–73; PULSE 60–68; RESP 16–20; TEMP 36.2–37.6; O2SAT 92–96; BMI 26.9
[2022-07-03] MEDS: 0.9% Normal Saline 1,000 ML 75 ML IV ×2 (02:15→14:54)
--- NOTE | 2022-07-03 05:16 | NURSING ---
all documentation completed by Mariah reviewed by this RN
[2022-07-03] MEDS: Levothyroxine 88 MCG Tablet PO (06:11)
[2022-07-03] MEDS: Heparin Injection (Vial) 5,000 UNIT/ML VIAL 5000 UNIT SC ×3 (06:11→23:24)
[2022-07-03] MEDS: Aspirin 81 MG TAB.CHEW PO (10:13)
[2022-07-03] MEDS: Pantoprazole Sodium 40 MG Tablet PO (10:13)
[2022-07-03] MEDS: Ciprofloxacin 500 MG Tablet PO (10:13)
[2022-07-03] MEDS: Citalopram 20 MG Tablet PO (10:13)
[2022-07-03] MEDS: Tamsulosin HCl 0.4 MG Capsule PO (10:13)
[2022-07-03] MEDS: Cholecalciferol (VIT D3) 25 MCG TABLET (1,000 UNITS) PO (10:13)
--- NOTE | 2022-07-03 10:50 | CASEMGMT ---
Pt w/ hx of Lewy body dementia. This RN JENNIFER to room with STAPLETON form, explanation done w/ - voices understanding, and signs STAPLETON form for pt. Original to chart and copy to . Pt has MCR IP vs OBS booklet at bedside. voice no further questions/concerns/needs. SStaten ORA CM
--- NOTE | 2022-07-03 11:55 | CASEMGMT ---
states concerns with pt's presentation, stating that he has done this before after having certain antibx and Dr. Lennon aware per request. Pt was placed on Cipro last week after cysto with Dr. Ravi and call to [facility] Cal[facility]o to clarify script. Per Scott, pt picked up a 3 day supply on 06/30/22. Dr. Lennon aware and states will d/c Cipro at this time. Isra PAYAN CM
--- NOTE | 2022-07-03 12:54 | PN.HOSP_ITS ---
Subjective Subjective Patient seen and examined. He had no active complaints. He had a stroke alert called overnight due to NIHSS increasing to 6; CT of the brain showed no acute intracranial pathology and his symptoms were thought to be due to sundowning. He was alert and oriented this morning, though family is concerned his ciprofloxa aldo he is on may be contributing to his episodic encephalopathy. Review of systems is otherwise negative. He is awaiting an MRI of the brain Objective Data Objective Data Vital Signs: Vital Signs Temp Pulse Resp BP Pulse Ox O2 Del Method 98.2 F 60 20 H 162/73 H 93 Room Air 07/03/22 08:01 07/03/22 08:01 07/03/22 08:01 07/03/22 08:01 07/03/22 08:01 07/03/22 09:33 Oxygen Delivery Method Room Air Weight: 188 lb 11.451 oz Body Mass Index (BMI) 26.9 Intake & Output: Intake and Output for Last 24 Hours 07/01/22 07/02/22 07/03/22 23:59 23:59 23:59 Intake Total 1813.75 / 1813.75 985 / 985 Output Total 350 / 600 250 / 250 Balance 1463.75 / 1213.75 735 / 735 Lab / Micro Data Result Diagrams: 07/02/22 05:04 07/02/22 05:04 Labs: Laboratory Results - last 24 hr 07/02/22 20:28: POC Glucose 110 H Micro: Microbiology 07/01/22 22:55 Urine, Clean Catch Urine Culture - Final Mixed Gram Positive Organisms Radiography Diagnostic Testing: Radiology Impression Brain CT 07/02/22 20:37 IMPRESSION: Mild asymmetric left-sided anterior internal capsule increased hypodensity compared to the contralateral right side does not obscure the caudate and this finding likely represents chronic small vessel ischemic changes and is unchanged compared to recent comparison exam 07/01/2022. No acute intracranial pathology. Electronically Signed: Ba Haywood DO at 21:02 EDT , ADDENDUM: 07/02/22 9541 IMPRESSION: Mild asymmetric left-sided anterior internal capsule increased hypodensity compared to the contralateral right side does not obscure the caudate and this finding likely represents chronic small vessel ischemic changes and is unchanged compared to recent comparison exam 07/01/2022. No acute intracranial pathology. N.B. : The above Results were Read Back by Ba Haywood DO to ANN MARIE Rhodes, and understanding confirmed on 07/02/2022 21:08:21 (ET). Electronically Signed: Ba Haywood DO at 21:02 EDT , Physical Exam Const alert, oriented x3 and no apparent distress HEENT head/scalp atraumatic, moist oral mucous membranes and oropharynx normal Head and Scalp: normocephalic Mouth: oral and palatal mucosa normal Eyes PERRL, EOMs intact bilaterally and conjunctivae normal Neck no lymphadenopathy, supple and no JVD Resp normal respiratory effort, no retractions, no use of accessory muscles and clear to auscultation bilaterally Cardio regular rate, regular rhythm, S1 normal heart sound, S2 normal heart sound and no murmurs GI normal to inspection, nondistended, normoactive bowel sounds, soft to palpation, non-tender and non-distended Extremity normal to inspection, full ROM and no clubbing, cyanosis or edema Neuro oriented x3, CN's II-XII intact bilaterally and moves all extremities Sensorium / Orientation: awake and alert Speech: speech normal Motor Exam: strength 5/5 throughout Psych affect normal Assessment & Plan Assessment/Plan (1) Dysarthria: PLAN: Plan #Dysarthria * concerning for TIA. MRI of the brain pending * will order 2D echo * CT of the brain showed no acute intracranial pathology. * Pt/OT on board. fall precautions * #Lewy body dementia * stable * #HYperlipidemia: on statin #History of sick sinus syndrome: s/p pacemaker in 2016. Stable #Hypothyroidism: on synthroid #BPH: * on flomax. Recently had some instrumentation done by urology and was placed on ciprofloxacin for 3 days. * Family thinks that this may be contributing to his confusion. * Will DC Cipro as he has completed a 3-day course. * DVT prophylaxis: heparin Charges/Coding Visit Charges OBSV E&M: 24396 Subsequent observation care L2
--- NOTE | 2022-07-03 13:04 | ECHOD_ITS ---
Reason For Study: TIA/CVA Procedure This was a 2D Doppler, Color Flow transthoracic echocardiogram. Exam performed portable in patient room. Left Ventricle Normal LV size. Left ventricular systolic function is normal. The estimated ejection fraction is 55 %. No regional wall motion abnormalities noted. Right Ventricle Normal RV size. ICD or pacer leads identified within the right ventricle. Normal systolic function. Atria Normal left atrium. The right atrium is mildly enlarged. Mitral Valve There is mild mitral annular calcification. Mild (1+) eccentric mitral valve insufficiency. Tricuspid Valve Normal tricuspid valve. Mild tricuspid valve insufficiency. Pulmonary artery systolic pressure is 29 mmHg. Aortic Valve Trisinus/trileaflet aortic valve. Pulmonic Valve Normal pulmonic valve. Great Vessels Normal aortic root. The pulmonary artery is normal size. Normal inferior vena cava. Pericardium/Pleural No pericardial effusion. MMode/2D Measurements & Calculations LVIDd: 6.0 cm IVSd: 0.94 cm Ao root diam: 3.2 cm LVIDs: 4.0 cm LVPWd: 1.3 cm FS: 32.4 % LAV(MOD-sp4): 63.8 ml LVAd ap4: 35.5 cm2 SV(MOD-sp4): 65.2 ml LVLd ap4: 8.4 cm EDV(MOD-sp4): 120.5 ml EDV(sp4-el): 127.3 ml LVAs ap4: 21.4 cm2 LVLs ap4: 7.0 cm ESV(MOD-sp4): 55.2 ml ESV(sp4-el): 55.4 ml EF(MOD-sp4): 54.1 % EF(sp4-el): 56.5 % SV(sp4-el): 71.9 ml LA A4 area: 20.5 cm2 LA dimension(2D): 4.1 cm RA A4 area: 23.6 cm2 Doppler Measurements & Calculations MV A max jose: 83.9 cm/sec Lat Peak E' Jose: 6.9 cm/sec Med Peak E' Jose: 39.7 cm/sec Ao V2 max: 145.0 cm/sec LV V1 max: 115.1 cm/sec TR max jose: 253.2 cm/sec Ao max P.4 mmHg LV V1 max P.3 mmHg TR max P.7 mmHg Ao V2 mean: 98.6 cm/sec LV V1 mean P.0 mmHg Ao mean P.5 mmHg LV V1 mean: 81.9 cm/sec Ao V2 VTI: 36.9 cm LV V1 VTI: 27.3 cm ECHO/Echo Complete Interpretation Summary Normal LV size. Left ventricular systolic function is normal. The estimated ejection fraction is 55 %. Mild tricuspid valve insufficiency. Pulmonary artery systolic pressure is 29 mmHg. Ordering Physician: Chichi Lennon Performed By: Matilde Vivar RCS
[2022-07-03] MEDS: Atorvastatin Calcium 40 MG Tablet PO (23:24)
[2022-07-04] VITALS (12 sets, daily range): BP systolic 153–188; BP diastolic 48–76; PULSE 60–87; RESP 18–20; TEMP 36.5–37.1; O2SAT 93–97; BMI 26.9
[2022-07-04] MEDS: 0.9% Normal Saline 1,000 ML 75 ML IV (04:20)
[2022-07-04] MEDS: Levothyroxine 88 MCG Tablet PO (05:41)
[2022-07-04] MEDS: Heparin Injection (Vial) 5,000 UNIT/ML VIAL 5000 UNIT SC ×3 (05:42→20:47)
[2022-07-04] MEDS: Citalopram 20 MG Tablet PO (08:00)
[2022-07-04] MEDS: Aspirin 81 MG TAB.CHEW PO (08:00)
[2022-07-04] MEDS: Cholecalciferol (VIT D3) 25 MCG TABLET (1,000 UNITS) PO (08:00)
[2022-07-04] MEDS: Tamsulosin HCl 0.4 MG Capsule PO (08:00)
[2022-07-04] MEDS: Pantoprazole Sodium 40 MG Tablet PO (08:00)
[2022-07-04 09:12] LABS: Absolute Neutrophil Count 5.1 X10^3/uL (2.0-7.7); Basophil# 0.02 X10^3/uL; Basophil% 0.3 % (0-1); Eosinophil# 0.08 X10^3/uL; Eosinophils% 1.2 % (0-5); Hematocrit 43.2 % (40-54); Hemoglobin 14.2 g/dL (13.0-16.5); Lymphocyte % 11.8 % (19-41); Mean Corp Hgb Conc 32.9 g/dL (32-36); Mean Corpuscular Volume 88.2 fL (80-94); Mean Platelet Vol. 10.6 fl (6.2-12.0); Monocyte# 0.78 X10^3/uL; Monocyte% 11.5 % (0-10); NRBC Flagged by Analyzer 0 % (0-5); Neutrophil # 5.05 X10^3/uL (2.7-7.7); Neutrophil % 74.8 % (47-70); Platelet Count 221 K/mm3 (150-450); RBC Distribution Width CV 13.8 % (11.6-14.6); RBC Distribution Width SD 44.2 fl (35.1-43.9); White Blood Count 6.8 K/mm3 (4.4-11.0)
[2022-07-04 09:29] LABS: Anion Gap 9 (5-15); BUN 8 mg/dL (7-18); BUN/Creat Ratio 7.1 RATIO (10-20); Calcium,Total 9.3 mg/dL (8.5-10.1); Chloride 106 mmol/L (98-107); Creatinine, Serum 1.13 mg/dL (0.70-1.30); EST Glomerular Filtration Rate 66 mL/min (>60); Est Glom Filt Rate - Afr Amer 80 mL/min (>60); Estimated Creatinine Clearance 53.83 ml/min; Glucose 92 mg/dL (74-106); Potassium 3.8 mmol/L (3.5-5.1); Sodium Level 138 mmol/L (136-145)
--- NOTE | 2022-07-04 15:21 | PN.HOSP_ITS ---
Subjective Subjective Patient seen and examined. He complained of urinary retention today and difficulty with urination.He is still awaiting the MRI. Objective Data Objective Data Vital Signs: Vital Signs Temp Pulse Resp BP Pulse Ox O2 Del Method 98.5 F 66 20 H 155/48 H 93 Room Air 07/04/22 12:00 07/04/22 12:00 07/04/22 12:00 07/04/22 12:00 07/04/22 12:00 07/04/22 12:00 Oxygen Delivery Method Room Air Weight: 188 lb 11.451 oz Body Mass Index (BMI) 26.9 Intake & Output: Intake and Output for Last 24 Hours 07/02/22 07/03/22 07/04/22 23:59 23:59 23:59 Intake Total 1813.75 / 1813.75 2653.75 / 2653.75 1271.25 / 1271.25 Output Total 350 / 600 350 / 350 750 / 750 Balance 1463.75 / 1213.75 2303.75 / 2303.75 521.25 / 521.25 Lab / Micro Data Result Diagrams: 07/04/22 08:55 07/04/22 08:55 Labs: Laboratory Results - last 24 hr 07/04/22 08:55: WBC 6.8, RBC 4.90, Hgb 14.2, Hct 43.2, MCV 88.2, MCH 29.0, MCHC 32.9, RDW Std Deviation 44.2 H, RDW Coeff of Paulo 13.8, Plt Count 221, MPV 10.6, Immature Gran % (Auto) 0.400, Neut % (Auto) 74.8 H, Lymph % (Auto) 11.8 L, Iron % (Auto) 11.5 H, Eos % (Auto) 1.2, Baso % (Auto) 0.3, Absolute Neuts (auto) 5.1, Absolute Lymphs (auto) 0.80 L, Nucleated RBC % 0 07/04/22 08:55: Sodium 138, Potassium 3.8, Chloride 106, Carbon Dioxide 23.0, Anion Gap 9, BUN 8, Creatinine 1.13, Estim Creat Clear Calc 53.83, Est GFR (MDRD) Af Amer 80, Est GFR (MDRD) Non-Af 66, BUN/Creatinine Ratio 7.1 L, Glucose 92, Calcium 9.3 07/04/22 08:55: Magnesium 2.0 Micro: Microbiology 07/01/22 22:55 Urine, Clean Catch Urine Culture - Final Mixed Gram Positive Organisms Radiography Diagnostic Testing: Radiology Impression Echocardiogram 07/03/22 13:04 Interpretation Summary Normal LV size. Left ventricular systolic function is normal. The estimated ejection fraction is 55 %. Mild tricuspid valve insufficiency. Pulmonary artery systolic pressure is 29 mmHg. Ordering Physician: Chichi Lennon Performed By: Matilde Vivar RCS Physical Exam Const alert, oriented x3, no apparent distress, average body habitus and healthy appearing General Appearance: cooperative, well kempt and well developed Orientation / Consciousness: awake, oriented to person, oriented to place and oriented to time HEENT normocephalic, head/scalp atraumatic, moist oral mucous membranes and oropharynx normal Eyes PERRL, EOMs intact bilaterally and conjunctivae normal Neck no lymphadenopathy, supple, no JVD and thyroid normal General: trachea midline Resp normal respiratory effort, no retractions, no use of accessory muscles and clear to auscultation bilaterally Auscultation: Negative for rales, rhonchi or wheezes Cardio regular rate, regular rhythm, S1 normal heart sound, S2 normal heart sound, no murmurs, no rub and no gallops GI normal to inspection, nondistended, normoactive bowel sounds, soft to palpation, non-tender and non-distended Extremity normal to inspection, full ROM and no clubbing, cyanosis or edema Skin no rashes or lesions noted General Skin Exam: no breakdown Neuro oriented x3, CN's II-XII intact bilaterally, moves all extremities, no focal motor deficits and no sensory deficits noted Sensorium / Orientation: awake and alert Speech: speech normal Motor Exam: strength 5/5 throughout Psych affect normal Assessment & Plan Assessment/Plan (1) Dysarthria: PLAN: Plan #Dysarthria * concerning for TIA. MRI of the brain still pendingpending * 2D echo showed normal LV size and systolic function. EF is 55%, with pulmonary artery systolic pressure of 29mmhg. * CT of the brain showed no acute intracranial pathology. * Pt/OT on board. fall precautions * pacemaker tech to inactivate pacemaker today for patient to be able to have MRi * #Lewy body dementia * stable * #HYperlipidemia: on statin #History of sick sinus syndrome: s/p pacemaker in 2016. Stable #Hypothyroidism: on synthroid #BPH: * on flomax. complained of urinary retention today. * will straight cath patient to relieve obstruction * * DVT prophylaxis: heparin Charges/Coding Visit Charges OBSV E&M: 15052 Subsequent observation care L2
[2022-07-04] MEDS: Atorvastatin Calcium 40 MG Tablet PO (20:47)
[2022-07-04] MEDS: 0.9% Saline Lock 10 ML Syringe IV (20:47)
[2022-07-05] VITALS (10 sets, daily range): BP systolic 150–177; BP diastolic 59–70; PULSE 60–75; RESP 16–18; TEMP 36.6–37; O2SAT 92–98; BMI 26.9
[2022-07-05 04:42] LABS: Absolute Lymphocyte Count 1.47 X10^3/uL (0.83-4.51); Absolute Neutrophil Count 2.7 X10^3/uL (2.0-7.7); Basophil# 0.02 X10^3/uL; Basophil% 0.4 % (0-1); Eosinophil# 0.29 X10^3/uL; Eosinophils% 5.7 % (0-5); Hematocrit 40.8 % (40-54); Hemoglobin 13.4 g/dL (13.0-16.5); Lymphocyte # 1.47 X10^3/ul (0.83-4.51); Lymphocyte % 28.9 % (19-41); Mean Corp Hgb Conc 32.8 g/dL (32-36); Mean Corpuscular Hgb 28.7 pg (27.0-32.0); Mean Corpuscular Volume 87.4 fL (80-94); Mean Platelet Vol. 10.3 fl (6.2-12.0); Monocyte# 0.56 X10^3/uL; NRBC Flagged by Analyzer 0 % (0-5); Neutrophil # 2.71 X10^3/uL (2.7-7.7); Neutrophil % 53.4 % (47-70); Platelet Count 235 K/mm3 (150-450); RBC Distribution Width CV 13.7 % (11.6-14.6); RBC Distribution Width SD 43.5 fl (35.1-43.9); Red Blood Count 4.67 M/mm3 (4.6-6.2); White Blood Count 5.1 K/mm3 (4.4-11.0)
[2022-07-05 05:11] LABS: Anion Gap 5 (5-15); BUN 7 mg/dL (7-18); BUN/Creat Ratio 7.2 RATIO (10-20); Calcium,Total 8.9 mg/dL (8.5-10.1); Chloride 108 mmol/L (98-107); Creatinine, Serum 0.97 mg/dL (0.70-1.30); EST Glomerular Filtration Rate 79 mL/min (>60); Est Glom Filt Rate - Afr Amer 96 mL/min (>60); Estimated Creatinine Clearance 62.71 ml/min; Glucose 89 mg/dL (74-106); Potassium 3.8 mmol/L (3.5-5.1); Sodium Level 138 mmol/L (136-145)
[2022-07-05] MEDS: Heparin Injection (Vial) 5,000 UNIT/ML VIAL 5000 UNIT SC (05:49)
[2022-07-05] MEDS: Levothyroxine 88 MCG Tablet PO (05:49)
--- NOTE | 2022-07-05 09:00 | MRI_ITS ---
STUDY: MRI BRAIN WITHOUT CONTRAST REASON FOR EXAM: Male, 82 years old. NEURO DEFICITS TECHNIQUE: Standardized multiplanar fat and water weighted pulse sequences were obtained. COMPARISON: CT 07/02/2022, MRI 10/06/2020 FINDINGS: There is moderate cerebral atrophy with widening of the extra-axial spaces and ventricular dilatation. There are multiple white matter hyperintensities, distributed throughout the deep white matter tracts of the cerebral hemispheres, consistent with moderate chronic white matter ischemic changes. There is no evidence for recent intracranial ischemia or other cause of cytotoxic edema on diffusion weighted imaging (DWI). Normal T2* images of the brain without demonstrated susceptibility artifact. There is no demonstrated hemosiderin stain. Normal bilateral basal ganglia. Normal thalami. There is no extra-axial fluid accumulation. Normal flow voids within the major intracranial circulation suggesting patency by spin echo criteria. Normal sella turcica, pituitary gland, infundibular stalk, optic chiasm and hypothalamus. Normal tectal plate and pineal gland. Normal midbrain, rachell and medulla. Normal cerebellum. Normal basal cisterns. Normal bilateral temporal bones. Normal bilateral internal auditory canals. There are bilateral ocular lens implants with otherwise normal intraorbital contents. Normal visualized paranasal sinuses. Normal calvarium and skull base. Normal visualized soft tissue structures. Normal visualized upper cervical spine. MRI/Brain without Contrast IMPRESSION: Involutional changes of the brain, as described above. No acute infarct. Electronically Signed: Dwight Fountain MD at 15:28 EDT ,
[2022-07-05] MEDS: Aspirin 81 MG TAB.CHEW PO (09:56)
[2022-07-05] MEDS: Pantoprazole Sodium 40 MG Tablet PO (09:56)
[2022-07-05] MEDS: Cholecalciferol (VIT D3) 25 MCG TABLET (1,000 UNITS) PO (09:56)
[2022-07-05] MEDS: Citalopram 20 MG Tablet PO (09:56)
[2022-07-05] MEDS: Tamsulosin HCl 0.4 MG Capsule PO (09:56)
--- NOTE | 2022-07-05 15:12 | CASEMGMT ---
This RN CM to room to discuss d/c plan with and pt is still out of dept for MRI. states no concerns with pt going home at time of discharge but is concerned about pt's kidney fxn/output. Kaitlyn PAYAN aware and into room to speak with pt/ once pt returns from MRI. states no need for any further therapy at discharge and was agreeable to patient link program for pt. Isra PAYAN CM
--- NOTE | 2022-07-05 15:18 | DS.PCM_ITS ---
Providers Date of Admission: 07/01/22 Date of Discharge: 07/05/22 Primary Care Physician: Dr. Chepe Rodriguez MD Reason For Visit: TIA Diagnosis Discharge Diagnosis (1) Dysarthria: Status: Acute Code(s): R47.1 - Dysarthria and anarthria Plan #Dysarthria * concerning for TIA. MRI of the brain still pendingpending * 2D echo showed normal LV size and systolic function. EF is 55%, with pulmonary artery systolic pressure of 29mmhg. * CT of the brain showed no acute intracranial pathology. * Pt/OT on board. fall precautions * pacemaker tech to inactivate pacemaker today for patient to be able to have MRi * #Lewy body dementia * stable * #HYperlipidemia: on statin #History of sick sinus syndrome: s/p pacemaker in 2015. Stable #Hypothyroidism: on synthroid #BPH: * on flomax. complained of urinary retention today. * will straight cath patient to relieve obstruction * * DVT prophylaxis: heparin Medications at Discharge Home Medications levothyroxine 88 mcg tablet 88 mcg PO DAILY thyroid 04/14/18 tamsulosin 0.4 mg capsule 0.4 mg PO DAILY prostate 04/14/18 aspirin 81 mg chewable tablet 81 mg PO DAILY@0800 ##30 12/30/18 testosterone cypionate 100 mg/mL intramuscular oil 200 mg IM Q3W hormones 01/08/19 esomeprazole magnesium 40 mg capsule,delayed release 40 mg PO DAILY reflux 05/04/20 cholecalciferol (vitamin D3) 50 mcg (2,000 unit) tablet 25 mcg PO DAILY 06/01/21 citalopram 20 mg tablet 20 mg PO DAILY 06/01/21 loratadine 10 mg tablet 10 mg PO DAILY 06/01/21 wheat dextrin 3 gram/3.5 gram oral powder packet (Benefiber Clear Sugar Free(dextrin)) 1.5 g PO TID 06/01/21 atorvastatin 40 mg tablet 40 mg PO QHS #90 tabs 06/06/22 Hospital Course Operations None Procedures 2-D Echocardiogram Summary of Care Provided Minutes Spent on Discharge: 45 Hospital Course: Patient is an 82 y/o male with a PMH as outlined who was admitted via the ED with a complaint of dysarthria and word finding difficulty. He had recently had a cystoscopy with urology on outpatient basis, and subsequently complained of dysarthria and frequency as well as lower abdominal discomfort after the procedure. He was therefore discharged on oral ciprofloxacin. He subsequently went fishing with his family but that he did not feel well and felt dizzy and fell down. He did not hit his head but seemed to have trouble speaking. He had had similar episodes like this before. The previous ones were thought to be due to infection according to his family. He was admitted to be managed for dysarthria to rule out a stroke. He was reviewed by telestroke neurology in the ED and was not felt to be a tPA candidate as his symptoms had largely recovered. CT of the brain showed no acute intracranial pathology. Urinalysis showed 1+ bacteria and 10-20 WBCs. He was admitted to be managed for TIA. His ciprofloxacin was discontinued after he completed the course as family was concerned that this could be causing his confusion. He had 2D echo which showed EF of 55% with normal left ventricular systolic function and mild tricuspid valve insufficiency as well as pulmonary artery systolic pressure of 29 mmHg. He had MRI on 07/05/2022 which showed chronic involutional changes with no acute intracranial pathology. He remained stable and was discharged home on 07/05/2022. He is to follow-up with his primary care doctor within 1 to 2 weeks. Patient seen and examined prior to discharge. He complained of some urinary retention overnight which was relieved by straight cath. He had no other complaints and review of systems otherwise negative. Labs and vitals reviewed. Home medication reviewed and reconciled. He is to be discharged to [facility] catheter in situ and follow-up with urology on outpatient basis within 1 week. Physical Exam Const alert, oriented x3, no apparent distress, average body habitus, no limitations and healthy appearing General Appearance: cooperative, comfortable, well kempt and well developed Orientation / Consciousness: awake, oriented to person, oriented to place and oriented to time HEENT normocephalic, head/scalp atraumatic, hearing grossly normal bilaterally, moist oral mucous membranes and oropharynx normal Mouth: oral and palatal mucosa normal Eyes PERRL, EOMs intact bilaterally and conjunctivae normal Neck no lymphadenopathy, supple, no JVD and thyroid normal General: trachea midline Resp normal respiratory effort, no retractions, no use of accessory muscles and clear to auscultation bilaterally Auscultation: Negative for rales, rhonchi or wheezes Cardio regular rate, regular rhythm, S1 normal heart sound, S2 normal heart sound, no murmurs, no rub and no gallops GI normal to inspection, nondistended, normoactive bowel sounds, soft to palpation, non-tender and non-distended Extremity normal to inspection, full ROM and no clubbing, cyanosis or edema Skin no rashes or lesions noted General Skin Exam: no breakdown Neuro oriented x3, CN's II-XII intact bilaterally, moves all extremities, no focal motor deficits and no sensory deficits noted Sensorium / Orientation: awake and alert Speech: speech normal Motor Exam: strength 5/5 throughout Psych affect normal Weight / BMI Weight Weight: 187 lb 9.814 oz Body Mass Index (BMI) 26.9 ABG / Lab / Microbiology Data Result Diagrams: 07/05/22 04:21 07/05/22 04:21 Laboratory: Laboratory Results - last 24 hr 07/05/22 04:21: WBC 5.1, RBC 4.67, Hgb 13.4, Hct 40.8, MCV 87.4, MCH 28.7, MCHC 32.8, RDW Std Deviation 43.5, RDW Coeff of Paulo 13.7, Plt Count 235, MPV 10.3, Immature Gran % (Auto) 0.600, Neut % (Auto) 53.4, Lymph % (Auto) 28.9, Cobb % (Auto) 11.0 H, Eos % (Auto) 5.7 H, Baso % (Auto) 0.4, Absolute Neuts (auto) 2.7, Absolute Lymphs (auto) 1.47, Nucleated RBC % 0 07/05/22 04:21: Sodium 138, Potassium 3.8, Chloride 108 H, Carbon Dioxide 25.0, Anion Gap 5, BUN 7, Creatinine 0.97, Estim Creat Clear Calc 62.71, Est GFR (MDRD) Af Amer 96, Est GFR (MDRD) Non-Af 79, BUN/Creatinine Ratio 7.2 L, Glucose 89, Calcium 8.9 Microbiology: Microbiology 07/01/22 22:55 Urine, Clean Catch Urine Culture - Final Mixed Gram Positive Organisms D/C Instructions Discharge Diet: Low fat / Low cholesterol Discharge Activity: Return to Normal Activity Weight Bearing Status: Weight bearing as tolerated Call your doctor if you observe: Fever of 101 or Higher, Inability to have a bowel movement, Shortness of breath, Dizziness, Fainting spells, Swelling in the ankles, Chest pain and Increased palpitations (irregular heartbeat) Meaningful Use Info Meaningful Use Diagnoses (Choose all that apply): None applicable Discharge Plan Admission Admit Date/Time: 07/01/22 23:41 Primary Reason for Your Visit: dysarthria Attending Provider: Chichi Lennon Primary Care Provider: Chepe Rodrgiuez Consulting Providers: Yulia Orr ; Rosalio Arboleda Instructions Patient Instructions: What Is Dysarthria, Treating Dysarthria Discharge Orders/Prescriptions Prescriptions: Continued Benefiber Clear SF (dextrin) 3 gram/3.5 gram powder in packet 1.5 g PO TID Rx Instructions: mix into at least 4 oz water or juice before administering citalopram 20 mg tablet 20 mg PO DAILY loratadine 10 mg tablet 10 mg PO DAILY cholecalciferol (vitamin D3) 50 mcg (2,000 unit) tablet 25 mcg PO DAILY atorvastatin 40 mg tablet 40 mg PO QHS Qty: 90 3RF levothyroxine 88 MCG tablet 88 mcg PO DAILY tamsulosin 0.4 MG capsule 0.4 mg PO DAILY testosterone cypionate 100 mg/mL oil 200 mg IM Q3W Label Comments: EVERY 3 WEEKS Rx Instructions: EVERY 3 WEEKS. esomeprazole magnesium 40 mg capsule,delayed release(DR/EC) 40 mg PO DAILY aspirin 81 MG tablet,chewable 81 mg PO DAILY@0800 Qty: 30 0RF Discontinued ciprofloxacin HCl [Cipro] 500 mg Tablet 500 mg PO BID Referrals / Follow Up: Chepe Rodriguez MD [Primary Care Provider] - Within 1 Week William Ravi MD [Med Staff - Active Staff] - Within 1 Week Disposition Disposition (needs filled in before D/C Order can be placed): Home, Self Care Charges/Coding Visit Charges OBSV E&M: 82303 Observation care discharge
== END 2022-07-05 16:14 | disposition home or self-care (01) ==
LOC: ED 23:26 → PCU 23:55
PROVIDERS: Family Medicine; Internal Medicine; Admitting Provider Internal Medicine; Emergency Provider Emergency Medicine; PCP Family Medicine; Visit Provider Student in an Organized Health Care Education/Training Program
DX: R47.1 Dysarthria and anarthria (principal); G20 Parkinson's disease; G31.83 Neurocognitive disorder with Lewy bodies; F02.80 Dementia in other diseases classified elsewhere, unspecified severity, without behavioral disturbance, psychotic disturbance, mood disturbance, and anxiety; G31.9 Degenerative disease of nervous system, unspecified; I49.5 Sick sinus syndrome; E78.5 Hyperlipidemia, unspecified; Q21.1 Atrial septal defect; I07.1 Rheumatic tricuspid insufficiency; G47.33 Obstructive sleep apnea (adult) (pediatric); Z95.0 Presence of cardiac pacemaker; I10 Essential (primary) hypertension; G14 Postpolio syndrome; Z79.82 Long term (current) use of aspirin; Z79.899 Other long term (current) drug therapy; R27.0 Ataxia, unspecified; E03.9 Hypothyroidism, unspecified; Z79.890 Hormone replacement therapy; N40.1 Benign prostatic hyperplasia with lower urinary tract symptoms; R33.8 Other retention of urine; R94.31 Abnormal electrocardiogram [ECG] [EKG]; R53.1 Weakness; R53.81 Other malaise; H53.8 Other visual disturbances; R51.9 Headache, unspecified; Z91.81 History of falling; R42 Dizziness and giddiness
CPT/HCPCS: 36415; 70450; 70496; 70498; 70551; 71045; 80048; 80053; 80061; 81001; 82962; 83735; 84443; 84484; 85025; 85610; 85730; 87086; 87088; 92523; 93005; 93306; 94762; 96360; 96361; 96372; 97162; 97165; 97530; 97802; 99218; 99285; J7030; Q9967; A4216; G0378

== ENCOUNTER 2022-07-21 09:04 | Emergency (ER) | payer MEDICARE, OTHER, SELFPAY ==
[2022-07-21 09:08] VITALS: BP 139/65; PULSE 72; RESP 18; TEMP 36.9; O2SAT 95; BMI 25.1
--- NOTE | 2022-07-21 09:27 | EX.ED.DYSGE1 ---
HPI History of Present Illness Chief Complaint: General Illness Narrative Narrative: 82-year-old male presenting with mild confusion. His caregiver gives most of the history. Patient had a Barnett catheter placed for benign prostatic hyperplasia about a week ago by Dr. Ravi. He states that the patient had been discussing a possible TURP procedure. Today he was acting a little bit confused and it was noticed that his urine is very dark brown. The patient complained that he felt like he needed to urinate and his Barnett catheter was adjusted and then he did not feel that sensation anymore. The patient was tested for COVID twice with rapid COVID test because he had a temperature of 100. He does complain of a sore throat and has a mild cough. He does not have chills or body aches. He has not had a temperature higher than 100. He was not treated for a fever and he is afebrile on arrival. He does not have any abdominal pain. [facility] Medical History Anxiety and depression Ryder's esophagus BPH (benign prostatic hyperplasia) CPAP (continuous positive airway pressure) dependence Essential (primary) hypertension GERD (gastroesophageal reflux disease) Hyperlipidemia Hypothyroidism Lewy body dementia Migraines Narcolepsy Obstructive sleep apnea Pacemaker Parkinson's disease Patent foramen ovale Post-polio syndrome SSS (sick sinus syndrome) TIA (transient ischemic attack) Vasovagal syncope Home Medications levothyroxine 88 mcg tablet 88 mcg PO DAILY thyroid 04/14/18 [History Last Taken Unknown] tamsulosin 0.4 mg capsule 0.4 mg PO DAILY prostate 04/14/18 [History Last Taken Unknown] aspirin 81 mg chewable tablet 81 mg PO DAILY@0800 ##30 12/30/18 [Rx Last Taken Unknown] testosterone cypionate 100 mg/mL intramuscular oil 200 mg IM Q3W hormones 01/08/19 [History Last Taken Unknown] esomeprazole magnesium 40 mg capsule,delayed release 40 mg PO DAILY reflux 05/04/20 [History Last Taken Unknown] cholecalciferol (vitamin D3) 50 mcg (2,000 unit) tablet 25 mcg PO DAILY 06/01/21 [History Last Taken Unknown] citalopram 20 mg tablet 20 mg PO DAILY 06/01/21 [History Last Taken Unknown] loratadine 10 mg tablet 10 mg PO DAILY 06/01/21 [History Last Taken Unknown] wheat dextrin 3 gram/3.5 gram oral powder packet (Benefiber Clear Sugar Free(dextrin)) 1.5 g PO TID 06/01/21 [History Last Taken Unknown] atorvastatin 40 mg tablet 40 mg PO QHS #90 tabs 06/06/22 [Rx Last Taken Unknown] cephalexin 500 mg capsule 500 mg PO Q12 #14 caps 07/21/22 [Rx Last Taken Unknown] Allergy/AdvReac Type Severity Reaction Status Date / Time amoxicillin Allergy Severe Convulsions, Verified 07/21/22 09:08 SOB, Hallucinations clavulanic acid Allergy Severe Convulsions, Verified 07/21/22 09:08 [From Augmentin] SOB, Hallucinations ciprofloxacin Allergy Other Verified 07/21/22 09:08 Family History Father Heart disease Brother Heart disease Mother Heart disease Surgical History History of left heart catheterization (02/2016) History of permanent cardiac pacemaker placement (03/03/16) History of thyroidectomy Social History household members: family Smoking Status: Never smoker alcohol intake: current alcohol intake frequency: a few times a month substance use type: does not use caffeine: Yes Type: carbonated beverages and coffee ROS ROS ED Constitutional Constitutional ED: Reports subjective Eyes Eyes: Denies change in vision or diplopia ENT ENT ED: Denies rhinorrhea or sore throat Cardiovascular Cardiovascular: Denies chest pain or palpitations Respiratory/Chest Respiratory/Chest: Reports cough; Denies dyspnea Gastrointestinal Gastrointestinal: Denies abdominal pain, constipation, nausea or vomiting Genitourinary Genitourinary ED: Reports other Details: Dark urine in Barnett catheter Musculoskeletal Musculoskeletal: Denies arthralgias or back pain Integumentary Denies abscess Neurologic Neurologic: Denies headache(s) or paresthesias Psychiatric Psychiatric: Denies anxiety or depression EXAM Physical Exam Const Vital Signs: 07/21/22 09:08 07/21/22 09:45 07/21/22 09:45 Temperature 98.5 F Temperature Source Temporal Pulse Rate 72 71 Respiratory Rate 18 12 Respiratory Effort Short of Breath Respiratory Pattern Normal Blood Pressure 139/65 H Blood Pressure Mean 89 Pulse Ox 95 Oxygen Delivery Method Room Air 07/21/22 11:01 Temperature Temperature Source Pulse Rate 73 Respiratory Rate 20 H Respiratory Effort Respiratory Pattern Blood Pressure Blood Pressure Mean Pulse Ox Oxygen Delivery Method Positive well nourished General Appearance ED: NAD; Negative for pallor HEENT Reports moist mucous membranes and dry mucous membranes Negative for trauma Mouth ED: Yes dry mucous membranes Mouth: dry mucous membranes Eyes PERRL and EOMs intact bilaterally Resp normal respiratory effort and clear to auscultation bilaterally Auscultation: Negative for rales, rhonchi or wheezes Cardio regular rate and regular rhythm GI normal to inspection, nondistended, normoactive bowel sounds Narrative: Barnett catheter appears to be in place. Dark brown urine is draining into the Barnett catheter. Back/Spine no CVA tenderness Neuro oriented x3 and CN's II-XII intact bilaterally Sensorium / Orientation: alert Motor Exam: strength 5/5 throughout Psych mental status grossly normal Skin no wounds General Skin Exam: Negative for jaundice or pallor MDM MDM MDM Narrative Medical decision making narrative: Because the patient has a cough and a sore throat I will obtain a COVID PCR and a chest x-ray. His vital signs are stable and he is afebrile. He is not hypoxic or tachypneic. Lungs are clear to auscultation bilaterally. Although patient complains of sore throat is oropharynx is normal and the rest of his HEENT exam is normal. It was reported that the patient had a temperature of 100 ?F today although he is not been treated for a fever and his temperature is 98.5 here. He appears to be alert and awake and talking to me normally. I will obtain basic lab work and a urinalysis to see if this is the source. Patient is also given a liter of IV fluids. Patient's vital signs remained stable while he was in the ER. Is alert awake and talking to me and does not seem to be confused. CBC is normal. CMP shows a slight elevation in total bilirubin at 1.5 but otherwise electrolytes and renal function are normal. Urinalysis shows positive nitrites and 500 leukocyte esterase with rater than 100 WBCs and greater than 100 white blood cells. Given this the patient was given a dose of Rocephin in the ER. Urine was sent for culture. Chest x-ray on my interpretation shows no acute cardiopulmonary process and the radiologist agree. Patient will be put on Keflex for home to treat for UTI. His COVID testing is pending, however he does not have any tachycardia, tachypnea, hypoxia. He has been afebrile throughout his stay. I do not think this would change his disposition. Impression: 1. Cough 2. UTI 3. Subjective fever Lab Data Attestation: I reviewed the patient's lab results. Labs: Laboratory Results - last 24 hr 07/21/22 07/21/22 07/21/22 09:50 09:50 09:56 WBC 9.2 RBC 5.05 Hgb 14.6 Hct 43.9 MCV 86.9 MCH 28.9 MCHC 33.3 RDW Std Deviation 42.7 RDW Coeff of Paulo 13.6 Plt Count 292 MPV 10.5 Immature Gran % (Auto) 0.400 Neut % (Auto) 81.8 H Lymph % (Auto) 8.4 L [place] % (Auto) 8.0 Eos % (Auto) 1.0 Baso % (Auto) 0.4 Absolute Neuts (auto) 7.5 Absolute Lymphs (auto) 0.77 L Nucleated RBC % 0 Sodium 137 Potassium 3.9 Chloride 106 Carbon Dioxide 28.0 Anion Gap 3 L BUN 11 Creatinine 1.08 Estim Creat Clear Calc 58.10 Est GFR (MDRD) Af Amer 85 Est GFR (MDRD) Non-Af 70 BUN/Creatinine Ratio 10.2 Glucose 109 H Calcium 9.1 Total Bilirubin 1.50 H AST 18 ALT 26 Alkaline Phosphatase 114 Total Protein 7.2 Albumin 3.5 Globulin 3.7 Albumin/Globulin Ratio 0.9 Urine Color SEE COMMENT BELOW Urine Clarity Cloudy Urine pH 6.0 Ur Specific Luna 1.025 Urine Protein 100 H Urine Glucose (UA) Normal Urine Ketones 5 H Urine Occult Blood 250 H Urine Nitrite Positive H Urine Bilirubin 1 H Urine Urobilinogen 4 H Ur Leukocyte Esterase 500 H Urine RBC > 100 SEEN Urine WBC >100 SEEN Ur Squamous Epith Cells 0 SEEN Urine Bacteria 0 SEEN Urine Mucus 0 SEEN Radiography Diagnostic Testing: Clinical Impression(s) from Imaging Studies Chest X-Ray 07/21/22 09:45 IMPRESSION: Hyperinflation. The lungs are clear. Electronically Signed: Brenden Kang MD at 10:12 EDT , Discharge Plan Triage Chief Complaint: General Illness ED Provider: Jose Daniel Kramer Dx/Rx/DC Orders Instructions: ED Bladder Infection, Male (Adult) Prescriptions: New cephalexin 500 mg capsule 500 mg PO Q12 Qty: 14 0RF No Action Benefiber Clear SF (dextrin) 3 gram/3.5 gram powder in packet 1.5 g PO TID Rx Instructions: mix into at least 4 oz water or juice before administering citalopram 20 mg tablet 20 mg PO DAILY loratadine 10 mg tablet 10 mg PO DAILY cholecalciferol (vitamin D3) 50 mcg (2,000 unit) tablet 25 mcg PO DAILY atorvastatin 40 mg tablet 40 mg PO QHS Qty: 90 3RF levothyroxine 88 MCG tablet 88 mcg PO DAILY tamsulosin 0.4 MG capsule 0.4 mg PO DAILY testosterone cypionate 100 mg/mL oil 200 mg IM Q3W Label Comments: EVERY 3 WEEKS Rx Instructions: EVERY 3 WEEKS. esomeprazole magnesium 40 mg capsule,delayed release(DR/EC) 40 mg PO DAILY aspirin 81 MG tablet,chewable 81 mg PO DAILY@0800 Qty: 30 0RF Primary Care Provider: Chepe Rodriguez Referrals: Chepe Rodriguez MD [Primary Care Provider] - Disposition Disposition: Home, Self Care
[2022-07-21 09:45] VITALS: PULSE 71; RESP 12
--- NOTE | 2022-07-21 09:45 | RAD_ITS ---
STUDY: X-RAY CHEST REASON FOR EXAM: Male, 82 years old. Cough, fever and confusion. TECHNIQUE: Single AP portable view of the chest. COMPARISON: Comparison is made with prior study 07/01/2022 . FINDINGS: Hyperinflation. The lungs are clear. There is no demonstrated pleural abnormality. Normal size heart. A left sided dual chamber pacemaker is seen. Normal mediastinum and jorge. Normal visualized pulmonary arteries. There is atherosclerotic tortuosity of the aortic arch and descending thoracic aorta. There are diffuse degenerative changes of the visualized thoracic spine. There is degenerative osteoarthritis of the bilateral shoulders. There is no demonstrated abnormality of the visualized soft tissue structures of the upper abdomen. RAD/Chest 1 View (Portable) IMPRESSION: Hyperinflation. The lungs are clear. Electronically Signed: Brenden Kang MD at 10:12 EDT ,
[2022-07-21] MEDS: 0.9% Normal Saline 1,000 ML 1000 ML IV (09:53)
[2022-07-21 10:06] LABS: Bacteria 0 SEEN /hpf (None Seen); Mucous, Urine 0 SEEN /hpf (<or=2+); Squamous Epithelial Cells - UA 0 SEEN /hpf (0-5)
[2022-07-21 10:07] LABS: Absolute Lymphocyte Count 0.77 X10^3/uL (0.83-4.51); Absolute Neutrophil Count 7.5 X10^3/uL (2.0-7.7); Basophil# 0.04 X10^3/uL; Basophil% 0.4 % (0-1); Eosinophil# 0.09 X10^3/uL; Hematocrit 43.9 % (40-54); Hemoglobin 14.6 g/dL (13.0-16.5); Lymphocyte # 0.77 X10^3/ul (0.83-4.51); Lymphocyte % 8.4 % (19-41); Mean Corp Hgb Conc 33.3 g/dL (32-36); Mean Corpuscular Hgb 28.9 pg (27.0-32.0); Mean Corpuscular Volume 86.9 fL (80-94); Mean Platelet Vol. 10.5 fl (6.2-12.0); Monocyte# 0.73 X10^3/uL; NRBC Flagged by Analyzer 0 % (0-5); Neutrophil # 7.48 X10^3/uL (2.7-7.7); Neutrophil % 81.8 % (47-70); Platelet Count 292 K/mm3 (150-450); RBC Distribution Width CV 13.6 % (11.6-14.6); RBC Distribution Width SD 42.7 fl (35.1-43.9); Red Blood Count 5.05 M/mm3 (4.6-6.2); White Blood Count 9.2 K/mm3 (4.4-11.0)
[2022-07-21 10:14] LABS: Glucose, Dipstick Normal (Normal); Ketone-Dipstick 5 mg/dl (Negative); Leukocyte Esterase-Dipstick 500 /ul (Negative); Nitrite-Dipstick Positive (Negative); Occult Blood-Urine 250 /ul (Negative); Protein-Dipstick 100 mg/dl (Negative); Specific Gravity, Urine 1.025 (1.002-1.030); Urine Clarity Cloudy (Clear); Urine Urobilinogen 4 mg/dl (Normal)
[2022-07-21 10:15] LABS: Color, Urine SEE COMMENT BELOW (Yellow); Urine Bilirubin Dipstick 1 mg/dL (Negative)
[2022-07-21 10:24] LABS: White Blood Cells >100 SEEN /hpf (0-5)
[2022-07-21 10:25] LABS: Red Blood Cells-Urine > 100 SEEN /hpf (0-5)
[2022-07-21 10:35] LABS: ALB/GLOB Ratio 0.9 RATIO (0.9-2.4); AST(SGOT) 18 U/L (15-37); Alanine Aminotransfer ALT/SGPT 26 U/L (16-61); Albumin, Serum 3.5 g/dL (3.2-5.0); Alkaline Phosphatase 114 U/L (45-117); Anion Gap 3 (5-15); BUN 11 mg/dL (7-18); BUN/Creat Ratio 10.2 RATIO (10-20); Calcium,Total 9.1 mg/dL (8.5-10.1); Chloride 106 mmol/L (98-107); Creatinine, Serum 1.08 mg/dL (0.70-1.30); EST Glomerular Filtration Rate 70 mL/min (>60); Est Glom Filt Rate - Afr Amer 85 mL/min (>60); Globulin 3.7 g/dL (2.2-4.2); Glucose 109 mg/dL (74-106); Potassium 3.9 mmol/L (3.5-5.1); Protein, Total 7.2 g/dL (6.4-8.2); Sodium Level 137 mmol/L (136-145)
[2022-07-21 11:01] VITALS: PULSE 73; RESP 20
[2022-07-21] MEDS: Benzonatate 100 MG Capsule 200 MG PO (11:29)
[2022-07-21] MEDS: Ceftriaxone 1 GM/50 ML BAG IV (11:29)
== END 2022-07-21 12:25 | disposition home or self-care (01) ==
PROVIDERS: Emergency Provider Student in an Organized Health Care Education/Training Program; PCP Family Medicine; Visit Provider Student in an Organized Health Care Education/Training Program
DX: N39.0 Urinary tract infection, site not specified (principal); G20 Parkinson's disease; I49.5 Sick sinus syndrome; F41.9 Anxiety disorder, unspecified; F32.A Depression, unspecified; N40.0 Benign prostatic hyperplasia without lower urinary tract symptoms; I10 Essential (primary) hypertension; K21.9 Gastro-esophageal reflux disease without esophagitis; E78.5 Hyperlipidemia, unspecified; E03.9 Hypothyroidism, unspecified; G43.909 Migraine, unspecified, not intractable, without status migrainosus; G47.33 Obstructive sleep apnea (adult) (pediatric); Z86.73 Personal history of transient ischemic attack (TIA), and cerebral infarction without residual deficits; Z79.82 Long term (current) use of aspirin; Z79.899 Other long term (current) drug therapy; Z95.818 Presence of other cardiac implants and grafts; R05.9 Cough, unspecified
CPT/HCPCS: 96361; 96365; 99283; 71045; 80053; 81001; 85025; 87077; 87086; 87088; 87186; 87635; J7030; A4216; U0003; U0005

== ENCOUNTER 2022-07-21 20:31 | Inpatient (IN) | payer MEDICARE, OTHER, SELFPAY ==
[2022-07-21 20:33] VITALS: BP 151/74; PULSE 77; RESP 18; TEMP 37.2; O2SAT 93; BMI 25.5
[2022-07-21 20:36] VITALS: BP 151/74; PULSE 77; RESP 18; TEMP 37.2; O2SAT 93
--- NOTE | 2022-07-21 21:01 | EX.ED.DYSGE1 ---
HPI History of Present Illness Chief Complaint: Weakness Informant: patient, spouse/S.O. and family Narrative Narrative: 82-year-old male brought to the emergency department with confusion and falls. Patient was seen here earlier in the day was diagnosed with a urinary tract infection. He was discharged home where he continues to have altered mental status and is now fallen several times. Family wonders if at one point he hit his head. Urine culture was obtained at his previous visit. He did not have a white count elevation. Family notes that he is talking to people that are not there and seeing things. His COVID was negative this morning. Patient has an indwelling Barnett catheter since his last admission where he developed urinary retention. History of BPH. He [facility] Medical History (Updated 07/21/22 @ 23:27 by Parvin Maguire) Anxiety and depression Ryder's esophagus BiPAP (biphasic positive airway pressure) dependence BPH (benign prostatic hyperplasia) CPAP (continuous positive airway pressure) dependence Essential (primary) hypertension GERD (gastroesophageal reflux disease) Hyperlipidemia Hypothyroidism Lewy body dementia Migraines Narcolepsy Obstructive sleep apnea Pacemaker Parkinson's disease Patent foramen ovale Post-polio syndrome SSS (sick sinus syndrome) TIA (transient ischemic attack) Vasovagal syncope Wears hearing aid in both ears Home Medications levothyroxine 88 mcg tablet 88 mcg PO DAILY thyroid 04/14/18 [History Last Taken Unknown] tamsulosin 0.4 mg capsule 0.8 mg PO QHS prostate 04/14/18 [History Last Taken Unknown] aspirin 81 mg chewable tablet 81 mg PO DAILY@0800 ##30 12/30/18 [Rx Last Taken Unknown] esomeprazole magnesium 40 mg capsule,delayed release 40 mg PO DAILY reflux 05/04/20 [History Last Taken Unknown] cholecalciferol (vitamin D3) 50 mcg (2,000 unit) tablet 25 mcg PO DAILY supplement 06/01/21 [History Last Taken Unknown] loratadine 10 mg tablet 10 mg PO QHS Check with primary doctor 06/01/21 [History Last Taken Unknown] wheat dextrin 3 gram/3.5 gram oral powder packet (Benefiber Clear Sugar Free(dextrin)) 1.5 g PO TID Check with primary doctor 06/01/21 [History Last Taken Unknown] atorvastatin 40 mg tablet 40 mg PO QHS #90 tabs 06/06/22 [Rx Last Taken Unknown] cephalexin 500 mg capsule 500 mg PO Q12 #14 caps 07/21/22 [Rx Last Taken Unknown] finasteride 5 mg tablet 5 mg PO QHS prostate 07/21/22 [History Last Taken Unknown] Allergy/AdvReac Type Severity Reaction Status Date / Time amoxicillin Allergy Severe Convulsions, Verified 07/21/22 09:08 SOB, Hallucinations clavulanic acid Allergy Severe Convulsions, Verified 07/21/22 09:08 [From Augmentin] SOB, Hallucinations ciprofloxacin Allergy Other Verified 07/21/22 09:08 Family History Father Heart disease Brother Heart disease Mother Heart disease Surgical History History of left heart catheterization (02/2016) History of permanent cardiac pacemaker placement (03/03/16) History of thyroidectomy Social History household members: family Smoking Status: Never smoker alcohol intake: current alcohol intake frequency: a few times a month substance use type: does not use caffeine: Yes Type: carbonated beverages and coffee ROS ROS ED Constitutional Constitutional ED: Denies chills or weight loss Eyes Eyes: Denies change in vision or diplopia ENT ENT ED: Denies ear pain, rhinorrhea or sore throat Cardiovascular Cardiovascular: Denies chest pain, orthopnea, palpitations or racing heartbeat Respiratory/Chest Respiratory/Chest: Denies cough, dyspnea or orthopnea Gastrointestinal Gastrointestinal: Denies abdominal pain, diarrhea, nausea or vomiting Genitourinary Genitourinary ED: Denies dysuria, hematuria or urinary frequency Musculoskeletal Musculoskeletal: Denies arthralgias or myalgias Integumentary Denies abscess or rash Neurologic Neurologic: Reports other Details: Altered mental status ; Denies headache(s) or weakness Psychiatric Psychiatric: Denies anxiety, depression, suicidal ideation or suicidal thoughts Endocrine Endocrinology: Denies polydipsia, polyphagia or polyuria Allergic/Immunologic Allergic/Immunologic ED: Denies mouth swelling, tongue swelling or urticaria EXAM Physical Exam Const Vital Signs: 07/21/22 20:33 07/21/22 20:36 Temperature 98.9 F 98.9 F Temperature Source Temporal Temporal Pulse Rate 77 77 Respiratory Rate 18 18 Blood Pressure 151/74 H 151/74 H Blood Pressure Mean 99 99 Pulse Ox 93 93 Oxygen Delivery Method Room Air Room Air Positive well nourished and well developed General Appearance ED: well developed HEENT Reports normocephalic, head/scalp atraumatic and moist mucous membranes Eyes PERRL and EOMs intact bilaterally Neck no lymphadenopathy, supple and no JVD Resp normal respiratory effort and clear to auscultation bilaterally Cardio regular rate, regular rhythm and no murmurs GI normal to inspection, nondistended, normoactive bowel sounds and non-tender Palpation: soft Back/Spine no CVA tenderness and normal ROM Extremity normal to inspection General Extremety ED: Negative for edema General Extremity: Negative for edema Neuro CN's II-XII intact bilaterally Sensorium / Orientation: alert and orientation impaired Motor Exam: strength 5/5 throughout Psych Mood & Affect: Negative for depressed or tearful Skin no rashes or lesions noted and no wounds MDM MDM MDM Narrative Medical decision making narrative: Patient received IV fluids and Rocephin. Barnett catheter was changed. CT of the brain was obtained and final interpretation is pending. Patient would benefit from inpatient care. Plan is admission. Lab Data Attestation: I reviewed the patient's lab results. Discharge Plan Dx/Rx/DC Orders Clinical Impression: Catheter-associated urinary tract infection, Encephalopathy acute, Head injury, Fall Disposition Disposition: Acute Care Hospital [facility] Discharge Date/Time: 07/21/22 22:45
--- NOTE | 2022-07-21 21:19 | HP.PCM.HOS_ITS ---
HPI - General General Date of Admission: 07/21/22 Date of Service: 07/21/22 Chief Complaint: Ongoing fatigue, malaise, falls, confusion w/ recent UTI Diagnosis. HPI Narrative The patient is an 82 y/o M w/ PMHx: Anxiety and Depression, Hx Sick sinus syndrome s/p pacemaker placement, Hx Post-Polio Syndrome w/ chronic dysphagia issues per discussion, TABATHA on CPAP q HS, GERD, HTN, HLD, Anxiety and Depression, Hypothyroidism, Hx TIA, Parkinson's Disease/Lewy Body Dementia who presents to the [facility] ED on 07/21/22 with history of being evaluated earlier in the day at ~ 9 am with increased mild confusion above his baseline as well as fatigue, malaise with recent history of Villeda catheter placement for BPH approximately 1 week prior by his urologist Dr. Ravi with recent discussions for possible TURP with concurrently noted very dark foul-smelling urine and elevated temperatures at home with diagnosis in the emergency room at that time complicated UTI with discharged on Keflex who now represents to the emergency room this evening with increasing fatigue, malaise and worsening confusion with also hallucination and a mechanical fall with no injury nor any loss of consciousness at home prompting family to bring him back in for evaluation. In the emergency room discussed presentation with the ED physician and his Villeda catheter was changed. Patient had also had reported mild sore throat and congestion with negative home COVID testing with chest x-ray earlier in the day unremarkable and a COVID PCR negative of note. Work-up in the ED included T98.9, heart rate 77, BP 151/74, respiratory rate 18, 93 to 95% on room air, CBC with WC 11.3, hemoglobin 14.5, platelet 295 with left shift, unremarkable coags, lactic acid 1.2, CMP from earlier in the day not marked appearing with BUN/creatinine 11/1.08, glucose 109, T bili 1.50 otherwise hepatic profile unremarkable, urinalysis from prior in the day with specific IV 1.025, cloudy, ketones 5, occult blood 250, nitrite positive, leukocyte Estrace 500, urine RBC and WBCs greater than 100 although oddly enough 0 urine bacteria were noted at that time with urine culture pending. CT of the head has been requested and being obtained per ED physician, pending upon requested evaluation of patient. In the ED patient was administered 1 L normal saline bolus and Rocephin IV. [facility] Medical History (Updated 07/21/22 @ 23:27 by Parvin Maguire) Anxiety and depression Ryder's esophagus BiPAP (biphasic positive airway pressure) dependence BPH (benign prostatic hyperplasia) CPAP (continuous positive airway pressure) dependence Essential (primary) hypertension GERD (gastroesophageal reflux disease) Hyperlipidemia Hypothyroidism Lewy body dementia Migraines Narcolepsy Obstructive sleep apnea Pacemaker Parkinson's disease Patent foramen ovale Post-polio syndrome SSS (sick sinus syndrome) TIA (transient ischemic attack) Vasovagal syncope Wears hearing aid in both ears Home Medications levothyroxine 88 mcg tablet 88 mcg PO DAILY thyroid 04/14/18 [History Last Taken Unknown] tamsulosin 0.4 mg capsule 0.8 mg PO QHS prostate 04/14/18 [History Last Taken Unknown] aspirin 81 mg chewable tablet 81 mg PO DAILY@0800 ##30 12/30/18 [Rx Last Taken Unknown] esomeprazole magnesium 40 mg capsule,delayed release 40 mg PO DAILY reflux 05/04/20 [History Last Taken Unknown] cholecalciferol (vitamin D3) 50 mcg (2,000 unit) tablet 25 mcg PO DAILY supplement 06/01/21 [History Last Taken Unknown] loratadine 10 mg tablet 10 mg PO QHS Check with primary doctor 06/01/21 [History Last Taken Unknown] wheat dextrin 3 gram/3.5 gram oral powder packet (Benefiber Clear Sugar Free(dextrin)) 1.5 g PO TID Check with primary doctor 06/01/21 [History Last Taken Unknown] atorvastatin 40 mg tablet 40 mg PO QHS #90 tabs 06/06/22 [Rx Last Taken Unknown] cephalexin 500 mg capsule 500 mg PO Q12 #14 caps 07/21/22 [Rx Last Taken Unknown] finasteride 5 mg tablet 5 mg PO QHS prostate 07/21/22 [History Last Taken Unknown] Allergy/AdvReac Type Severity Reaction Status Date / Time amoxicillin Allergy Severe Convulsions, Verified 07/21/22 09:08 SOB, Hallucinations clavulanic acid Allergy Severe Convulsions, Verified 07/21/22 09:08 [From Augmentin] SOB, Hallucinations ciprofloxacin Allergy Other Verified 07/21/22 09:08 Family History Father Heart disease Brother Heart disease Mother Heart disease Surgical History History of left heart catheterization (02/2016) History of permanent cardiac pacemaker placement (03/03/16) History of thyroidectomy Social History household members: family Smoking Status: Never smoker alcohol intake: current alcohol intake frequency: a few times a month substance use type: does not use caffeine: Yes Type: carbonated beverages and coffee ROS ROS Narrative Admission Review of Systems: CONSTITUTIONAL: No weight loss, fever, chills, + weakness or fatigue. HEENT: + congestion, sore throat. Eyes: No visual loss, blurred vision, double vision or yellow sclerae. Ears, Nose, Throat: No hearing loss, sneezing. SKIN: No rash or itching, lesions, wounds. CARDIOVASCULAR: No chest pain, chest pressure or chest discomfort, palpitations, edema, orthopnea, syncopal events. RESPIRATORY: No shortness of breath, cough or sputum, wheezing, hemoptysis. GASTROINTESTINAL: + anorexia, No nausea, vomiting or diarrhea, abdominal pain, melena, BRBPR. GENITOURINARY: + Dark urine, foul smelling, recent villeda placed secondary to retention with Hx BPH. NEUROLOGICAL: + Confusion, hallucination, fall. Underlying Hx dementia, parkinson's disease/lewey body dementia, No headache, dizziness, syncope, paralysis, ataxia, numbness or tingling in the extremities, focal weakness, change in bowel or bladder control, seizure. MUSCULOSKELETAL: + muscle, back pain, joint pain or stiffness. HEMATOLOGIC: No anemia, bleeding or bruising. LYMPHATICS: No enlarged nodes. No history of splenectomy. PSYCHIATRIC: + history of depression or anxiety. ENDOCRINOLOGIC: No reports of sweating, cold or heat intolerance. No polyuria or polydipsia. ALLERGIES: + history of rhinitis. Vital Signs Vital Signs Vital Signs: 07/21/22 20:33 07/21/22 20:36 Temperature 98.9 F 98.9 F Temperature Source Temporal Temporal Pulse Rate 77 77 Respiratory Rate 18 18 Blood Pressure 151/74 H 151/74 H Blood Pressure Mean 99 99 Pulse Ox 93 93 Oxygen Delivery Method Room Air Room Air Weight Weight: 178 lb Body Mass Index (BMI) 25.5 Physical Exam Narrative Physical Examination: General: Awake, alert, oriented to self and family but unable to give any recent history or events, notably confused, following commands and remains cooperative, seated upright in ED bed, fatigued, ill-appearing. Skin: Normal color, normal turgor, no icterus, no cyanosis except occasional staged ecchymoses. HEENT: AT/NC, EOMI, PERRLA, dry MM, no carotid bruits or JVD noted. Lungs: Mildly diminished, greater bases, appropriate effort, no rales, ronchi or wheezing. Heart: Regular rate and rhythm; no gallop, rub audible. Abdomen: Soft, NTTP, ND, mildly hyperactive BS, no HSM. Catheter and place, being changed. Extremities: No cyanosis, clubbing, or edema. Neurological: Patient awake, alert, oriented as noted, cognitive function not baseline intact although somewhat diminished baseline with underlying history of Parkinson's disease/Lewy body dementia; pupils equally reactive to light and accommodation, cranial nerves II-XII grossly normal, moving all 4 extremities, no focal deficits, strength moderately to severely global decrease secondary to acute presentation Psychiatric: Affect appears flat, fatigued, ill-appearing no acute evidence of depressive or anxiety feelings. Results Lab / Micro Data Result Diagrams: 07/21/22 21:25 Assessment & Plan Assessment/Plan (1) Catheter-associated urinary tract infection: (2) Encephalopathy acute: PLAN: Plan The patient is an 82 y/o M w/ PMHx: Anxiety and Depression, Hx Sick sinus syndrome s/p pacemaker placement, Hx Post-Polio Syndrome w/ chronic dysphagia issues per discussion, TABATHA on CPAP q HS, GERD, HTN, HLD, Anxiety and Depression, Hypothyroidism, Hx TIA, Parkinson's Disease/Lewy Body Dementia who presents to the [facility] ED on 07/21/22 with history of being evaluated earlier in the day at ~ 9 am with increased mild confusion above his baseline as well as fatigue, malaise with recent history of Villeda catheter placement for BPH approximately 1 week prior by his urologist Dr. Ravi with recent discussions for possible TURP with concurrently noted very dark foul-smelling urine and elevated temperatures at home with diagnosis in the emergency room at that time complicated UTI with discharged on Keflex who now represents to the emergency room this evening with increasing fatigue, malaise and worsening confusion with also hallucination and a mechanical fall with no injury nor any loss of consciousness at home prompting family to bring him back in for evaluation. #1. Acute Encephalopathy secondary to Acute Complicated Catheter-Asssociated Urinary Tract Infection: Will admit to [facility] upon ED evaluation remarkable, pending UCx, continue IVFs, monitor I/Os, continue IV Rocephin w/ transition as able pending sensitivities and speciation. Bld cx x 2 obtained in the ED. #2. History of postpolio syndrome with chronic dysphagia: In the emergency room during evaluation patient intermittently coughing which is chronic and family also reports recent oral surgery therefore be cautious will request speech therapy evaluation as certainly could be aspirating, maintain on soft small bites until evaluation with aspiration precautions and assure patient's on PPI as family also notes significant reflux history. #3. Parkinson's disease/Lewy body dementia with unclear behavioral disturbance history: Unclear specific baseline mental status veras however appears significantly worsened per discussion with family, complicates presentation, maintain on fall and aspiration precautions, PT/OT/case management consultation for discharge planning. #4. History TIA: We will continue patient home aspirin, Ativan, not on any hypertensive regimen however BP upon presentation mildly elevated, unclear if with acute presentation, will closely monitor and if appropriate add regimen, as needed IV hydralazine in interim #5. Anxiety and depression: We will continue patient home citalopram regimen. #6. Hypertension: Not on regimen per current list, BP mildly elevated upon presentation, will continue to monitor and add regimen if appropriate, as needed IV hydralazine in interim #7. Hyperlipidemia: We will continue patient home statin therapy. #8. Hypothyroidism: We will continue patient home levothyroxine regimen. #9. History sick sinus syndrome: Status post pacemaker placement. #10. BPH: We will continue patient home finasteride and Flomax regimen. #11. Allergic rhinitis: We will continue patient home loratadine regimen. #12. GERD: We will continue patient on PPI. #13. TABATHA: CPAP qHS. #14. DVT prophylaxis: SCDs, Lovenox. #15. CODE status: Patient DENISSE is his who is and living will is currently in place. Discussed CODE status at length including difference between FULL code, DNR-CCA and DNR-CC status. Following discussions about the differences in these status, requested Full Code status. Advanced Care Planning Face to Face Time: 16 minutes. Charges/Coding Visit Charges Inpatient E&M: 18026 Init Hosp L3 Procedures Hospitalists Procedures: 00336 Advncd Care Plan 30 Min
[2022-07-21 21:40] LABS: Absolute Lymphocyte Count 0.86 X10^3/uL (0.83-4.51); Absolute Neutrophil Count 9.5 X10^3/uL (2.0-7.7); Basophil# 0.03 X10^3/uL; Basophil% 0.3 % (0-1); Eosinophil# 0.06 X10^3/uL; Eosinophils% 0.5 % (0-5); Hematocrit 44.2 % (40-54); Hemoglobin 14.5 g/dL (13.0-16.5); Lymphocyte # 0.86 X10^3/ul (0.83-4.51); Lymphocyte % 7.6 % (19-41); Mean Corp Hgb Conc 32.8 g/dL (32-36); Mean Corpuscular Hgb 28.7 pg (27.0-32.0); Mean Corpuscular Volume 87.5 fL (80-94); Mean Platelet Vol. 10.9 fl (6.2-12.0); Monocyte# 0.85 X10^3/uL; Monocyte% 7.5 % (0-10); NRBC Flagged by Analyzer 0 % (0-5); Neutrophil # 9.46 X10^3/uL (2.7-7.7); Neutrophil % 83.8 % (47-70); Platelet Count 295 K/mm3 (150-450); RBC Distribution Width CV 13.6 % (11.6-14.6); RBC Distribution Width SD 43.8 fl (35.1-43.9); Red Blood Count 5.05 M/mm3 (4.6-6.2); White Blood Count 11.3 K/mm3 (4.4-11.0)
--- NOTE | 2022-07-21 21:49 | CT_ITS ---
We are attempting to reach an attending provider to discuss findings. An addendum with communication details will be sent when the communication is complete. INDICATION: injury EXAMINATION: CT BRAIN - CT Head or Brain W/O Contrast Injection TECHNIQUE: Multiple axial images were obtained of the head without intravenous contrast. A radiation dose optimization technique was used for this scan. IV Contrast dosage and agent: None. COMPARISON: 07/02/[address] FINDINGS: BRAIN PARENCHYMA: New, hyperdense fluid along the right side of the falx measures 3 mm in thickness, up to 20 mm in craniocaudal dimension and up to 20 mm in AP dimension. No other intracranial hemorrhage exemplified. There is no midline shift or mass effect. Areas of decreased density in the periventricular white matter, especially in the left anterior horn region, adjacent to the caudate nucleus, unchanged compared to prior exam. No intracranial mass or mass effect. Hogan/white matter differentiation is maintained and there is no blurring of the basal ganglia. There is no hyperdense vessel. Posterior fossa structures are unremarkable. CSF SPACES: Appropriate for age. No hydrocephalus. Basal cisterns are patent. CALVARIUM, SKULL BASE, PARANASAL SINUSES AND MASTOID AIR CELLS: Intact calvarium and skull base. Paranasal sinuses are clear. Craniocervical junction is within normal limits with degenerative changes C1-C2 articulation noted. No discrete lytic or blastic abnormalities. ORBITS: Both globes, extraocular muscles, optic nerves and retrobulbar fat appear unremarkable. ASPECTS Score for Acute Strokes: 10 CT/Brain/Head without Contrast IMPRESSION: Small parafalcine subdural hemorrhage, right side, measures 3 mm in maximum thickness and 20 x 20 mm and AP and craniocaudal dimension. Consider 3 hour follow-up CT to ensure no enlargement. Chronic small vessel ischemic changes. Electronically Signed: Ba Haywood DO at 0:21 EDT ,
[2022-07-21 21:51] LABS: Partial Thromboplast Time 27.2 Seconds (24.1-36.2)
[2022-07-21 22:04] LABS: Lactic Acid 1.2 mmol/L (0.4-1.9)
[2022-07-21] MEDS: Ceftriaxone 1 GM/50 ML BAG IV (22:05)
[2022-07-21] MEDS: 0.9% Normal Saline 1,000 ML 1000 ML IV (22:06)
[2022-07-21 23:05] VITALS: BP 145/76; PULSE 78; RESP 18; TEMP 36.7; O2SAT 95
[2022-07-21 23:29] VITALS: BMI 26.1
[2022-07-21 23:31] VITALS: BP 158/62; PULSE 79; RESP 18; TEMP 37.4; O2SAT 94
[2022-07-21] MEDS: 0.9% Normal Saline 1,000 ML 100 ML IV (23:55)
[2022-07-22] VITALS (13 sets, daily range): BP systolic 128–180; BP diastolic 43–129; PULSE 78–99; RESP 16–31; TEMP 37.2–37.8; O2SAT 93–97
[2022-07-22] MEDS: Atorvastatin Calcium 40 MG Tablet PO (00:15)
--- NOTE | 2022-07-22 00:43 | CT_ITS ---
STUDY: CT BRAIN WITHOUT CONTRAST REASON FOR EXAM: Male, 82 years old. subdural hematoma follow up RADIATION DOSAGE (If Supplied By Facility): CTDIvol = ( 44.99 ) mGy, DLP = ( 897.35 ) mGycm TECHNIQUE: Transaxial CT imaging of the brain was performed without administration of intravenous contrast material. Individualized dose optimization techniques were used for this CT. COMPARISON: Head CT yesterday FINDINGS: As compared to the most recent prior exam, slightly increased right parafalcine subdural hematoma is noted. Now measuring 2 cm AP by 5 mm wide. Otherwise, stable interval exam. No evidence of mass effect or midline shift. CT/Brain/Head without Contrast IMPRESSION: Slightly increased size of right parafalcine subdural hematoma, remainder is unchanged Electronically Signed: Felix Scott DO at 2:22 EDT ,
--- NOTE | 2022-07-22 01:04 | NURSING ---
Ph call from [employer] on behalf of Dr Burton. Pt has subdural hematoma. Needs a CT Head ordered [address] Same attended and CT notified. Pt being taken to CT at time of report.
--- NOTE | 2022-07-22 01:57 | DS.PCM_ITS ---
Providers Date of Admission: 07/21/22 Date of Discharge: 07/22/22 Primary Care Physician: Dr. Chepe Rodriguez MD Reason For Visit: Encephalopathy, UTI, Fall w/ Acute SDH Diagnosis Discharge Diagnosis (1) Catheter-associated urinary tract infection: Status: Acute Code(s): T83.511A - Infection and inflammatory reaction due to indwelling urethral catheter, initial encounter; N39.0 - Urinary tract infection, site not specified (2) Encephalopathy acute: Status: Acute Code(s): G93.40 - Encephalopathy, unspecified Medications at Discharge Home Medications levothyroxine 88 mcg tablet 88 mcg PO DAILY thyroid 04/14/18 tamsulosin 0.4 mg capsule 0.8 mg PO QHS prostate 04/14/18 esomeprazole magnesium 40 mg capsule,delayed release 40 mg PO DAILY reflux 05/04/20 cholecalciferol (vitamin D3) 50 mcg (2,000 unit) tablet 25 mcg PO DAILY supplement 06/01/21 loratadine 10 mg tablet 10 mg PO QHS Check with primary doctor 06/01/21 wheat dextrin 3 gram/3.5 gram oral powder packet (Benefiber Clear Sugar Free( dextrin)) 1.5 g PO TID Check with primary doctor 06/01/21 atorvastatin 40 mg tablet 40 mg PO QHS #90 tabs 06/06/22 finasteride 5 mg tablet 5 mg PO QHS prostate 07/21/22 ceftriaxone 1 gram/50 mL in dextrose (iso-osmot) intravenous piggyback 1 g (50 mL) IV Q24H #0 ea 07/22/22 Hospital Course Operations None Procedures EKG Summary of Care Provided Minutes Spent on Discharge: 45 Hospital Course: ATTENDING PHYSICIAN DISCHARGE NOTE: Discharge Diagnoses: #1.? Acute Encephalopathy secondary to Acute Complicated Catheter-Asssociated Ur inary Tract Infection and Fall w/ Acute small parafalcine subdural hemorrhage on the right side #2.? History of postpolio syndrome with chronic dysphagia #3.? Parkinson's disease/Lewy body dementia with unclear behavioral disturbance history #4.? History TIA #5.? Anxiety and depression #6.? Hypertension, not on regimen at home #7.? Hyperlipidemia #8.? Hypothyroidism #9.? History sick sinus syndrome, Status post pacemaker placement. #10.? BPH #11.? Allergic rhinitis #12.? GERD #13.? TABATHA on CPAP qHS. #14.? CODE status: Patient DENISSE is his who is and living will is currently in place. Full Code status. Discharge Summary: The patient is an 82 y/o M w/ PMHx: Anxiety and Depression, Hx Sick sinus syndrome s/p pacemaker placement, Hx Post-Polio Syndrome w/ chronic dysphagia issues per discussion, TABATHA on CPAP q HS, GERD, HTN, HLD, Anxiety and Depression, Hypothyroidism, Hx TIA, Parkinson's Disease/Lewy Body Dementia who presents to the [facility] ED on 07/21/22 with history of being evaluated earlier in the day at ~ 9 am with increased mild confusion above his baseline as well as fatigue, malaise with recent history of Barnett catheter placement for BPH approximately 1 week prior by his urologist Dr. Ravi with recent discussions for possible TURP with concurrently noted very dark foul-smelling urine and elevated temperatures at home with diagnosis in the emergency room at that time complicated UTI with discharged on Keflex who now represents to the emergency room this evening with increasing fatigue, malaise and worsening confusion with also hallucination and a mechanical fall with no injury nor any loss of consciousness at home prompting family to bring him back in for evaluation.? In the emergency room discussed presentation with the ED physician and his Barnett catheter was changed.? Patient had also had reported mild sore throat and congestion with negative home COVID testing with chest x-ray earlier in the day unremarkable and a COVID PCR negative of note.?Work-up in the ED included T98.9, heart rate 77, BP 151/74, respiratory rate 18, 93 to 95% on room air, CBC with W C 11.3, hemoglobin 14.5, platelet 295 with left shift, unremarkable coags, lactic acid 1.2, CMP from earlier in the day not marked appearing with BUN/creatinine 11/1.08, glucose 109, T bili 1.50 otherwise hepatic profile unremarkable, urinalysis from prior in the day with specific IV 1.025, cloudy, ketones 5, occult blood 250, nitrite positive, leukocyte Estrace 500, urine RBC and WBCs greater than 100 although oddly enough 0 urine bacteria were noted at that time with urine culture pending.? CT of the head has been requested and being obtained upon requested evaluation of patient.?In the ED patient was administered 1 L normal saline bolus and Rocephin IV. Patient was admitted initially to [facility] upon ED evaluation remarkable, pending UCx, continued IVFs, monitored I/Os, continued IV Rocephin. CT of the head obtained and radiology called with acute read noting a small parafalcine subdural hemorrhage on the right side measuring 3 mm maximum thickness and 20 x 20 mm in AP and craniocauda l dimensions with recommendation per discussion with radiologist for a follow-up 3-hour CT to ensure no enlargement with additionally noted chronic small vessel ischemic changes.?Given CT head was performed shortly after 2100 with read per radiologist performed and called at [address] head at the 3-hour fuentes per his recommendation and read pending upon discharge summary being performed. Called and updated her on these current events and plan of care to transfer patient to tertiary facility with neurosurgery, neurology onsite to be cautious.?Aspirin discontinued which patient last had 07/21/22 AM prior to admission. Until transfer obtained patient upon CT head result, was transitioned to the ICU with continued neurological assessments and close monitoring of his blood pressure with as needed IV agents. Patient accepted at [facility] ICU with Dr. Barroso accepting Physician. Discharge Time: > 45 Minutes DAY OF DISCHARGE PROGRESS NOTE: Subjective: Patient with ongoing confusion, fall at home with increased weakness, fatigue, recent UTI diagnosis earlier in the day. Patient with low grade T since presentation. No obvious chills, nausea, emesis, abdominal pain, chest pain or dyspnea. Reviewed evaluation with family and amenable to transition to [facility] for SDH found on CT. Objective: T99.4, heart rate 70, BP 155/66, respiratory rate 16, 95% on room air (07/22/22 00:30 VS) Physical Examination: General: Awake, alert, oriented to self but unable to give any recent history or events, remains confused, following commands and remains cooperative, seated upright in bed. Skin: Normal color, normal turgor, no icterus, no cyanosis except occasional staged ecchymoses. HEENT: AT/NC, EOMI, PERRLA, dry MM. Lungs: Mildly diminished, greater bases, appropriate effort, no rales, ronchi or wheezing. Heart: Regular rate and rhythm; no gallop, rub audible. Abdomen: Soft, NTTP, ND, normalized BS, catheter and place, changed upon ED presentation upon admission 07/21/22. Extremities: No cyanosis, clubbing, or edema. Neurological: Patient awake, alert, oriented as noted, cognitive function not baseline intact although somewhat diminished baseline with underlying history of Parkinson's disease/Lewy body dementia; pupils equally reactive to light and accommodation, cranial nerves II-XII grossly normal, moving all 4 extremities, no focal deficits, strength moderately to severely global decrease secondary to acute presentation Psychiatric: Affect appears flat, fatigued, ill-appearing, no acute evidence of depressive or anxiety feelings.s. Assessment and Plan: Please see hospital summary above. Weight / BMI Weight Weight: 182 lb 5.156 oz Body Mass Index (BMI) 26.1 ABG / Lab / Microbiology Data Result Diagrams: 07/21/22 21:25 Laboratory: Laboratory Results - last 24 hr 07/21/22 21:25: WBC 11.3 H, RBC 5.05, Hgb 14.5, Hct 44.2, MCV 87.5, MCH 28.7, MCHC 32.8, RDW Std Deviation 43.8, RDW Coeff of Paulo 13.6, Plt Count 295, MPV 10.9, Immature Gran % (Auto) 0.300, Neut % (Auto) 83.8 H, Lymph % (Auto) 7.6 L, [place] % (Auto) 7.5, Eos % (Auto) 0.5, Baso % (Auto) 0.3, Absolute Neuts (auto) 9.5 H, Absolute Lymphs (auto) 0.86, Nucleated RBC % 0 07/21/22 21:25: PT 13.0, INR 1.0, APTT 27.2 07/21/22 21:25: Lactic Acid 1.2 Radiography Diagnostic Testing: Radiology Impression Brain CT 07/21/22 21:49 IMPRESSION: Small parafalcine subdural hemorrhage, right side, measures 3 mm in maximum thickness and 20 x 20 mm and AP and craniocaudal dimension. Consider 3 hour follow-up CT to ensure no enlargement. Chronic small vessel ischemic changes. Electronically Signed: Ba Haywood DO at 0:21 EDT , ADDENDUM: 07/22/22 0041 IMPRESSION: Small parafalcine subdural hemorrhage, right side, measures 3 mm in maximum thickness and 20 x 20 mm and AP and craniocaudal dimension. Consider 3 hour follow-up CT to ensure no enlargement. Chronic small vessel ischemic changes. N.B. : The above Results were Read Back by Ba Haywood DO to MD Micehal, and understanding confirmed on 07/22/2022 00:34:51 (ET). Electronically Signed: Ba Haywood DO at 0:21 EDT , Meaningful Use Info Meaningful Use Diagnoses (Choose all that apply): None applicable Discharge Plan Admission Admit Date/Time: 07/21/22 21:19 Primary Reason for Your Visit: Encephalopathy, Complicated UTI w/ indwelling catheter, Fall w/ SDH Attending Provider: Bronwyn Burton Primary Care Provider: Chepe Rodriguez Discharge Orders/Prescriptions Prescriptions: New ceftriaxone in dextrose,iso-os 1 gram/50 mL Piggyback 1 g IV Q24H Qty: 0 0RF Continued Benefiber Clear SF (dextrin) 3 gram/3.5 gram powder in packet 1.5 g PO TID Rx Instructions: mix into at least 4 oz water or juice before administering loratadine 10 mg tablet 10 mg PO QHS cholecalciferol (vitamin D3) 50 mcg (2,000 unit) tablet 25 mcg PO DAILY atorvastatin 40 mg tablet 40 mg PO QHS Qty: 90 3RF levothyroxine 88 MCG tablet 88 mcg PO DAILY tamsulosin 0.4 MG capsule 0.8 mg PO QHS esomeprazole magnesium 40 mg capsule,delayed release(DR/EC) 40 mg PO DAILY finasteride 5 mg tablet 5 mg PO QHS Discontinued aspirin 81 MG tablet,chewable 81 mg PO DAILY@0800 Qty: 30 0RF cephalexin 500 mg capsule 500 mg PO Q12 Qty: 14 0RF Referrals / Follow Up: Chepe Rodriguez MD [Primary Care Provider] - Disposition Disposition (needs filled in before D/C Order can be placed): Acute Care Hospital Charges/Coding Visit Charges Inpatient E&M: 68527 Disch Hosp
--- NOTE | 2022-07-22 01:58 | NURSING ---
Called , [facility], to update her on transfer to ICU. She did advise Dr Burton had been in contact with her. She had no further questions or concerns at this time.
[2022-07-22] MEDS: 0.9% Normal Saline 1,000 ML 100 ML IV (02:01)
[2022-07-22] MEDS: hydrALAZINE 20 MG/ML Vial 10 MG IV (02:49)
--- NOTE | 2022-07-22 03:22 | NURSING ---
Pt became increasingly agitated and confused when transferred to ICU. Attempted to rip out IVs and villeda along with taking off monitor wires. Dr. Burton notified and 0.5 Haldol was ordered x1. Pharmacy consulted regarding parkinson's disease and Zofran interaction with Haldol, which pharmacy stated it was okay to give.
[2022-07-22] MEDS: Ondansetron 4 MG/2 ML Vial IV (03:26)
[2022-07-22] MEDS: 0.9% Saline Lock 10 ML Syringe IV (03:26)
[2022-07-22] MEDS: Haloperidol Lactate 5 MG/ML Vial IV (03:27)
--- NOTE | 2022-07-22 03:46 | CT_ITS ---
STUDY: CT BRAIN WITHOUT CONTRAST REASON FOR EXAM: Male, 82 years old. SDH monitoring RADIATION DOSAGE (If Supplied By Facility): CTDIvol = ( 44.99 ) mGy, DLP = ( 914.22 ) mGycm TECHNIQUE: Transaxial CT imaging of the brain was performed without administration of intravenous contrast material. Individualized dose optimization techniques were used for this CT. COMPARISON: Head CT 3 hours earlier FINDINGS: As compared to the exam from 3 hours earlier, no significant interval change in right parafalcine subdural hematoma. Remainder of the exam is unchanged. CT/Brain/Head without Contrast IMPRESSION: Stable interval exam as compared to 3 hours earlier Electronically Signed: Felix Scott DO at 5:11 EDT ,
--- NOTE | 2022-07-22 05:30 | NURSING ---
Called report to Rachelle PAYAN at [facility].
[2022-07-22 06:06] LABS: Magnesium 1.9 mg/dL (1.6-2.6)
--- NOTE | 2022-07-22 06:55 | NURSING ---
Report given to Physician's ambulance, assisted to load pt up on cot w/ belongings.
== END 2022-07-22 07:00 | disposition short-term general hospital (02) | DRG 698 ==
LOC: ED 21:27 → MS3 22:00 → ICU 07-22 01:58
PROVIDERS: Admitting Provider Family Medicine; Emergency Provider Emergency Medicine; PCP Family Medicine; Visit Provider Family Medicine
DX: T83.511A Infection and inflammatory reaction due to indwelling urethral catheter, initial encounter (principal); G93.41 Metabolic encephalopathy; S06.5X9A Traumatic subdural hemorrhage with loss of consciousness of unspecified duration, initial encounter; Q21.1 Atrial septal defect; I49.5 Sick sinus syndrome; F02.80 Dementia in other diseases classified elsewhere, unspecified severity, without behavioral disturbance, psychotic disturbance, mood disturbance, and anxiety; G31.83 Neurocognitive disorder with Lewy bodies; G20 Parkinson's disease; F41.9 Anxiety disorder, unspecified; E03.9 Hypothyroidism, unspecified; E78.5 Hyperlipidemia, unspecified; I10 Essential (primary) hypertension; K21.9 Gastro-esophageal reflux disease without esophagitis; G47.33 Obstructive sleep apnea (adult) (pediatric); J30.2 Other seasonal allergic rhinitis; W19.XXXA Unspecified fall, initial encounter; N39.0 Urinary tract infection, site not specified; F32.A Depression, unspecified; N40.0 Benign prostatic hyperplasia without lower urinary tract symptoms; Z86.73 Personal history of transient ischemic attack (TIA), and cerebral infarction without residual deficits; G14 Postpolio syndrome; Z79.82 Long term (current) use of aspirin; Z79.899 Other long term (current) drug therapy; Z95.0 Presence of cardiac pacemaker; R13.10 Dysphagia, unspecified; Y84.6 Urinary catheterization as the cause of abnormal reaction of the patient, or of later complication, without mention of misadventure at the time of the procedure
CPT/HCPCS: 70450; 71045; 80053; 81001; 83605; 83735; 85025; 85610; 85730; 87077; 87086; 87088; 87186; 87635; 96361; 96365; 99251; 99281; 99283; J7030; A4216; G0463; J2405; U0003; U0005

== ENCOUNTER → 2022-08-09 | Outpatient (CLI) | payer MEDICARE, OTHER, SELFPAY ==
--- NOTE | 2022-08-09 14:52 | CT_ITS ---
STUDY: CT BRAIN WITHOUT CONTRAST REASON FOR EXAM: Male, 82 years old. DISORIENTATION and falls. RADIATION DOSAGE (If Supplied By Facility): CTDIvol = ( 44.99 ) mGy, DLP = ( 897.35 ) mGycm TECHNIQUE: Transaxial CT imaging of the brain was performed without administration of intravenous contrast material. Individualized dose optimization techniques were used for this CT. COMPARISON: Comparison is made with prior study dated 07/22/2022. FINDINGS: Normal soft tissue structures. Normal calvarium. There is mild cerebral atrophy with widening of the extra-axial spaces and ventricular dilatation. There are areas of decreased attenuation within the white matter tracts of the supratentorial brain, consistent with microvascular disease changes. Normal basal ganglia and thalami. Normal brainstem. Normal cerebellum. There is no intracranial hemorrhage. There are no findings of an acute ischemic infarction. Atherosclerotic calcification of the cavernous portions of the internal carotid arteries bilaterally. Normal visualized paranasal sinuses. CT/Brain/Head without Contrast IMPRESSION: Chronic involutional changes of the brain. Electronically Signed: Brenden Kang MD at 15:12 EDT ,
== END | disposition home or self-care (01) ==
LOC: CT 14:40
PROVIDERS: PCP Family Medicine; Referring Provider Family Medicine; Visit Provider Family Medicine
DX: S06.5X9A Traumatic subdural hemorrhage with loss of consciousness of unspecified duration, initial encounter (principal); R41.0 Disorientation, unspecified
CPT/HCPCS: 70450

== ENCOUNTER 2022-08-11 05:40 | Emergency (ER) | payer MEDICARE, OTHER, SELFPAY ==
[2022-08-11] VITALS (14 sets, daily range): BP systolic 116–203; BP diastolic 55–100; PULSE 60–61; RESP 16–20; TEMP 36.6; O2SAT 92–97; BMI 27.9
--- NOTE | 2022-08-11 05:53 | CT_ITS ---
We are attempting to reach an attending provider to discuss findings. An addendum with communication details will be sent when the communication is complete. STUDY: CT BRAIN WITHOUT CONTRAST REASON FOR EXAM: Male, 82 years old. fall RADIATION DOSAGE (If Supplied By Facility): CTDIvol = ( 44.99 ) mGy, DLP = ( 914.22 ) mGycm TECHNIQUE: Transaxial CT imaging of the brain was performed without administration of intravenous contrast material. Individualized dose optimization techniques were used for this CT. COMPARISON: No relevant priors. FINDINGS: Normal soft tissue structures. Normal calvarium. Normal size ventricles and extra-axial spaces for the patient''s age. Normal white matter tracts of the cerebral hemispheres. Normal basal ganglia and thalami. Normal brainstem. Normal cerebellum. There is right posterior interhemispheric dural hematoma measuring up to 7 in maximum thickness. There are no findings of an acute ischemic infarction. Normal visualized paranasal sinuses. CT/Brain/Head without Contrast IMPRESSION: There is right posterior interhemispheric dural hematoma measuring up to 7 in maximum thickness. Electronically Signed: Prudencio Olivares MD at 6:45 EDT ,
--- NOTE | 2022-08-11 05:53 | CT_ITS ---
STUDY: CT CERVICAL SPINE WITHOUT CONTRAST REASON FOR EXAM: Male, 82 years old. fall RADIATION DOSAGE (If Supplied By Facility): CTDIvol = ( 25.05 ) mGy, DLP = ( 548.95 ) mGycm TECHNIQUE: High resolution transaxial imaging was performed without contrast material. Sagittal and coronal images were reconstructed. Individualized dose optimization techniques were used for this CT. COMPARISON: None FINDINGS: Normal craniovertebral junction. There are degenerative changes of the anterior atlantoaxial articulation. Normal odontoid process. Normal cervical lordosis. Normal vertebral bodies and posterior osseous elements. C2-3: Endplate spondylosis. Central and paracentral disc bulge. Degenerative changes of the bilateral facet joints and uncovertebral joints. Moderate narrowing of the central canal and the bilateral intervertebral neural foramina. C3-4: Endplate spondylosis. Central and paracentral disc bulge. Degenerative changes of the bilateral facet joints and uncovertebral joints. Moderate narrowing of the central canal and the bilateral intervertebral neural foramina. C4-5: Endplate spondylosis. Central and paracentral disc bulge. Degenerative changes of the bilateral facet joints and uncovertebral joints. Moderate narrowing of the central canal and the bilateral intervertebral neural foramina. C5-6: Anterior fusion in good alignment with complete bony bridging. Normal central canal and intervertebral neuroforamina. C6-7: Anterior fusion in good alignment with complete bony bridging. Normal central canal and intervertebral neuroforamina. C7-T1: Normal endplates. Normal disc height and morphology. Normal central canal and intervertebral neuroforamina. Normal visualized soft tissue structures. CT/Spine Cervical without Contras IMPRESSION: Multilevel degenerative changes, as described above. Electronically Signed: Prudencio Olivares MD at 6:52 EDT ,
--- NOTE | 2022-08-11 06:00 | RAD_ITS ---
STUDY: X-RAY - PELVIS REASON FOR EXAM: Male, 82 years old. fall TECHNIQUE: One view of the pelvis was obtained. COMPARISON: None. FINDINGS: There is a non-specific bowel gas pattern. Normal visualized soft tissue structures. There is narrowing with cortical sclerosis and osteophyte formation of the sacroiliac joint consistent with degenerative osteoarthritic changes. Normal visualized bilateral superior and inferior pubic rami. There are degenerative changes of the pubic symphysis with articular narrowing and sclerosis. Normal ischial tuberosities. There are osteoarthritic changes of the right femoral head with marginal osteophyte formation. Normal right acetabulum. There is mild articular joint space narrowing of the right hip. There are osteoarthritic changes of the left femoral head with marginal osteophyte formation. Normal left acetabulum. There is mild articular joint space narrowing of the left hip. RAD/Pelvis 1 or 2 Views IMPRESSION: Degenerative arthrosis of the pelvis. Electronically Signed: Prudencio Olivares MD at 6:43 EDT ,
--- NOTE | 2022-08-11 06:15 | EDS_ITS ---
HPI History of Present Illness Chief Complaint: Fall Narrative Narrative: Patient is an 82-year-old male with past medical history of BPH hypothyroidism and hyperlipidemia. He lives at home with his and his son lives next door and checks in on him. The patient needs to ambulate with a walker. This morning the patient was standing up next to the bed with his walker trying to urinate when he lost his balance and fell. He denies loss of consciousness but was having increased pain after fall and secondary to his EMS was called. Patient states pain is spontaneously improving upon arrival to the ER but with the fall and the initial severity of the pain was concern for underlying trauma and he was brought in for evaluation [facility] Medical History (Updated 08/11/22 @ 07:[address] Shay Wtason, DO) Anxiety and depression Ryder's esophagus BiPAP (biphasic positive airway pressure) dependence BPH (benign prostatic hyperplasia) Catheter-associated urinary tract infection CPAP (continuous positive airway pressure) dependence Essential (primary) hypertension GERD (gastroesophageal reflux disease) Hyperlipidemia Hypothyroidism Lewy body dementia Migraines Narcolepsy Obstructive sleep apnea Pacemaker Parkinson's disease Patent foramen ovale Post-polio syndrome SSS (sick sinus syndrome) TIA (transient ischemic attack) Vasovagal syncope Wears hearing aid in both ears Home Medications levothyroxine 88 mcg tablet 88 mcg PO DAILY thyroid 04/14/18 [History Last Taken Unknown] tamsulosin 0.4 mg capsule 0.8 mg PO QHS prostate 04/14/18 [History Last Taken Unknown] esomeprazole magnesium 40 mg capsule,delayed release 40 mg PO DAILY reflux 05/04/20 [History Last Taken Unknown] cholecalciferol (vitamin D3) 50 mcg (2,000 unit) tablet 25 mcg PO DAILY supplement 06/01/21 [History Last Taken Unknown] loratadine 10 mg tablet 10 mg PO QHS Check with primary doctor 06/01/21 [History Last Taken Unknown] wheat dextrin 3 gram/3.5 gram oral powder packet (Benefiber Clear Sugar Free(dextrin)) 1.5 g PO TID Check with primary doctor 06/01/21 [History Last Taken Unknown] atorvastatin 40 mg tablet 40 mg PO QHS #90 tabs 06/06/22 [Rx Last Taken Unknown] finasteride 5 mg tablet 5 mg PO QHS prostate 07/21/22 [History Last Taken Unknown] Allergy/AdvReac Type Severity Reaction Status Date / Time amoxicillin Allergy Severe Convulsions, Verified 08/11/22 05:46 SOB, Hallucinations clavulanic acid Allergy Severe Convulsions, Verified 08/11/22 05:46 [From Augmentin] SOB, Hallucinations ciprofloxacin Allergy Other Verified 08/11/22 05:46 Family History Father Heart disease Brother Heart disease Mother Heart disease Surgical History History of left heart catheterization (02/2016) History of permanent cardiac pacemaker placement (03/03/16) History of thyroidectomy Social History household members: family Smoking Status: Never smoker alcohol intake: current alcohol intake frequency: a few times a month substance use type: does not use caffeine: Yes Type: carbonated beverages and coffee ROS ROS ED Constitutional Constitutional ED: Denies chills or fever(s) ENT ENT ED: Denies sore throat Cardiovascular Cardiovascular: Denies chest pain Respiratory/Chest Respiratory/Chest: Denies cough or dyspnea Gastrointestinal Gastrointestinal: Denies abdominal pain, diarrhea, nausea or vomiting Genitourinary Genitourinary ED: Denies dysuria Musculoskeletal Musculoskeletal: Reports neck pain; Denies back pain or myalgias Integumentary Denies rash Neurologic Neurologic: Reports headache(s) Hematologic/Lymphatic Hematologic/Lymphatic: Denies easy bleeding or easy bruising EXAM Physical Exam Const Vital Signs: 08/11/22 05:41 08/11/22 05:47 08/11/22 05:54 Temperature 97.9 F Temperature Source Temporal Pulse Rate 60 Respiratory Rate 18 Blood Pressure 182/76 H 184/79 H Blood Pressure Mean 111 114 Pulse Ox 94 Oxygen Delivery Method Room Air Room Air 08/11/22 07:30 08/11/22 07:09 Temperature Temperature Source Pulse Rate 60 60 Respiratory Rate 20 H 18 Blood Pressure 203/64 H 187/69 H Blood Pressure Mean 110 108 Pulse Ox 93 Oxygen Delivery Method Room Air Positive well nourished and well developed General Appearance ED: well developed HEENT HEENT Narrative: No signs of depressed or basilar skull fracture Eyes PERRL and EOMs intact bilaterally Neck supple Neck Narrative: No bony deformity or step-off of the cervical spine there is mild midline pain with palpation Chest Wall palpation of chest normal Chest Narrative: No bony deformity or crepitance of the chest wall Resp normal respiratory effort and clear to auscultation bilaterally Resp Narrative: Breath sounds are diminished throughout but overall clear to auscultation with no signs of distress Cardio regular rate and regular rhythm Rate: other Other Details: Radial pulses are plus 2 out of 4 bilaterally are equal and symmetric GI normal to inspection, nondistended, normoactive bowel sounds, non-tender and non-distended GI Narrative: No voluntary guarding or rigidity no pulsatile mass Auscultation: normoactive bowel sounds Palpation: soft Back/Spine Back/Spine Narrative: No bony deformity or step-off of the thoracic or lumbar spine no midline pain with palpation Extremity normal to inspection Extremity Narrative: This is stable there is no shortening or external rotation of either lower extremity. Patient can lift both legs and arms at his baseline Neuro CN's II-XII intact bilaterally Neuro Narrative: A&O x2 which is baseline mental status per son with no focal neurologic deficits Sensorium / Orientation: alert Psych mental status grossly normal Skin no rashes or lesions noted Skin Narrative: Patient is a superficial skin abrasion to the dorsal aspect of the left hand but the remainder the exam is normal MDM MDM MDM Narrative Medical decision making narrative: Patient arrived to the ER hypertensive but has a history of this and most likely did not take his morning meds and he is in pain so did not think too much of it. He reported he had a mechanical fall so I felt any need for CT of the head and cervical spine and pelvis x-ray at this time. CT of the head showed a in terhemispheric dural hematoma. We do not have neurosurgery at this facility and therefore patient/family request transfer to [facility]. They were contacted and do agree to accept the patient at this time. The patient has remained hypertensive and as this can cause a risk for bleeding expansion he was started on the Cardene drip with goal to keep systolic blood pressure under 150. Patient's blood work revealed no clinically significant findings and he remained awake and at baseline mental status with no airway compromise. Therefore I do not believe there is necessarily need to fly the patient need to be transferred by ground as he has been stable with no derangement to his baseline mental status Lab Data Attestation: I reviewed the patient's lab results. Labs: Laboratory Results - last 24 hr 08/11/22 08/11/22 08/11/22 06:55 06:55 06:55 WBC 6.4 RBC 4.55 L Hgb 12.9 L Hct 39.2 L MCV 86.2 MCH 28.4 MCHC 32.9 RDW Std Deviation 42.2 RDW Coeff of Paulo 13.6 Plt Count 232 MPV 11.0 Immature Gran % (Auto) 0.900 Neut % (Auto) 71.6 H Lymph % (Auto) 17.8 L Alger % (Auto) 7.4 Eos % (Auto) 2.0 Baso % (Auto) 0.3 Absolute Neuts (auto) 4.6 Absolute Lymphs (auto) 1.13 Nucleated RBC % 0 PT 13.8 INR 1.1 APTT 28.5 Sodium 142 Potassium 3.1 L Chloride 106 Carbon Dioxide 31.0 Anion Gap 5 BUN 9 Creatinine 0.99 Estim Creat Clear Calc 61.45 Est GFR (MDRD) Af Amer 94 Est GFR (MDRD) Non-Af 77 BUN/Creatinine Ratio 9.1 L Glucose 102 Calcium 10.1 Radiography Diagnostic Testing: Clinical Impression(s) from Imaging Studies Brain CT 08/11/22 05:53 IMPRESSION: There is right posterior interhemispheric dural hematoma measuring up to 7 in maximum thickness. Electronically Signed: Prudencio Olivares MD at 6:45 EDT Reading Location ID and State: [facility] / [place] Tel , Service support , ADDENDUM: 08/11/22 0717 IMPRESSION: There is right posterior interhemispheric dural hematoma measuring up to 7 in maximum thickness. N.B. : The above Results were Read Back by Prudencio Olivares MD to Dr. Thor MD, and understanding confirmed on 08/11/2022 07:10:45 (ET). Electronically Signed: Prudencio Olivares MD at 6:45 EDT , Cervical Spine CT 08/11/22 05:53 IMPRESSION: Multilevel degenerative changes, as described above. Electronically Signed: Prudencio Olivares MD at 6:52 EDT , Pelvis X-Ray 08/11/22 06:00 IMPRESSION: Degenerative arthrosis of the pelvis. Electronically Signed: Prudencio Olivares MD at 6:43 EDT , 1 view pelvis x-ray as interpreted by the emergency medicine physician reveals degenerative changes without acute fracture or dislocation Critical Care Time Critical Care Time: Yes Critical care time (excluding procedures): - (Please note critical care time of 33 minutes) Discharge Plan Triage Chief Complaint: Fall ED Provider: Shay Watson Dx/Rx/DC Orders Clinical Impression: Subdural hematoma, acute, Accidental fall, Hypertension, Parkinson's disease Prescriptions: No Action Benefiber Clear SF (dextrin) 3 gram/3.5 gram powder in packet 1.5 g PO TID Rx Instructions: mix into at least 4 oz water or juice before administering loratadine 10 mg tablet 10 mg PO QHS cholecalciferol (vitamin D3) 50 mcg (2,000 unit) tablet 25 mcg PO DAILY atorvastatin 40 mg tablet 40 mg PO QHS Qty: 90 3RF levothyroxine 88 MCG tablet 88 mcg PO DAILY tamsulosin 0.4 MG capsule 0.8 mg PO QHS esomeprazole magnesium 40 mg capsule,delayed release(DR/EC) 40 mg PO DAILY finasteride 5 mg tablet 5 mg PO QHS Primary Care Provider: Chepe Rodriguez Referrals: Chepe Rodriguez MD [Primary Care Provider] - Disposition Disposition: Acute Care Hospital Discharge Location: [facility]
[2022-08-11 07:02] LABS: Absolute Lymphocyte Count 1.13 X10^3/uL (0.83-4.51); Absolute Neutrophil Count 4.6 X10^3/uL (2.0-7.7); Basophil# 0.02 X10^3/uL; Basophil% 0.3 % (0-1); Eosinophil# 0.13 X10^3/uL; Hematocrit 39.2 % (40-54); Hemoglobin 12.9 g/dL (13.0-16.5); Lymphocyte # 1.13 X10^3/ul (0.83-4.51); Lymphocyte % 17.8 % (19-41); Mean Corp Hgb Conc 32.9 g/dL (32-36); Mean Corpuscular Hgb 28.4 pg (27.0-32.0); Mean Corpuscular Volume 86.2 fL (80-94); Monocyte# 0.47 X10^3/uL; Monocyte% 7.4 % (0-10); NRBC Flagged by Analyzer 0 % (0-5); Neutrophil # 4.55 X10^3/uL (2.7-7.7); Neutrophil % 71.6 % (47-70); Platelet Count 232 K/mm3 (150-450); RBC Distribution Width CV 13.6 % (11.6-14.6); RBC Distribution Width SD 42.2 fl (35.1-43.9); Red Blood Count 4.55 M/mm3 (4.6-6.2); White Blood Count 6.4 K/mm3 (4.4-11.0)
[2022-08-11 07:16] LABS: Anion Gap 5 (5-15); BUN 9 mg/dL (7-18); BUN/Creat Ratio 9.1 RATIO (10-20); Calcium,Total 10.1 mg/dL (8.5-10.1); Chloride 106 mmol/L (98-107); Creatinine, Serum 0.99 mg/dL (0.70-1.30); EST Glomerular Filtration Rate 77 mL/min (>60); Est Glom Filt Rate - Afr Amer 94 mL/min (>60); Estimated Creatinine Clearance 61.45 ml/min; Glucose 102 mg/dL (74-106); Potassium 3.1 mmol/L (3.5-5.1); Sodium Level 142 mmol/L (136-145)
--- NOTE | 2022-08-11 07:21 | NURSING ---
CALLED [facility]ET[facility] ABOUT TRANSFER
[2022-08-11 07:23] LABS: International Normalized Ratio 1.1; Prothrombin Time (Protime)PT. 13.8 SECONDS (11.7-14.9)
[2022-08-11 07:24] LABS: Partial Thromboplast Time 28.5 Seconds (24.1-36.2)
--- NOTE | 2022-08-11 07:35 | RAD_ITS ---
STUDY: X-RAY CHEST REASON FOR EXAM: Male, 82 years old. fall PT LOSS BALANCE AND FELL INTO A WALL AND BOUNCED OFF AND HIT INTO A WINDOW SILE.C/O NECK AND BACK PAIN.NO LOC. HAS SMALL ABRASION ON L HAND TECHNIQUE: Single AP portable view of the chest. COMPARISON: July 21, 2022 FINDINGS: 1. Stable left chest cardiac device and leads 2. Normal heart size 3. Stable cervical spine hardware 4. Stable mediastinal and osseous structures 5. Both lungs are clear, but slightly hyperinflated 6. No visualized consolidation or pleural effusion or pneumothorax There is no demonstrated abnormality of the visualized soft tissue structures of the upper abdomen. RAD/Chest 1 View (Portable) IMPRESSION: * Slight hyperinflation. No consolidation or infiltrates Electronically Signed: Elie Heredia MD at 8:35 EDT ,
--- NOTE | 2022-08-11 07:42 | NURSING ---
[facility] T2 [id number] NURSE TO NURSE [phone]
--- NOTE | 2022-08-11 07:47 | NURSING ---
CALLED [facility], ETA IS 60 TO 90 MIN
[2022-08-11] MEDS: Nicardipine HCl-0.9% Sod Chlor 20 MG/200 ML IV.SOLN 50 MG CONT INF (07:49)
[2022-08-11] MEDS: Morphine 2 MG/ML Syringe IV (08:09)
[2022-08-11] MEDS: Ondansetron 4 MG/2 ML Vial IV (08:09)
--- NOTE | 2022-08-11 08:40 | ED.RN ---
DR. HARVEY AWARE BP 122/55. DR. HARVEY REPORTS TO MAINTAIN CARDENE DRIP IS CURRENTLY INFUSING. SEE MAR.
--- NOTE | 2022-08-11 08:51 | ED.RN ---
PT BP 116/55. DR. HARVEY INFORMED. OPAL ON HOLD AT THIS TIME.
== END 2022-08-11 09:35 | disposition short-term general hospital (02) ==
PROVIDERS: Emergency Provider Emergency Medicine; PCP Family Medicine; Visit Provider Emergency Medicine
DX: S06.5X0A Traumatic subdural hemorrhage without loss of consciousness, initial encounter (principal); G20 Parkinson's disease; I49.5 Sick sinus syndrome; F32.A Depression, unspecified; F41.9 Anxiety disorder, unspecified; N40.0 Benign prostatic hyperplasia without lower urinary tract symptoms; I10 Essential (primary) hypertension; K21.9 Gastro-esophageal reflux disease without esophagitis; E78.5 Hyperlipidemia, unspecified; E03.9 Hypothyroidism, unspecified; G43.909 Migraine, unspecified, not intractable, without status migrainosus; G47.33 Obstructive sleep apnea (adult) (pediatric); G14 Postpolio syndrome; Q21.1 Atrial septal defect; Z86.73 Personal history of transient ischemic attack (TIA), and cerebral infarction without residual deficits; Z95.0 Presence of cardiac pacemaker; Z79.899 Other long term (current) drug therapy; W19.XXXA Unspecified fall, initial encounter
CPT/HCPCS: 70450; 71045; 72125; 72170; 80048; 85025; 85610; 85730; 87811; 96365; 96375; 99284; A4216; J2405